=== PATIENT | male | born 1965 | race Caucasian/White ===

== ENCOUNTER 2016-05-13 05:44 | Inpatient (IN) | payer BC ==
[2016-05-13] VITALS (42 sets, daily range): BP systolic 66–157; BP diastolic 37–122; PULSE 73–125; RESP 17–33; TEMP 92.7–97.6; O2SAT 83–100
[~2016-05-13] VITALS: Ht 182.9 cm; Wt 90.3 kg
[~2016-05-13 05:44] MED LIST: CARV12.548 PO; FERR-69 PO; LEVO500T20 PO; LISI-600 PO; LISI10TA5 PO; METR500T PO; NOR10 PO; ROSU40TA PO
[2016-05-13] MEDS ORDERED: EPINEPHrine 1 MG/ML AMP ONE (06:03)
[2016-05-13 06:27] LABS: BASOPHILS # (AUTO) 0.1 K/uL (0.0-0.2); BASOPHILS % (AUTO) 1.6 % (0.0-2.0); EOSINOPHILS # (AUTO) 0.1 K/uL (0.0-0.4); EOSINOPHILS % (AUTO) 0.8 % (0.0-4.0); HEMATOCRIT 41.3 % (36-54); HEMOGLOBIN 13.5 g/dL (14.0-18.0); LYMPHOCYTES # (AUTO) 4.8 K/uL (1.0-5.5); LYMPHOCYTES % (AUTO) 51.7 % (20.5-51.5); MEAN CORPUSCULAR HEMOGLOBIN 27 pg (27-31); MEAN CORPUSCULAR HGB CONC 33 % (32-36); MEAN CORPUSCULAR VOLUME 83 fL (79.0-98.0); MONOCYTES # (AUTO) 0.5 K/uL (0.0-1.0); MONOCYTES % (AUTO) 5.4 % (1.7-9.3); NEUTROPHILS # (AUTO) 3.8 K/uL (1.8-7.7); NEUTROPHILS % (AUTO) 40.5 % (40.0-70.0); PLATELET COUNT (AUTO) 205 K/uL (130-430); RED BLOOD CELL COUNT(AUTO) 4.97 MIL/uL (4.2-6.2); RED CELL DISTRIBUTION WIDTH 14.8 % (9.0-15.0); WHITE BLOOD COUNT (AUTO) 9.3 K/uL (4.8-10.8)
[2016-05-13 06:32] LABS: CALCIUM 7.2 mg/dL (8.4-11.0); CREATININE 1.08 mg/dL (0.55-1.30); POTASSIUM 3.7 mmol/L (3.5-5.1)
[2016-05-13 06:34] LABS: INR 1.2 (0.80-1.20); PROTHROMBIN TIME 13.3 SECS (9.5-12.5)
[2016-05-13 06:38] LABS: ALBUMIN 2.3 g/dL (3.4-4.8); TOTAL BILIRUBIN 0.2 mg/dL (0.0-1.0); TOTAL PROTEIN, SERUM 5.1 g/dL (6.4-8.3)
[2016-05-13] MEDS ORDERED: ETOMIDATE 20 MG/ 10 ML VIAL (AMIDATE) IVP ONE (07:15)
[2016-05-13] MEDS ORDERED: SUCCINYLCHOLINE CHLORIDE 20 MG/ML(QUELICIN) IVP ONE (07:15)
[2016-05-13] MEDS ORDERED: NACL 0.9% 1,000 ML IV ONE ×3 (07:15)
[2016-05-13 07:22] LABS: BLOOD GAS PH 7.035 (7.350-7.450)
[2016-05-13 07:23] LABS: ABG TOTAL HEMOGLOBIN 16.1 G/dL (12.0-18.0); BLOOD GAS BASE EXCESS -16.2 mmol/L (-3.0-3.0); BLOOD GAS COHb% 1.7 % (0.5-1.5); BLOOD GAS HHB 1.5 % (0.0-6.0); BLOOD O2Hb% 96.1 % (94.0-97.0)
[2016-05-13] MEDS ORDERED: NOREPINEPHRINE 4 MG/4 ML VIAL IV ONE (07:27)
[2016-05-13] MEDS ORDERED: NOREPINEPHRINE BITARTRATE 4 MG in NS 250 ML IV ONE ×4 (07:30)
[2016-05-13] MEDS: NACL 0.9% 1,000 ML IV SCH ×2 (07:45→15:34)
[2016-05-13] MEDS ORDERED: SUCCINYLCHOLINE CHLORIDE 20 MG/ML(QUELICIN) ONE (09:00)
[2016-05-13] MEDS ORDERED: ETOMIDATE 20 MG/ 10 ML VIAL (AMIDATE) ONE ×2 (09:00→10:00)
[2016-05-13 09:21] LABS: BLOOD GAS BASE EXCESS -13.8 mmol/L (-3.0-3.0); BLOOD GAS PH 7.166 (7.350-7.450)
[2016-05-13 09:22] LABS: ABG TOTAL HEMOGLOBIN 16.3 G/dL (12.0-18.0); BLOOD GAS COHb% 0.9 % (0.5-1.5); BLOOD GAS HHB 2.9 % (0.0-6.0); BLOOD O2Hb% 95.8 % (94.0-97.0)
[2016-05-13] MEDS ORDERED: NOREPINEPHRINE BITARTRATE 4 MG in D5W 246 ML IV SCH (09:30)
[2016-05-13 09:40] LABS: INR 1.3 (0.80-1.20); PROTHROMBIN TIME 13.9 SECS (9.5-12.5)
[2016-05-13] MEDS ORDERED: ROCURONIUM BROMIDE 10 MG/ML (ZEMURON) ONE (10:00)
[2016-05-13 11:08] LABS: ABG TOTAL HEMOGLOBIN 16.9 G/dL (12.0-18.0); BLOOD GAS PH 7.184 (7.350-7.450); BLOOD O2Hb% 97.5 % (94.0-97.0)
[2016-05-13 11:09] LABS: BLOOD GAS COHb% 0.8 % (0.5-1.5)
[2016-05-13 11:10] LABS: BLOOD GAS HHB 1.3 % (0.0-6.0)
[2016-05-13 15:06] LABS: BILIRUBIN,URINE NEGATIVE (NEGATIVE); BLOOD, URINE NEGATIVE (NEGATIVE); CLARITY/URINE SL HAZY (CLEAR); COLOR,URINE YELLOW (YELLOW); GLUCOSE,URINE NEGATIVE (NEGATIVE); KETONES,URINE NEGATIVE (NEGATIVE); LEUKOCYTE ESTERASE ,URINE NEGATIVE (NEGATIVE); NITRITE, URINE NEGATIVE (NEGATIVE); PROTEIN URINE TRACE (NEGATIVE); UROBILINOGEN,URINE 0.2 (0.2-1.0)
[2016-05-13] MEDS: NOREPINEPHRINE BITARTRATE 4 MG in D5W 246 ML IV PRN ×2 (15:15→18:37)
[2016-05-13] MEDS: PROPOFOL DRIP 100 ML IV PRN (15:29)
[2016-05-13] MEDS: PANTOPRAZOLE SODIUM 40 MG/VIAL (PROTONIX) IVP SCH (15:29)
[2016-05-13 15:55] LABS: BACTERIA,URINE MODERATE /HPF (None Seen); RBC,URINE 0-3 /HPF (0-3); URINE AMORPHOUS URATE 2+ /HPF (None Seen)
[2016-05-13 16:43] LABS: BARBITURATE, URINE NEGATIVE (NEG <=200); BENZODIAZEPINE, URINE NEGATIVE (NEG <=150); CANNABINOID, URINE NEGATIVE (NEG <=50); COCAINE, URINE NEGATIVE (NEG <=150); METHAMPHETAMINES SCREEN,URINE NEGATIVE (NEG <=500); OPIATE, URINE NEGATIVE (NEG <=100); PHENCYCLIDINE SCREEN,URINE NEGATIVE (NEG <=25); UR TRICYCLIC ANTIDEPRESSANTS NEGATIVE (NEG <=300); URINE AMPHETAMINE NEGATIVE (NEG <=500); URINE METHADONE NEGATIVE (NEG <=200); URINE OXYCODONE SCREEN NEGATIVE (NEG <=100); URINE PROPOXYPHENE SCREEN NEGATIVE (NEG <=300)
[2016-05-13 17:08] LABS: CKMB RELATIVE INDEX 2.8 (0.0-2.9); CREATINE KINASE MB 46.7 ng/mL (0-3.6)
[2016-05-13] MEDS ORDERED: LORazepam 2 MG/ML VIAL ONE (17:22)
[2016-05-13 17:37] LABS: BLOOD GAS PH 7.227 (7.350-7.450)
[2016-05-13 17:38] LABS: ABG TOTAL HEMOGLOBIN 17.2 G/dL (12.0-18.0); BLOOD GAS BASE EXCESS -13.5 mmol/L (-3.0-3.0); BLOOD GAS COHb% 0.5 % (0.5-1.5); BLOOD GAS HHB 5.9 % (0.0-6.0); BLOOD O2Hb% 93.4 % (94.0-97.0)
[2016-05-13] MEDS ORDERED: LORazepam 2 MG/ML VIAL IVP PRN ×2 (17:45)
[2016-05-13 23:26] LABS: CKMB RELATIVE INDEX 2.3 (0.0-2.9); CREATINE KINASE MB 84.6 ng/mL (0-3.6)
[2016-05-13] MEDS ORDERED: DOPamine PREMIX 250 ML IV ONE (23:51)
[2016-05-14] VITALS (106 sets, daily range): BP systolic 79–142; BP diastolic 49–108; PULSE 72–151; RESP 25–37; TEMP 86.8–102.2; O2SAT 91–100
[2016-05-14 00:26] LABS: HEMATOCRIT 49.5 % (36-54); HEMOGLOBIN 15.8 g/dL (14.0-18.0)
[2016-05-14] MEDS: NACL 0.9% 1,000 ML IV SCH ×2 (01:25→07:31)
[2016-05-14] MEDS ORDERED: NOREPINEPHRINE 4 MG/4 ML VIAL IV ONE ×4 (02:30→13:18)
[2016-05-14] MEDS: PROPOFOL DRIP 100 ML IV PRN ×2 (02:37→08:45)
[2016-05-14] MEDS: NOREPINEPHRINE BITARTRATE 4 MG in D5W 246 ML IV PRN ×4 (04:51→10:56)
[2016-05-14 06:50] LABS: BASOPHILS % (AUTO) 0.2 % (0.0-2.0); EOSINOPHILS # (AUTO) 0.1 K/uL (0.0-0.4); EOSINOPHILS % (AUTO) 0.9 % (0.0-4.0); HEMOGLOBIN 15.6 g/dL (14.0-18.0); LYMPHOCYTES # (AUTO) 1.6 K/uL (1.0-5.5); MEAN CORPUSCULAR HEMOGLOBIN 27 pg (27-31); MEAN CORPUSCULAR HGB CONC 32 % (32-36); MEAN CORPUSCULAR VOLUME 83 fL (79.0-98.0); MONOCYTES # (AUTO) 0.3 K/uL (0.0-1.0); MONOCYTES % (AUTO) 1.9 % (1.7-9.3); NEUTROPHILS # (AUTO) 12.5 K/uL (1.8-7.7); PLATELET COUNT (AUTO) 244 K/uL (130-430); RED BLOOD CELL COUNT(AUTO) 5.77 MIL/uL (4.2-6.2); RED CELL DISTRIBUTION WIDTH 14.7 % (9.0-15.0); WHITE BLOOD COUNT (AUTO) 14.5 K/uL (4.8-10.8)
[2016-05-14 06:57] LABS: ALBUMIN 2.7 g/dL (3.4-4.8); CALCIUM 7.1 mg/dL (8.4-11.0); CREATININE 2.91 mg/dL (0.55-1.30); TOTAL BILIRUBIN 0.5 mg/dL (0.0-1.0); TOTAL PROTEIN, SERUM 6.1 g/dL (6.4-8.3)
[2016-05-14] MEDS: DOPamine PREMIX 250 ML IV PRN ×2 (06:58→15:33)
[2016-05-14 07:07] LABS: POTASSIUM 4.7 mmol/L (3.5-5.1)
[2016-05-14 07:54] LABS: BLOOD GAS PH 7.076 (7.350-7.450)
[2016-05-14 07:55] LABS: ABG TOTAL HEMOGLOBIN 16.5 G/dL (12.0-18.0); BLOOD GAS BASE EXCESS -19.1 mmol/L (-3.0-3.0); BLOOD GAS COHb% 0.4 % (0.5-1.5); BLOOD GAS HHB 0.7 % (0.0-6.0); BLOOD O2Hb% 98.6 % (94.0-97.0)
[2016-05-14 08:11] LABS: CKMB RELATIVE INDEX 2.4 (0.0-2.9); CREATINE KINASE MB 106.9 ng/mL (0-3.6)
[2016-05-14] MEDS: PANTOPRAZOLE SODIUM 40 MG/VIAL (PROTONIX) IVP SCH (08:55)
[2016-05-14] MEDS ORDERED: cefTRIAXone 1 GM IVPB PREMIX 50 ML IV SCH (09:00)
[2016-05-14 09:13] LABS: BLOOD GAS PH 7.156 (7.350-7.450)
[2016-05-14] MEDS ORDERED: NACL 0.9% 1,000 ML IV ONE ×2 (09:15→09:45)
[2016-05-14 09:16] LABS: BLOOD GAS BASE EXCESS -17.9 mmol/L (-3.0-3.0); BLOOD GAS COHb% 0.4 % (0.5-1.5); BLOOD GAS HHB 4.9 % (0.0-6.0); BLOOD O2Hb% 94.5 % (94.0-97.0)
[2016-05-14] MEDS ORDERED: SODIUM BICARBONATE 8.4% JECT 50 MEQ/50 ML SYRINGE ONE (09:49)
[2016-05-14] MEDS ORDERED: SODIUM BICARBONATE 8.4% JECT 50 MEQ/50 ML SYRINGE IVP ONE (10:30)
[2016-05-14] MEDS: SODIUM BICARBONATE 8.4% JECT 50 MEQ/50 ML SYRINGE ONE ×2 (10:42→10:53)
[2016-05-14 11:28] LABS: BLOOD GAS PH 7.349 (7.350-7.450)
[2016-05-14 11:29] LABS: ABG TOTAL HEMOGLOBIN 14.4 G/dL (12.0-18.0); BLOOD GAS BASE EXCESS -10.3 mmol/L (-3.0-3.0); BLOOD GAS COHb% 0.2 % (0.5-1.5); BLOOD GAS HHB 7.8 % (0.0-6.0); BLOOD O2Hb% 91.4 % (94.0-97.0)
[2016-05-14] MEDS ORDERED: SODIUM BICARBONATE 8.4% JECT 50 MEQ in 0.45% NACL 1,000 ML IV SCH (12:00)
[2016-05-14 12:30] LABS: HEMATOCRIT 41.5 % (36-54); HEMOGLOBIN 13.8 g/dL (14.0-18.0)
[2016-05-14 14:02] LABS: ABG TOTAL HEMOGLOBIN 14.8 G/dL (12.0-18.0); BLOOD GAS BASE EXCESS -10.5 mmol/L (-3.0-3.0)
[2016-05-14 14:03] LABS: BLOOD GAS COHb% 0.6 % (0.5-1.5)
[2016-05-14] MEDS ORDERED: SODIUM BICARBONATE 8.4% JECT 100 MEQ in 0.45% NACL 1,000 ML IV SCH (14:30)
[2016-05-14] MEDS ORDERED: LACTOBACILLUS RHAMNOSUS GG 1 CAP CAPSULE NG ONE (16:45)
[2016-05-14] MEDS: NOREPINEPHRINE BITARTRATE 8 MG in NS 242 ML IV PRN (16:50)
[2016-05-14] MEDS ORDERED: PHENYLEPHRINE HCL 10 MG/ML VIAL (NEOSYNEPHRINE) ONE (17:14)
[2016-05-14] MEDS ORDERED: DEXTROSE 50% JECT 50 ML DISP.SYRIN ONE (18:06)
[2016-05-14] MEDS ORDERED: COMMUNICATION ORDER XX ONE (18:15)
[2016-05-14] MEDS: PHENYLEPHRINE HCL 30 MG in NS 247 ML IV PRN (18:32)
[2016-05-14] MEDS: SODIUM BICARBONATE IV SCH (18:34)
[2016-05-14] MEDS: [UNRECOGNIZED DRUG - OTHER] IV SCH (18:34)
[2016-05-14] MEDS: D5 IV SCH (18:34)
[2016-05-14] MEDS: levETIRAcetam 500 MG in NS 100 ML IV SCH (20:13)
[2016-05-14] MEDS: LACTOBACILLUS RHAMNOSUS GG 1 CAP CAPSULE NG SCH (20:16)
[2016-05-14] MEDS ORDERED: ACETAMINOPHEN 650 MG/20.3 ML UDC ONE (21:05)
[2016-05-14 21:32] LABS: HEMATOCRIT 40.7 % (36-54); HEMOGLOBIN 13.8 g/dL (14.0-18.0)
[2016-05-15] VITALS (58 sets, daily range): BP systolic 81–124; BP diastolic 39–96; PULSE 92–139; RESP 14–34; TEMP 100.4–101.7; O2SAT 92–100
[2016-05-15] MEDS ORDERED: NOREPINEPHRINE 4 MG/4 ML VIAL IV ONE ×2 (00:34→05:36)
[2016-05-15] MEDS: NOREPINEPHRINE BITARTRATE 8 MG in NS 242 ML IV PRN ×6 (00:54→23:48)
[2016-05-15] MEDS: ACETAMINOPHEN 650 MG/20.3 ML UDC GT PRN ×3 (01:38→20:07)
[2016-05-15] MEDS: D5 IV SCH ×2 (05:38→15:55)
[2016-05-15] MEDS: SODIUM BICARBONATE IV SCH ×2 (05:38→15:55)
[2016-05-15] MEDS: [UNRECOGNIZED DRUG - OTHER] IV SCH ×2 (05:38→15:55)
[2016-05-15 06:34] LABS: EOSINOPHILS % (AUTO) 0.1 % (0.0-4.0); HEMATOCRIT 36.9 % (36-54); HEMOGLOBIN 12.3 g/dL (14.0-18.0); LYMPHOCYTES # (AUTO) 1.1 K/uL (1.0-5.5); LYMPHOCYTES % (AUTO) 6.8 % (20.5-51.5); MEAN CORPUSCULAR HEMOGLOBIN 27 pg (27-31); MEAN CORPUSCULAR HGB CONC 33 % (32-36); MEAN CORPUSCULAR VOLUME 82 fL (79.0-98.0); MONOCYTES # (AUTO) 0.3 K/uL (0.0-1.0); MONOCYTES % (AUTO) 1.9 % (1.7-9.3); NEUTROPHILS # (AUTO) 14.9 K/uL (1.8-7.7); NEUTROPHILS % (AUTO) 91.2 % (40.0-70.0); PLATELET COUNT (AUTO) 165 K/uL (130-430); RED BLOOD CELL COUNT(AUTO) 4.52 MIL/uL (4.2-6.2); RED CELL DISTRIBUTION WIDTH 14.8 % (9.0-15.0); WHITE BLOOD COUNT (AUTO) 16.3 K/uL (4.8-10.8)
[2016-05-15 07:23] LABS: ALBUMIN 1.9 g/dL (3.4-4.8); CREATININE 4.43 mg/dL (0.55-1.30); POTASSIUM 5.2 mmol/L (3.5-5.1); TOTAL BILIRUBIN 0.8 mg/dL (0.0-1.0)
[2016-05-15 07:27] LABS: BLOOD GAS PH 7.345 (7.350-7.450)
[2016-05-15] MEDS: PHENYLEPHRINE HCL 30 MG in NS 247 ML IV PRN ×5 (07:27→20:53)
[2016-05-15 07:28] LABS: ABG TOTAL HEMOGLOBIN 12.9 G/dL (12.0-18.0); BLOOD GAS BASE EXCESS -8.7 mmol/L (-3.0-3.0); BLOOD GAS COHb% 0.2 % (0.5-1.5); BLOOD GAS HHB 1.3 % (0.0-6.0); BLOOD O2Hb% 98.2 % (94.0-97.0)
[2016-05-15 07:39] LABS: CALCIUM 6.6 mg/dL (8.4-11.0)
[2016-05-15] MEDS ORDERED: PIPERACILLIN/TAZO 2.25G/DEX-IS 50 ML IV ONE (08:30)
[2016-05-15] MEDS: LACTOBACILLUS RHAMNOSUS GG 1 CAP CAPSULE NG SCH ×2 (09:03→22:06)
[2016-05-15] MEDS: PANTOPRAZOLE SODIUM 40 MG/VIAL (PROTONIX) IVP SCH (09:03)
[2016-05-15] MEDS: levETIRAcetam 500 MG in NS 100 ML IV SCH ×2 (09:03→22:05)
[2016-05-15] MEDS: PIPERACILLIN/TAZO 2.25G/DEX-IS 50 ML IV SCH ×3 (11:10→23:47)
[2016-05-15] MEDS ORDERED: PIPERACILLIN/TAZO 3.375/DEX-IS 50 ML IV SCH (12:00)
[2016-05-15] MEDS ORDERED: HEPARIN SODIUM,PORCINE 5000 UNITS/ML VIAL IVP ONE (13:30)
[2016-05-15] MEDS: INSULIN REGULAR, HUMAN 100 UNITS/ML, 10 ML VIAL (novoLIN R) SUBCUT PRN (23:46)
[2016-05-16] VITALS (34 sets, daily range): BP systolic 77–129; BP diastolic 43–78; PULSE 81–101; RESP 16–25; TEMP 100–101.1; O2SAT 99–100; Ht 182.9 cm; Wt 90.3 kg
[2016-05-16] MEDS: PHENYLEPHRINE HCL 30 MG in NS 247 ML IV PRN ×3 (00:48→12:05)
[2016-05-16] MEDS: INSULIN REGULAR, HUMAN 100 UNITS/ML, 10 ML VIAL (novoLIN R) SUBCUT PRN (03:14)
[2016-05-16] MEDS ORDERED: PHENYLEPHRINE HCL 10 MG/ML VIAL (NEOSYNEPHRINE) ONE ×2 (04:29→04:30)
[2016-05-16] MEDS: PIPERACILLIN/TAZO 2.25G/DEX-IS 50 ML IV SCH ×4 (06:14→23:48)
[2016-05-16] MEDS: NOREPINEPHRINE BITARTRATE 8 MG in NS 242 ML IV PRN ×2 (06:18→12:03)
[2016-05-16] MEDS: [UNRECOGNIZED DRUG - OTHER] IV SCH ×2 (06:18→18:22)
[2016-05-16] MEDS: SODIUM BICARBONATE IV SCH ×2 (06:18→18:22)
[2016-05-16] MEDS: D5 IV SCH ×2 (06:18→18:22)
[2016-05-16 06:51] LABS: ALBUMIN 1.8 g/dL (3.4-4.8); BILIRUBIN,DIRECT 0.3 mg/dL (0.0-0.3); CREATININE 4.62 mg/dL (0.55-1.30); HEMATOCRIT 31.4 % (36-54); HEMOGLOBIN 10.5 g/dL (14.0-18.0); MEAN CORPUSCULAR HEMOGLOBIN 27 pg (27-31); MEAN CORPUSCULAR HGB CONC 34 % (32-36); MEAN CORPUSCULAR VOLUME 80 fL (79.0-98.0); PLATELET COUNT (AUTO) 141 K/uL (130-430); POTASSIUM 3.8 mmol/L (3.5-5.1); RED BLOOD CELL COUNT(AUTO) 3.91 MIL/uL (4.2-6.2); RED CELL DISTRIBUTION WIDTH 15.3 % (9.0-15.0); THYROID STIMULATING HORMONE 5.92 uIu/mL (0.34-4.82); TOTAL BILIRUBIN 0.7 mg/dL (0.0-1.0); WHITE BLOOD COUNT (AUTO) 18.2 K/uL (4.8-10.8)
[2016-05-16 07:11] LABS: CALCIUM 6.7 mg/dL (8.4-11.0)
[2016-05-16 07:22] LABS: ABG TOTAL HEMOGLOBIN 11.2 G/dL (12.0-18.0); BLOOD GAS BASE EXCESS 1.1 mmol/L (-3.0-3.0); BLOOD GAS COHb% 0.3 % (0.5-1.5); BLOOD GAS HHB 2.2 % (0.0-6.0); BLOOD GAS PH 7.517 (7.350-7.450)
[2016-05-16] MEDS: levETIRAcetam 500 MG in NS 100 ML IV SCH ×2 (07:55→20:21)
[2016-05-16] MEDS: ACETAMINOPHEN 650 MG/20.3 ML UDC GT PRN (07:56)
[2016-05-16] MEDS: LACTOBACILLUS RHAMNOSUS GG 1 CAP CAPSULE NG SCH ×2 (07:56→20:21)
[2016-05-16] MEDS: PANTOPRAZOLE SODIUM 40 MG/VIAL (PROTONIX) IVP SCH (07:56)
[2016-05-16 07:57] LABS: BAND % (MANUAL) 18 % (0-6); BASOPHILS % (MANUAL) 0 % (0-2); EOSINOPHILS % (MANUAL) 0 % (0-7); LYMPHOCYTES % (MANUAL) 9 % (20-46); MONOCYTES % (MANUAL) 4 % (0-11)
[2016-05-16] MEDS ORDERED: COMMUNICATION ORDER XX ONE (13:00)
[2016-05-16] MEDS ORDERED: NS IV PRN (13:15)
[2016-05-16] MEDS ORDERED: PHENYLEPHRINE HCL IV PRN (13:15)
[2016-05-16] MEDS: NOREPINEPHRINE BITARTRATE 16 MG in NS 234 ML IV PRN (18:21)
[2016-05-17] VITALS (34 sets, daily range): BP systolic 93–133; BP diastolic 49–75; PULSE 75–96; RESP 14–29; TEMP 98.5–101.3; O2SAT 93–100
[2016-05-17] MEDS: PIPERACILLIN/TAZO 2.25G/DEX-IS 50 ML IV SCH ×3 (05:57→17:26)
[2016-05-17 07:33] LABS: BASOPHILS % (AUTO) 0.2 % (0.0-2.0); EOSINOPHILS % (AUTO) 0.2 % (0.0-4.0); HEMATOCRIT 29.3 % (36-54); HEMOGLOBIN 9.9 g/dL (14.0-18.0); LYMPHOCYTES # (AUTO) 1.4 K/uL (1.0-5.5); LYMPHOCYTES % (AUTO) 7.2 % (20.5-51.5); MEAN CORPUSCULAR HEMOGLOBIN 27 pg (27-31); MEAN CORPUSCULAR HGB CONC 34 % (32-36); MEAN CORPUSCULAR VOLUME 80 fL (79.0-98.0); MONOCYTES # (AUTO) 0.2 K/uL (0.0-1.0); MONOCYTES % (AUTO) 1.2 % (1.7-9.3); NEUTROPHILS # (AUTO) 17.4 K/uL (1.8-7.7); NEUTROPHILS % (AUTO) 91.2 % (40.0-70.0); PLATELET COUNT (AUTO) 104 K/uL (130-430); RED BLOOD CELL COUNT(AUTO) 3.66 MIL/uL (4.2-6.2); RED CELL DISTRIBUTION WIDTH 14.8 % (9.0-15.0)
[2016-05-17 07:55] LABS: ABG TOTAL HEMOGLOBIN 10.6 G/dL (12.0-18.0); BLOOD GAS BASE EXCESS 1.1 mmol/L (-3.0-3.0); BLOOD GAS COHb% 0.3 % (0.5-1.5); BLOOD GAS HHB 2.7 % (0.0-6.0); BLOOD GAS PH 7.464 (7.350-7.450); BLOOD O2Hb% 96.6 % (94.0-97.0)
[2016-05-17 07:56] LABS: ALBUMIN 1.7 g/dL (3.4-4.8); CREATININE 6.45 mg/dL (0.55-1.30); POTASSIUM 3.5 mmol/L (3.5-5.1); TOTAL PROTEIN, SERUM 5.6 g/dL (6.4-8.3)
[2016-05-17 08:03] LABS: CALCIUM 6.9 mg/dL (8.4-11.0)
[2016-05-17] MEDS: LACTOBACILLUS RHAMNOSUS GG 1 CAP CAPSULE NG SCH ×2 (08:41→20:29)
[2016-05-17] MEDS: levETIRAcetam 500 MG in NS 100 ML IV SCH ×2 (08:41→20:29)
[2016-05-17] MEDS: PANTOPRAZOLE SODIUM 40 MG/VIAL (PROTONIX) IVP SCH (08:41)
[2016-05-17] MEDS ORDERED: BISMUTH SUBSALICYLATE 240 ML BOTTLE PO PRN (11:45)
[2016-05-17] MEDS ORDERED: BISMUTH SUBSALICYLATE 240 ML BOTTLE NG PRN (11:45)
[2016-05-17] MEDS: [UNRECOGNIZED DRUG - OTHER] IV SCH (13:08)
[2016-05-17] MEDS: SODIUM BICARBONATE IV SCH (13:08)
[2016-05-17] MEDS: D5 IV SCH (13:08)
[2016-05-17] MEDS: BISMUTH SUBSALICYLATE 262 MG TAB.CHEW NG PRN (14:43)
[2016-05-17] MEDS ORDERED: CALCIUM GLUCONATE 2 GM in NS 100 ML IV ONE (14:45)
[2016-05-17] MEDS: NOREPINEPHRINE BITARTRATE 16 MG in NS 234 ML IV PRN (18:45)
[2016-05-17] MEDS: ACETAMINOPHEN 650 MG/20.3 ML UDC GT PRN (21:21)
[2016-05-18] VITALS (35 sets, daily range): BP systolic 112–143; BP diastolic 54–81; PULSE 80–106; RESP 17–25; TEMP 98.5–99; O2SAT 94–99
[2016-05-18] MEDS: PIPERACILLIN/TAZO 2.25G/DEX-IS 50 ML IV SCH ×4 (00:31→18:25)
[2016-05-18] MEDS: metroNIDAZOLE 500 mg/NS 100 ML IV SCH ×4 (00:43→21:49)
[2016-05-18 06:38] LABS: PROTHROMBIN TIME 11.3 SECS (9.5-12.5)
[2016-05-18 06:49] LABS: ALBUMIN 1.7 g/dL (3.4-4.8); CALCIUM 7.6 mg/dL (8.4-11.0); CREATININE 6.9 mg/dL (0.55-1.30); POTASSIUM 3.4 mmol/L (3.5-5.1); TOTAL BILIRUBIN 0.9 mg/dL (0.0-1.0); TOTAL PROTEIN, SERUM 5.9 g/dL (6.4-8.3)
[2016-05-18 06:53] LABS: HEMOGLOBIN 9.4 g/dL (14.0-18.0); MEAN CORPUSCULAR HEMOGLOBIN 28 pg (27-31); MEAN CORPUSCULAR HGB CONC 35 % (32-36); MEAN CORPUSCULAR VOLUME 80 fL (79.0-98.0); PLATELET COUNT (AUTO) 94 K/uL (130-430); RED BLOOD CELL COUNT(AUTO) 3.39 MIL/uL (4.2-6.2)
[2016-05-18 07:33] LABS: WHITE BLOOD COUNT (AUTO) 13.3 K/uL (4.8-10.8)
[2016-05-18] MEDS: PANTOPRAZOLE SODIUM 40 MG/VIAL (PROTONIX) IVP SCH (08:57)
[2016-05-18] MEDS: LACTOBACILLUS RHAMNOSUS GG 1 CAP CAPSULE NG SCH ×2 (08:57→21:49)
[2016-05-18] MEDS: D5/0.45 NS 1,000 ML IV SCH (08:58)
[2016-05-18 09:33] LABS: BLOOD GAS PH 7.492 (7.350-7.450)
[2016-05-18 09:36] LABS: BLOOD GAS COHb% 0.8 % (0.5-1.5); BLOOD GAS HHB 2.6 % (0.0-6.0); BLOOD O2Hb% 95.7 % (94.0-97.0)
[2016-05-18 10:24] LABS: ATYPICAL LYMPHOCYTES % 0 % (0-0); BAND % (MANUAL) 0 % (0-6); BASOPHILS % (MANUAL) 0 % (0-2); EOSINOPHILS % (MANUAL) 0 % (0-7); LYMPHOCYTES % (MANUAL) 15 % (20-46); MONOCYTES % (MANUAL) 5 % (0-11)
[2016-05-18] MEDS: levETIRAcetam 500 MG in NS 100 ML IV SCH (11:12)
[2016-05-18] MEDS ORDERED: levETIRAcetam 1,000 MG in NS 100 ML IV SCH (15:00)
[2016-05-18] MEDS ORDERED: VALPROATE SODIUM 500 MG in D5W 100 ML IV SCH ×2 (15:00→22:00)
[2016-05-18] MEDS ORDERED: VALPROATE SODIUM 500 MG in D5W 100 ML IV ONE (15:15)
[2016-05-18] MEDS: BISMUTH SUBSALICYLATE 262 MG TAB.CHEW NG PRN (16:03)
[2016-05-18] MEDS: SODIUM BICARBONATE IV SCH (16:04)
[2016-05-18] MEDS: D5 IV SCH (16:04)
[2016-05-18] MEDS: [UNRECOGNIZED DRUG - OTHER] IV SCH (16:04)
[2016-05-18] MEDS ORDERED: VALPROATE SODIUM 100 MG/ML VIAL (DEPACON) IV ONE (21:44)
[2016-05-18] MEDS: VALPROATE SODIUM 500 MG in D5W 100 ML IV SCH (21:50)
[2016-05-18] MEDS: ACETAMINOPHEN 650 MG/20.3 ML UDC GT PRN (22:48)
[2016-05-19] VITALS (36 sets, daily range): BP systolic 92–178; BP diastolic 47–87; PULSE 85–112; RESP 16–29; TEMP 98.1–99.4; O2SAT 99–100
[2016-05-19] MEDS ORDERED: chlorproMAZINE HCL 50 MG/ 2 ML AMP IM PRN
[2016-05-19] MEDS: PIPERACILLIN/TAZO 2.25G/DEX-IS 50 ML IV SCH ×5 (00:24→23:55)
[2016-05-19] MEDS: D5/0.45 NS 1,000 ML IV SCH ×3 (00:25→14:36)
[2016-05-19 06:45] LABS: HEMOGLOBIN 8.7 g/dL (14.0-18.0); MEAN CORPUSCULAR HEMOGLOBIN 27 pg (27-31); MEAN CORPUSCULAR HGB CONC 34 % (32-36); MEAN CORPUSCULAR VOLUME 79 fL (79.0-98.0); PLATELET COUNT (AUTO) 90 K/uL (130-430); RED BLOOD CELL COUNT(AUTO) 3.27 MIL/uL (4.2-6.2); RED CELL DISTRIBUTION WIDTH 14.9 % (9.0-15.0)
[2016-05-19] MEDS: metroNIDAZOLE 500 mg/NS 100 ML IV SCH ×3 (06:46→22:33)
[2016-05-19] MEDS: VALPROATE SODIUM 500 MG in D5W 100 ML IV SCH ×3 (06:46→21:03)
[2016-05-19 06:59] LABS: WHITE BLOOD COUNT (AUTO) 11.9 K/uL (4.8-10.8)
[2016-05-19 07:12] LABS: ALBUMIN 1.6 g/dL (3.4-4.8); CALCIUM 7.3 mg/dL (8.4-11.0); POTASSIUM 3.6 mmol/L (3.5-5.1); TOTAL BILIRUBIN 0.7 mg/dL (0.0-1.0); TOTAL PROTEIN, SERUM 5.6 g/dL (6.4-8.3)
[2016-05-19 07:25] LABS: CREATININE 8.68 mg/dL (0.55-1.30)
[2016-05-19] MEDS: PANTOPRAZOLE SODIUM 40 MG/VIAL (PROTONIX) IVP SCH (08:22)
[2016-05-19] MEDS: ACETAMINOPHEN 650 MG/20.3 ML UDC GT PRN (08:23)
[2016-05-19] MEDS: LACTOBACILLUS RHAMNOSUS GG 1 CAP CAPSULE NG SCH ×2 (08:23→21:02)
[2016-05-19 08:25] LABS: ATYPICAL LYMPHOCYTES % 0 % (0-0); BAND % (MANUAL) 0 % (0-6); BASOPHILS % (MANUAL) 0 % (0-2); EOSINOPHILS % (MANUAL) 2 % (0-7); LYMPHOCYTES % (MANUAL) 22 % (20-46); MONOCYTES % (MANUAL) 8 % (0-11)
[2016-05-19] MEDS ORDERED: LORazepam 2 MG/ML VIAL IM ONE (08:45)
[2016-05-19] MEDS ORDERED: LORazepam 2 MG/ML VIAL ONE (08:46)
[2016-05-19] MEDS ORDERED: ALTEPLASE 2 MG VIAL MC ONE ×2 (10:00→10:15)
[2016-05-19 10:16] LABS: HEPATITIS A AB, IgM Negative (Negative); HEPATITIS B CORE AB, IgM Negative (Negative); HEPATITIS B SURFACE AG Negative (Negative)
[2016-05-19] MEDS ORDERED: DIATR MEGLU/DIATRIZ SOD 30 ML SOLUTION PO ONE (10:47)
[2016-05-19] MEDS: D5 IV SCH (11:59)
[2016-05-19] MEDS: [UNRECOGNIZED DRUG - OTHER] IV SCH (11:59)
[2016-05-19] MEDS: SODIUM BICARBONATE IV SCH (11:59)
[2016-05-19] MEDS: LORazepam 2 MG/ML VIAL IM PRN (18:06)
[2016-05-19] MEDS: LORazepam 2 MG/ML VIAL IVP PRN (22:04)
[2016-05-20] VITALS (36 sets, daily range): BP systolic 114–151; BP diastolic 57–84; PULSE 82–142; RESP 18–34; TEMP 98.1–100.2; O2SAT 99–100
[2016-05-20] MEDS: LORazepam 2 MG/ML VIAL IVP PRN ×3 (02:11→22:56)
[2016-05-20] MEDS: SODIUM BICARBONATE IV SCH (03:04)
[2016-05-20] MEDS: [UNRECOGNIZED DRUG - OTHER] IV SCH (03:04)
[2016-05-20] MEDS: D5 IV SCH (03:04)
[2016-05-20] MEDS: D5/0.45 NS 1,000 ML IV SCH ×2 (04:12→10:45)
[2016-05-20] MEDS: PIPERACILLIN/TAZO 2.25G/DEX-IS 50 ML IV SCH ×3 (05:24→18:21)
[2016-05-20] MEDS: VALPROATE SODIUM 500 MG in D5W 100 ML IV SCH ×4 (05:26→22:08)
[2016-05-20] MEDS: metroNIDAZOLE 500 mg/NS 100 ML IV SCH ×4 (06:01→22:09)
[2016-05-20 07:05] LABS: CREATININE 6.99 mg/dL (0.55-1.30); POTASSIUM 3.3 mmol/L (3.5-5.1)
[2016-05-20 07:10] LABS: ALBUMIN 1.7 g/dL (3.4-4.8); TOTAL BILIRUBIN 0.6 mg/dL (0.0-1.0); TOTAL PROTEIN, SERUM 5.1 g/dL (6.4-8.3)
[2016-05-20 07:17] LABS: AMYLASE 530 U/L (0-100)
[2016-05-20 07:23] LABS: HEMATOCRIT 27.1 % (36-54); HEMOGLOBIN 9.3 g/dL (14.0-18.0); MEAN CORPUSCULAR HEMOGLOBIN 27 pg (27-31); MEAN CORPUSCULAR HGB CONC 34 % (32-36); MEAN CORPUSCULAR VOLUME 79 fL (79.0-98.0); PLATELET COUNT (AUTO) 114 K/uL (130-430); RED BLOOD CELL COUNT(AUTO) 3.42 MIL/uL (4.2-6.2); RED CELL DISTRIBUTION WIDTH 14.6 % (9.0-15.0); WHITE BLOOD COUNT (AUTO) 13.9 K/uL (4.8-10.8)
[2016-05-20 07:40] LABS: LIPASE 3291 U/L (73-393)
[2016-05-20] MEDS: LACTOBACILLUS RHAMNOSUS GG 1 CAP CAPSULE NG SCH ×2 (08:00→20:12)
[2016-05-20] MEDS: PANTOPRAZOLE SODIUM 40 MG/VIAL (PROTONIX) IVP SCH (08:01)
[2016-05-20] MEDS ORDERED: *TPN PER PHARMACY XX PRN (08:45)
[2016-05-20 09:36] LABS: PHOSPHORUS 3.7 mg/dL (2.7-4.5)
[2016-05-20] MEDS ORDERED: POTASSIUM CHLORIDE 40 MEQ in NS 250 ML IV ONE (09:45)
[2016-05-20] MEDS: LORazepam 2 MG/ML VIAL IM PRN (10:48)
[2016-05-20 12:21] LABS: BAND % (MANUAL) 5 % (0-6); BASOPHILS % (MANUAL) 0 % (0-2); EOSINOPHILS % (MANUAL) 2 % (0-7); LYMPHOCYTES % (MANUAL) 14 % (20-46); MONOCYTES % (MANUAL) 9 % (0-11)
[2016-05-20] MEDS ORDERED: SODIUM CHLORIDE IV SCH ×9 (13:00)
[2016-05-20] MEDS ORDERED: SODIUM ACETATE IV SCH ×9 (13:00)
[2016-05-20] MEDS ORDERED: TPN CENTRAL IV SCH ×9 (13:00)
[2016-05-20] MEDS ORDERED: [UNRECOGNIZED DRUG - OTHER] IV SCH ×9 (13:00)
[2016-05-21] VITALS (36 sets, daily range): BP systolic 103–138; BP diastolic 46–77; PULSE 96–118; RESP 17–27; TEMP 98.7–100.5; O2SAT 99–100
[2016-05-21] MEDS: PIPERACILLIN/TAZO 2.25G/DEX-IS 50 ML IV SCH ×5 (00:25→23:43)
[2016-05-21] MEDS: LORazepam 2 MG/ML VIAL IVP PRN ×4 (00:32→21:49)
[2016-05-21] MEDS: VALPROATE SODIUM 500 MG in D5W 100 ML IV SCH ×3 (05:31→21:04)
[2016-05-21] MEDS: metroNIDAZOLE 500 mg/NS 100 ML IV SCH ×3 (06:44→22:25)
[2016-05-21 07:27] LABS: HEMATOCRIT 26.9 % (36-54); HEMOGLOBIN 8.9 g/dL (14.0-18.0); MEAN CORPUSCULAR HEMOGLOBIN 26 pg (27-31); MEAN CORPUSCULAR HGB CONC 33 % (32-36); MEAN CORPUSCULAR VOLUME 79 fL (79.0-98.0); PLATELET COUNT (AUTO) 188 K/uL (130-430); RED CELL DISTRIBUTION WIDTH 14.6 % (9.0-15.0)
[2016-05-21 07:33] LABS: CALCIUM 7.7 mg/dL (8.4-11.0); POTASSIUM 3.7 mmol/L (3.5-5.1)
[2016-05-21 07:50] LABS: CREATININE 9.32 mg/dL (0.55-1.30)
[2016-05-21 07:57] LABS: WHITE BLOOD COUNT (AUTO) 15.2 K/uL (4.8-10.8)
[2016-05-21] MEDS: LACTOBACILLUS RHAMNOSUS GG 1 CAP CAPSULE NG SCH ×2 (09:23→20:58)
[2016-05-21] MEDS: PANTOPRAZOLE SODIUM 40 MG/VIAL (PROTONIX) IVP SCH (09:23)
[2016-05-21 09:27] LABS: PHOSPHORUS 6.5 mg/dL (2.7-4.5)
[2016-05-21 09:31] LABS: BLOOD GAS PH 7.394 (7.350-7.450)
[2016-05-21 09:32] LABS: ABG TOTAL HEMOGLOBIN 9.7 G/dL (12.0-18.0); BLOOD GAS BASE EXCESS -8.3 mmol/L (-3.0-3.0); BLOOD GAS COHb% 0.3 % (0.5-1.5); BLOOD GAS HHB 1.7 % (0.0-6.0); BLOOD O2Hb% 97.3 % (94.0-97.0)
[2016-05-21 09:33] LABS: TOTAL BILIRUBIN 0.6 mg/dL (0.0-1.0)
[2016-05-21 09:34] LABS: ALBUMIN 1.7 g/dL (3.4-4.8); PHOSPHORUS 6.5 mg/dL (2.7-4.5); TOTAL PROTEIN, SERUM 5.6 g/dL (6.4-8.3)
[2016-05-21] MEDS ORDERED: ALTEPLASE 2 MG VIAL MC ONE (10:00)
[2016-05-21] MEDS: LORazepam 2 MG/ML VIAL IM PRN ×2 (10:58→14:45)
[2016-05-21 11:11] LABS: ATYPICAL LYMPHOCYTES % 0 % (0-0); BAND % (MANUAL) 3 % (0-6); BASOPHILS % (MANUAL) 0 % (0-2); EOSINOPHILS % (MANUAL) 4 % (0-7); LYMPHOCYTES % (MANUAL) 15 % (20-46); MONOCYTES % (MANUAL) 13 % (0-11)
[2016-05-21] MEDS: [UNRECOGNIZED DRUG - OTHER] IV SCH ×9 (12:26)
[2016-05-21] MEDS: SODIUM CHLORIDE IV SCH ×9 (12:26)
[2016-05-21] MEDS: SODIUM ACETATE IV SCH ×9 (12:26)
[2016-05-21] MEDS: TPN CENTRAL IV SCH ×9 (12:26)
[2016-05-22] VITALS (42 sets, daily range): BP systolic 101–145; BP diastolic 41–78; PULSE 85–109; RESP 13–28; TEMP 99–100.1; O2SAT 98–100
[2016-05-22] MEDS: LORazepam 2 MG/ML VIAL IVP PRN ×7 (02:40→23:45)
[2016-05-22] MEDS: SODIUM CHLORIDE IV SCH ×9 (02:49)
[2016-05-22] MEDS: [UNRECOGNIZED DRUG - OTHER] IV SCH ×9 (02:49)
[2016-05-22] MEDS: TPN CENTRAL IV SCH ×9 (02:49)
[2016-05-22] MEDS: SODIUM ACETATE IV SCH ×9 (02:49)
[2016-05-22] MEDS: VALPROATE SODIUM 500 MG in D5W 100 ML IV SCH ×2 (05:10→21:42)
[2016-05-22] MEDS: PIPERACILLIN/TAZO 2.25G/DEX-IS 50 ML IV SCH ×3 (06:14→18:40)
[2016-05-22 06:33] LABS: BASOPHILS # (AUTO) 0.1 K/uL (0.0-0.2); BASOPHILS % (AUTO) 0.4 % (0.0-2.0); EOSINOPHILS # (AUTO) 0.2 K/uL (0.0-0.4); EOSINOPHILS % (AUTO) 1.5 % (0.0-4.0); HEMATOCRIT 25.8 % (36-54); HEMOGLOBIN 8.3 g/dL (14.0-18.0); LYMPHOCYTES # (AUTO) 1.6 K/uL (1.0-5.5); MEAN CORPUSCULAR HEMOGLOBIN 26 pg (27-31); MEAN CORPUSCULAR HGB CONC 32 % (32-36); MEAN CORPUSCULAR VOLUME 81 fL (79.0-98.0); MONOCYTES # (AUTO) 1.4 K/uL (0.0-1.0); MONOCYTES % (AUTO) 8.6 % (1.7-9.3); NEUTROPHILS # (AUTO) 13.1 K/uL (1.8-7.7); NEUTROPHILS % (AUTO) 79.5 % (40.0-70.0); PLATELET COUNT (AUTO) 250 K/uL (130-430); RED BLOOD CELL COUNT(AUTO) 3.19 MIL/uL (4.2-6.2); RED CELL DISTRIBUTION WIDTH 14.7 % (9.0-15.0); WHITE BLOOD COUNT (AUTO) 16.4 K/uL (4.8-10.8)
[2016-05-22] MEDS: metroNIDAZOLE 500 mg/NS 100 ML IV SCH (06:47)
[2016-05-22 07:34] LABS: ALBUMIN 1.6 g/dL (3.4-4.8); CALCIUM 7.8 mg/dL (8.4-11.0); CREATININE 8.94 mg/dL (0.55-1.30); PHOSPHORUS 6.7 mg/dL (2.7-4.5); POTASSIUM 3.6 mmol/L (3.5-5.1); TOTAL BILIRUBIN 0.5 mg/dL (0.0-1.0)
[2016-05-22] MEDS: LACTOBACILLUS RHAMNOSUS GG 1 CAP CAPSULE NG SCH ×2 (09:00→20:55)
[2016-05-22] MEDS: PANTOPRAZOLE SODIUM 40 MG/VIAL (PROTONIX) IVP SCH (10:02)
[2016-05-22] MEDS: 0.45% NACL 1,000 ML IV SCH (13:06)
[2016-05-22] MEDS: FLUCONAZOLE 200 mg/ NS 100 ML IV SCH (13:37)
[2016-05-22] MEDS ORDERED: SODIUM ACETATE IV SCH ×18 (18:00)
[2016-05-22] MEDS ORDERED: TPN CENTRAL IV SCH ×18 (18:00)
[2016-05-22] MEDS ORDERED: [UNRECOGNIZED DRUG - OTHER] IV SCH ×9 (18:00)
[2016-05-22] MEDS ORDERED: SODIUM CHLORIDE IV SCH ×18 (18:00)
[2016-05-22] MEDS ORDERED: [UNRECOGNIZED DRUG - OTHER] IV SCH ×9 (18:00)
[2016-05-22] MEDS: LIPASE/PROTEASE/AMYLASE 1 CAP GT SCH (18:39)
[2016-05-23] VITALS (36 sets, daily range): BP systolic 103–155; BP diastolic 45–83; PULSE 65–102; RESP 14–25; TEMP 97.5–100.2; O2SAT 93–100
[2016-05-23] MEDS: PIPERACILLIN/TAZO 2.25G/DEX-IS 50 ML IV SCH ×5 (00:34→23:50)
[2016-05-23] MEDS: LORazepam 2 MG/ML VIAL IVP PRN ×2 (00:35→03:38)
[2016-05-23] MEDS: VALPROATE SODIUM 500 MG in D5W 100 ML IV SCH ×4 (02:04→20:01)
[2016-05-23 06:24] LABS: BASOPHILS % (AUTO) 0.1 % (0.0-2.0); EOSINOPHILS # (AUTO) 0.2 K/uL (0.0-0.4); EOSINOPHILS % (AUTO) 1.6 % (0.0-4.0); HEMATOCRIT 24.9 % (36-54); HEMOGLOBIN 8.1 g/dL (14.0-18.0); LYMPHOCYTES # (AUTO) 1.4 K/uL (1.0-5.5); LYMPHOCYTES % (AUTO) 10.8 % (20.5-51.5); MEAN CORPUSCULAR HEMOGLOBIN 26 pg (27-31); MEAN CORPUSCULAR HGB CONC 33 % (32-36); MEAN CORPUSCULAR VOLUME 81 fL (79.0-98.0); MONOCYTES % (AUTO) 7.8 % (1.7-9.3); NEUTROPHILS # (AUTO) 10.8 K/uL (1.8-7.7); NEUTROPHILS % (AUTO) 79.7 % (40.0-70.0); PLATELET COUNT (AUTO) 369 K/uL (130-430); RED BLOOD CELL COUNT(AUTO) 3.07 MIL/uL (4.2-6.2); RED CELL DISTRIBUTION WIDTH 14.5 % (9.0-15.0); WHITE BLOOD COUNT (AUTO) 13.4 K/uL (4.8-10.8)
[2016-05-23 07:18] LABS: ALBUMIN 1.7 g/dL (3.4-4.8); CALCIUM 7.7 mg/dL (8.4-11.0); PHOSPHORUS 8.9 mg/dL (2.7-4.5); POTASSIUM 3.4 mmol/L (3.5-5.1); TOTAL BILIRUBIN 0.5 mg/dL (0.0-1.0); TOTAL PROTEIN, SERUM 6.2 g/dL (6.4-8.3)
[2016-05-23 07:27] LABS: CREATININE 10.7 mg/dL (0.55-1.30)
[2016-05-23] MEDS: PANTOPRAZOLE SODIUM 40 MG/VIAL (PROTONIX) IVP SCH (09:15)
[2016-05-23] MEDS: LACTOBACILLUS RHAMNOSUS GG 1 CAP CAPSULE NG SCH ×2 (09:15→21:51)
[2016-05-23] MEDS: LIPASE/PROTEASE/AMYLASE 1 CAP GT SCH ×3 (09:16→18:47)
[2016-05-23] MEDS ORDERED: OCTREOTIDE ACETATE 100 MCG/ML AMP SUBCUT ONE (10:45)
[2016-05-23 11:14] LABS: BASOPHILS # (AUTO) 0.1 K/uL (0.0-0.2); BASOPHILS % (AUTO) 0.5 % (0.0-2.0); EOSINOPHILS # (AUTO) 0.2 K/uL (0.0-0.4); EOSINOPHILS % (AUTO) 1.4 % (0.0-4.0); HEMATOCRIT 24.2 % (36-54); HEMOGLOBIN 8.2 g/dL (14.0-18.0); LYMPHOCYTES # (AUTO) 1.4 K/uL (1.0-5.5); LYMPHOCYTES % (AUTO) 9.9 % (20.5-51.5); MEAN CORPUSCULAR HEMOGLOBIN 27 pg (27-31); MEAN CORPUSCULAR HGB CONC 34 % (32-36); MEAN CORPUSCULAR VOLUME 79 fL (79.0-98.0); MONOCYTES # (AUTO) 1.1 K/uL (0.0-1.0); MONOCYTES % (AUTO) 7.5 % (1.7-9.3); NEUTROPHILS # (AUTO) 11.6 K/uL (1.8-7.7); NEUTROPHILS % (AUTO) 80.7 % (40.0-70.0); PLATELET COUNT (AUTO) 389 K/uL (130-430); RED BLOOD CELL COUNT(AUTO) 3.06 MIL/uL (4.2-6.2); RED CELL DISTRIBUTION WIDTH 14.5 % (9.0-15.0); WHITE BLOOD COUNT (AUTO) 14.4 K/uL (4.8-10.8)
[2016-05-23] MEDS: 0.45% NACL 1,000 ML IV SCH ×2 (11:27→13:58)
[2016-05-23] MEDS: FLUCONAZOLE 200 mg/ NS 100 ML IV SCH (11:34)
[2016-05-23 11:42] LABS: INR 1.2 (0.80-1.20); PROTHROMBIN TIME 12.6 SECS (9.5-12.5)
[2016-05-23] MEDS: OCTREOTIDE ACETATE 100 MCG/ML AMP SUBCUT SCH ×2 (13:27→21:55)
[2016-05-23] MEDS: CALCIUM GLUCONATE IV SCH ×8 (13:34)
[2016-05-23] MEDS: TPN CENTRAL IV SCH ×8 (13:34)
[2016-05-23] MEDS: [UNRECOGNIZED DRUG - OTHER] IV SCH ×8 (13:34)
[2016-05-23] MEDS: SODIUM ACETATE IV SCH ×8 (13:34)
[2016-05-23] MEDS ORDERED: LOPERAMIDE HCL 2 MG CAPSULE NG ONE (15:15)
[2016-05-23] MEDS ORDERED: HEPARIN SODIUM,PORCINE 5000 UNITS/ML VIAL ONE (17:06)
[2016-05-24] VITALS (34 sets, daily range): BP systolic 119–159; BP diastolic 60–84; PULSE 78–99; RESP 12–26; TEMP 98.6–99.4; O2SAT 98–100
[2016-05-24] MEDS: VALPROATE SODIUM 500 MG in D5W 100 ML IV SCH ×4 (02:32→20:10)
[2016-05-24] MEDS: 0.45% NACL 1,000 ML IV SCH ×2 (02:32→17:08)
[2016-05-24] MEDS: PIPERACILLIN/TAZO 2.25G/DEX-IS 50 ML IV SCH ×3 (05:31→17:07)
[2016-05-24] MEDS: CALCIUM GLUCONATE IV SCH ×16 (05:32→23:58)
[2016-05-24] MEDS: SODIUM ACETATE IV SCH ×16 (05:32→23:58)
[2016-05-24] MEDS: [UNRECOGNIZED DRUG - OTHER] IV SCH ×16 (05:32→23:58)
[2016-05-24] MEDS: TPN CENTRAL IV SCH ×16 (05:32→23:58)
[2016-05-24] MEDS: OCTREOTIDE ACETATE 100 MCG/ML AMP SUBCUT SCH ×3 (05:45→21:33)
[2016-05-24 06:56] LABS: BASOPHILS % (AUTO) 0.2 % (0.0-2.0); EOSINOPHILS # (AUTO) 0.3 K/uL (0.0-0.4); EOSINOPHILS % (AUTO) 2.6 % (0.0-4.0); HEMATOCRIT 25.6 % (36-54); HEMOGLOBIN 8.3 g/dL (14.0-18.0); LYMPHOCYTES # (AUTO) 1.1 K/uL (1.0-5.5); LYMPHOCYTES % (AUTO) 8.8 % (20.5-51.5); MEAN CORPUSCULAR HEMOGLOBIN 26 pg (27-31); MEAN CORPUSCULAR HGB CONC 32 % (32-36); MEAN CORPUSCULAR VOLUME 81 fL (79.0-98.0); MONOCYTES # (AUTO) 1.4 K/uL (0.0-1.0); NEUTROPHILS # (AUTO) 9.9 K/uL (1.8-7.7); NEUTROPHILS % (AUTO) 77.4 % (40.0-70.0); PLATELET COUNT (AUTO) 426 K/uL (130-430); RED BLOOD CELL COUNT(AUTO) 3.15 MIL/uL (4.2-6.2); RED CELL DISTRIBUTION WIDTH 14.7 % (9.0-15.0); WHITE BLOOD COUNT (AUTO) 12.7 K/uL (4.8-10.8)
[2016-05-24 07:22] LABS: ALBUMIN 1.7 g/dL (3.4-4.8); CALCIUM 7.6 mg/dL (8.4-11.0); PHOSPHORUS 10.5 mg/dL (2.7-4.5); POTASSIUM 4.1 mmol/L (3.5-5.1); TOTAL BILIRUBIN 0.5 mg/dL (0.0-1.0); TOTAL PROTEIN, SERUM 6.5 g/dL (6.4-8.3)
[2016-05-24 07:46] LABS: CREATININE 12.12 mg/dL (0.55-1.30)
[2016-05-24] MEDS ORDERED: MEPERIDINE HCL/PF 25 MG/ML DISP.SYRIN IVP PRN (08:00)
[2016-05-24] MEDS ORDERED: MORPHINE 2 MG/ML INJ. SYRINGE IVP PRN (08:00)
[2016-05-24] MEDS ORDERED: ONDANSETRON HCL 4 MG/2 ML VIAL IVP PRN (08:00)
[2016-05-24] MEDS ORDERED: LABETALOL 100 MG/ 20ML VIAL IVP PRN (08:00)
[2016-05-24] MEDS ORDERED: HYDROmorphone 1 MG INJ. 1 MG/ML AMPUL IVP PRN ×3 (08:00)
[2016-05-24] MEDS: PANTOPRAZOLE SODIUM 40 MG/VIAL (PROTONIX) IVP SCH (08:52)
[2016-05-24] MEDS: LACTOBACILLUS RHAMNOSUS GG 1 CAP CAPSULE NG SCH ×2 (08:52→21:33)
[2016-05-24] MEDS: LIPASE/PROTEASE/AMYLASE 1 CAP GT SCH ×3 (08:53→17:08)
[2016-05-24] MEDS: FLUCONAZOLE 200 mg/ NS 100 ML IV SCH (11:05)
[2016-05-24] MEDS ORDERED: SEVOFLURANE 15 MIN GAS INH ONE (14:00)
[2016-05-24] MEDS ORDERED: MIDAZOLAM HCL 5 MG/5 ML VIAL ONE (14:00)
[2016-05-24] MEDS ORDERED: LIDOCAINE/EPI 1% 1:100000 20 ML VIAL INJ ONE (14:00)
[2016-05-24] MEDS ORDERED: PROPOFOL 200MG/ 20ML VIAL (DIPRIVAN) IV ONE (14:00)
[2016-05-24] MEDS ORDERED: fentaNYL CITRATE 250 MCG/5 ML AMP ONE (14:00)
[2016-05-24] MEDS ORDERED: ROCURONIUM BROMIDE 10 MG/ML (ZEMURON) ONE (14:00)
[2016-05-24] MEDS ORDERED: HEPARIN SODIUM,PORCINE 5000 UNITS/ML VIAL ONE (16:23)
[2016-05-24] MEDS: ACETAMINOPHEN 650 MG/20.3 ML UDC GT PRN (22:29)
[2016-05-25] VITALS (33 sets, daily range): BP systolic 137–163; BP diastolic 65–94; PULSE 85–102; RESP 12–26; TEMP 98–99.3; O2SAT 98–100
[2016-05-25] MEDS: VALPROATE SODIUM 500 MG in D5W 100 ML IV SCH ×4 (02:56→19:57)
[2016-05-25] MEDS: 0.45% NACL 1,000 ML IV SCH (03:00)
[2016-05-25] MEDS: PIPERACILLIN/TAZO 2.25G/DEX-IS 50 ML IV SCH ×5 (05:17→23:10)
[2016-05-25] MEDS: OCTREOTIDE ACETATE 100 MCG/ML AMP SUBCUT SCH ×3 (06:18→21:18)
[2016-05-25 06:52] LABS: INR 1.1 (0.80-1.20); PROTHROMBIN TIME 12.3 SECS (9.5-12.5)
[2016-05-25 06:54] LABS: ALBUMIN 1.6 g/dL (3.4-4.8); CALCIUM 7.3 mg/dL (8.4-11.0); POTASSIUM 3.6 mmol/L (3.5-5.1); TOTAL BILIRUBIN 0.4 mg/dL (0.0-1.0); TOTAL PROTEIN, SERUM 6.3 g/dL (6.4-8.3)
[2016-05-25 07:26] LABS: IRON (SERUM) 41 mcg/dL (59-158); TOTAL IRON BIND. CAPACITY 184 ug/dL (250-450)
[2016-05-25] MEDS: LIPASE/PROTEASE/AMYLASE 1 CAP GT SCH ×3 (08:00→16:38)
[2016-05-25] MEDS: LACTOBACILLUS RHAMNOSUS GG 1 CAP CAPSULE NG SCH ×2 (09:00→21:00)
[2016-05-25] MEDS: HEPARIN SODIUM,PORCINE 5000 UNITS/ML VIAL SUBCUT SCH ×2 (09:00→21:19)
[2016-05-25] MEDS: FLUCONAZOLE 200 mg/ NS 100 ML IV SCH (09:42)
[2016-05-25] MEDS: PANTOPRAZOLE SODIUM 40 MG/VIAL (PROTONIX) IVP SCH (09:42)
[2016-05-25] MEDS: LABETALOL 100 MG/ 20ML VIAL IVP PRN (10:56)
[2016-05-25] MEDS: TPN CENTRAL IV SCH ×8 (16:38)
[2016-05-25] MEDS: SODIUM ACETATE IV SCH ×8 (16:38)
[2016-05-25] MEDS: CALCIUM GLUCONATE IV SCH ×8 (16:38)
[2016-05-25] MEDS: [UNRECOGNIZED DRUG - OTHER] IV SCH ×8 (16:38)
[2016-05-26] VITALS (35 sets, daily range): BP systolic 121–175; BP diastolic 2–92; PULSE 78–111; RESP 15–29; TEMP 98–98.3; O2SAT 97–100
[2016-05-26] MEDS: ACETAMINOPHEN 650 MG/20.3 ML UDC GT PRN (00:17)
[2016-05-26] MEDS: VALPROATE SODIUM 500 MG in D5W 100 ML IV SCH ×4 (01:45→20:16)
[2016-05-26] MEDS: PIPERACILLIN/TAZO 2.25G/DEX-IS 50 ML IV SCH ×4 (05:24→23:16)
[2016-05-26] MEDS: OCTREOTIDE ACETATE 100 MCG/ML AMP SUBCUT SCH ×3 (05:59→22:00)
[2016-05-26 06:44] LABS: BASOPHILS % (AUTO) 0.2 % (0.0-2.0); EOSINOPHILS # (AUTO) 0.2 K/uL (0.0-0.4); EOSINOPHILS % (AUTO) 1.3 % (0.0-4.0); HEMATOCRIT 23.5 % (36-54); HEMOGLOBIN 7.8 g/dL (14.0-18.0); LYMPHOCYTES # (AUTO) 1.1 K/uL (1.0-5.5); LYMPHOCYTES % (AUTO) 9.7 % (20.5-51.5); MEAN CORPUSCULAR HEMOGLOBIN 27 pg (27-31); MEAN CORPUSCULAR HGB CONC 33 % (32-36); MEAN CORPUSCULAR VOLUME 81 fL (79.0-98.0); MONOCYTES # (AUTO) 1.4 K/uL (0.0-1.0); NEUTROPHILS # (AUTO) 9.1 K/uL (1.8-7.7); NEUTROPHILS % (AUTO) 76.8 % (40.0-70.0); PLATELET COUNT (AUTO) 519 K/uL (130-430); RED BLOOD CELL COUNT(AUTO) 2.91 MIL/uL (4.2-6.2); RED CELL DISTRIBUTION WIDTH 14.6 % (9.0-15.0); WHITE BLOOD COUNT (AUTO) 11.8 K/uL (4.8-10.8)
[2016-05-26 06:54] LABS: ALBUMIN 1.7 g/dL (3.4-4.8); CALCIUM 7.2 mg/dL (8.4-11.0); PHOSPHORUS 8.4 mg/dL (2.7-4.5); POTASSIUM 3.6 mmol/L (3.5-5.1); TOTAL BILIRUBIN 0.4 mg/dL (0.0-1.0); TOTAL PROTEIN, SERUM 6.5 g/dL (6.4-8.3)
[2016-05-26 07:14] LABS: CREATININE 10.2 mg/dL (0.55-1.30)
[2016-05-26] MEDS: LACTOBACILLUS RHAMNOSUS GG 1 CAP CAPSULE NG SCH ×2 (08:48→20:16)
[2016-05-26] MEDS: LIPASE/PROTEASE/AMYLASE 1 CAP GT SCH ×3 (08:48→17:53)
[2016-05-26] MEDS: PANTOPRAZOLE SODIUM 40 MG/VIAL (PROTONIX) IVP SCH (08:49)
[2016-05-26] MEDS: HEPARIN SODIUM,PORCINE 5000 UNITS/ML VIAL SUBCUT SCH ×2 (09:00→20:18)
[2016-05-26] MEDS ORDERED: HEPARIN SODIUM,PORCINE 5000 UNITS/ML VIAL IVP ONE (09:30)
[2016-05-26 10:21] LABS: FERRITIN 292 ng/mL (30-400)
[2016-05-26] MEDS: 0.45% NACL 1,000 ML IV SCH (10:36)
[2016-05-26] MEDS: FLUCONAZOLE 200 mg/ NS 100 ML IV SCH (10:39)
[2016-05-26] MEDS: CALCIUM GLUCONATE IV SCH ×8 (10:41)
[2016-05-26] MEDS: SODIUM ACETATE IV SCH ×8 (10:41)
[2016-05-26] MEDS: [UNRECOGNIZED DRUG - OTHER] IV SCH ×8 (10:41)
[2016-05-26] MEDS: TPN CENTRAL IV SCH ×8 (10:41)
[2016-05-26] MEDS: LABETALOL 100 MG/ 20ML VIAL IVP PRN ×3 (10:53→17:53)
[2016-05-26] MEDS: SOD FERRIC GLUC COMPLEX/SUC 125 MG in NS 100 ML IV SCH (13:13)
[2016-05-26] MEDS: MORPHINE 2 MG/ML INJ. SYRINGE IVP PRN ×2 (15:57→21:59)
[2016-05-27] VITALS (33 sets, daily range): BP systolic 134–168; BP diastolic 65–95; PULSE 79–102; RESP 16–30; TEMP 98.3–98.7; O2SAT 98–100
[2016-05-27] MEDS: VALPROATE SODIUM 500 MG in D5W 100 ML IV SCH ×4 (02:48→20:54)
[2016-05-27] MEDS: MORPHINE 2 MG/ML INJ. SYRINGE IVP PRN ×4 (02:49→23:14)
[2016-05-27] MEDS: TPN CENTRAL IV SCH ×24 (04:36→18:48)
[2016-05-27] MEDS: [UNRECOGNIZED DRUG - OTHER] IV SCH ×24 (04:36→18:48)
[2016-05-27] MEDS: SODIUM ACETATE IV SCH ×24 (04:36→18:48)
[2016-05-27] MEDS: CALCIUM GLUCONATE IV SCH ×24 (04:36→18:48)
[2016-05-27] MEDS: 0.45% NACL 1,000 ML IV SCH ×2 (05:23→22:07)
[2016-05-27] MEDS: PIPERACILLIN/TAZO 2.25G/DEX-IS 50 ML IV SCH ×4 (06:09→23:16)
[2016-05-27] MEDS: OCTREOTIDE ACETATE 100 MCG/ML AMP SUBCUT SCH ×3 (06:15→23:11)
[2016-05-27 06:47] LABS: ALBUMIN 1.6 g/dL (3.4-4.8); CALCIUM 7.1 mg/dL (8.4-11.0); TOTAL BILIRUBIN 0.3 mg/dL (0.0-1.0); TOTAL PROTEIN, SERUM 6.3 g/dL (6.4-8.3)
[2016-05-27 06:50] LABS: EOSINOPHILS # (AUTO) 0.2 K/uL (0.0-0.4); EOSINOPHILS % (AUTO) 1.3 % (0.0-4.0); HEMATOCRIT 23.3 % (36-54); HEMOGLOBIN 7.8 g/dL (14.0-18.0); LYMPHOCYTES # (AUTO) 1.2 K/uL (1.0-5.5); LYMPHOCYTES % (AUTO) 9.7 % (20.5-51.5); MEAN CORPUSCULAR HEMOGLOBIN 27 pg (27-31); MEAN CORPUSCULAR HGB CONC 33 % (32-36); MEAN CORPUSCULAR VOLUME 80 fL (79.0-98.0); MONOCYTES # (AUTO) 1.8 K/uL (0.0-1.0); MONOCYTES % (AUTO) 13.7 % (1.7-9.3); NEUTROPHILS # (AUTO) 9.7 K/uL (1.8-7.7); NEUTROPHILS % (AUTO) 75.3 % (40.0-70.0); PLATELET COUNT (AUTO) 361 K/uL (130-430); RED CELL DISTRIBUTION WIDTH 14.6 % (9.0-15.0); WHITE BLOOD COUNT (AUTO) 12.9 K/uL (4.8-10.8)
[2016-05-27 07:11] LABS: CREATININE 8.05 mg/dL (0.55-1.30)
[2016-05-27] MEDS: LIPASE/PROTEASE/AMYLASE 1 CAP GT SCH ×3 (08:20→18:47)
[2016-05-27] MEDS: PANTOPRAZOLE SODIUM 40 MG/VIAL (PROTONIX) IVP SCH (08:21)
[2016-05-27] MEDS: LACTOBACILLUS RHAMNOSUS GG 1 CAP CAPSULE NG SCH ×2 (08:21→20:53)
[2016-05-27] MEDS: HEPARIN SODIUM,PORCINE 5000 UNITS/ML VIAL SUBCUT SCH ×2 (08:23→20:46)
[2016-05-27] MEDS ORDERED: *TPN PER PHARMACY XX PRN (10:15)
[2016-05-27] MEDS ORDERED: EPOETIN ALFA 10,000 UNITS/ML VIAL SUBCUT ONE (10:30)
[2016-05-27] MEDS: FLUCONAZOLE 200 mg/ NS 100 ML IV SCH (10:58)
[2016-05-27] MEDS: SOD FERRIC GLUC COMPLEX/SUC 125 MG in NS 100 ML IV SCH (13:56)
[2016-05-27] MEDS: LABETALOL 100 MG/ 20ML VIAL IVP PRN (20:53)
[2016-05-28] VITALS (28 sets, daily range): BP systolic 131–178; BP diastolic 73–99; PULSE 85–118; RESP 17–31; TEMP 98.4–99.9; O2SAT 96–100
[2016-05-28] MEDS: VALPROATE SODIUM 500 MG in D5W 100 ML IV SCH ×4 (03:12→20:06)
[2016-05-28] MEDS: MORPHINE 2 MG/ML INJ. SYRINGE IVP PRN (03:12)
[2016-05-28] MEDS: OCTREOTIDE ACETATE 100 MCG/ML AMP SUBCUT SCH (06:13)
[2016-05-28] MEDS: PIPERACILLIN/TAZO 2.25G/DEX-IS 50 ML IV SCH ×4 (06:13→23:14)
[2016-05-28] MEDS: [UNRECOGNIZED DRUG - OTHER] IV SCH ×16 (06:26→20:09)
[2016-05-28] MEDS: SODIUM ACETATE IV SCH ×16 (06:26→20:09)
[2016-05-28] MEDS: TPN CENTRAL IV SCH ×16 (06:26→20:09)
[2016-05-28] MEDS: CALCIUM GLUCONATE IV SCH ×16 (06:26→20:09)
[2016-05-28 07:00] LABS: BASOPHILS % (AUTO) 0.1 % (0.0-2.0); EOSINOPHILS # (AUTO) 0.2 K/uL (0.0-0.4); EOSINOPHILS % (AUTO) 1.6 % (0.0-4.0); HEMOGLOBIN 7.7 g/dL (14.0-18.0); LYMPHOCYTES # (AUTO) 1.1 K/uL (1.0-5.5); LYMPHOCYTES % (AUTO) 10.6 % (20.5-51.5); MEAN CORPUSCULAR HEMOGLOBIN 27 pg (27-31); MEAN CORPUSCULAR HGB CONC 33 % (32-36); MEAN CORPUSCULAR VOLUME 80 fL (79.0-98.0); MONOCYTES # (AUTO) 1.7 K/uL (0.0-1.0); MONOCYTES % (AUTO) 16.5 % (1.7-9.3); NEUTROPHILS # (AUTO) 7.6 K/uL (1.8-7.7); NEUTROPHILS % (AUTO) 71.2 % (40.0-70.0); PLATELET COUNT (AUTO) 385 K/uL (130-430); RED BLOOD CELL COUNT(AUTO) 2.87 MIL/uL (4.2-6.2); RED CELL DISTRIBUTION WIDTH 14.5 % (9.0-15.0); WHITE BLOOD COUNT (AUTO) 10.6 K/uL (4.8-10.8)
[2016-05-28 07:17] LABS: ALBUMIN 1.5 g/dL (3.4-4.8); CALCIUM 7.2 mg/dL (8.4-11.0); PHOSPHORUS 6.4 mg/dL (2.7-4.5); TOTAL BILIRUBIN 0.3 mg/dL (0.0-1.0); TOTAL PROTEIN, SERUM 6.6 g/dL (6.4-8.3)
[2016-05-28 07:29] LABS: CREATININE 8.92 mg/dL (0.55-1.30)
[2016-05-28] MEDS ORDERED: VALPROATE SODIUM 100 MG/ML VIAL (DEPACON) IV ONE (08:21)
[2016-05-28] MEDS: LIPASE/PROTEASE/AMYLASE 1 CAP GT SCH ×3 (08:32→17:01)
[2016-05-28] MEDS: PANTOPRAZOLE SODIUM 40 MG/VIAL (PROTONIX) IVP SCH (08:33)
[2016-05-28] MEDS: HEPARIN SODIUM,PORCINE 5000 UNITS/ML VIAL SUBCUT SCH ×2 (08:34→20:09)
[2016-05-28] MEDS: LACTOBACILLUS RHAMNOSUS GG 1 CAP CAPSULE NG SCH ×2 (08:34→20:06)
[2016-05-28] MEDS ORDERED: FAMOTIDINE PF 20 MG/2 ML VIAL IVP SCH (10:45)
[2016-05-28] MEDS: FLUCONAZOLE 200 mg/ NS 100 ML IV SCH (11:09)
[2016-05-28] MEDS: INSULIN REGULAR, HUMAN 100 UNITS/ML, 10 ML VIAL (novoLIN R) SUBCUT PRN (11:26)
[2016-05-28] MEDS: ACETAMINOPHEN 650 MG/20.3 ML UDC GT PRN (12:35)
[2016-05-28] MEDS: SOD FERRIC GLUC COMPLEX/SUC 125 MG in NS 100 ML IV SCH (12:41)
[2016-05-28] MEDS: EPOETIN ALFA 10,000 UNITS/ML VIAL SUBCUT SCH (17:01)
[2016-05-28] MEDS: LABETALOL 100 MG/ 20ML VIAL IVP PRN (18:37)
[2016-05-28] MEDS: FAMOTIDINE 20 MG TABLET GT SCH (20:06)
[2016-05-28] MEDS ORDERED: ALTEPLASE 2 MG VIAL MC ONE ×2 (21:10→21:15)
[2016-05-29] VITALS (34 sets, daily range): BP systolic 128–173; BP diastolic 71–95; PULSE 79–113; RESP 16–31; TEMP 99.1–100.1; O2SAT 96–100
[2016-05-29] MEDS: VALPROATE SODIUM 500 MG in D5W 100 ML IV SCH ×4 (02:00→20:22)
[2016-05-29] MEDS: ACETAMINOPHEN 650 MG/20.3 ML UDC GT PRN ×4 (03:13→18:05)
[2016-05-29] MEDS: PIPERACILLIN/TAZO 2.25G/DEX-IS 50 ML IV SCH ×4 (05:24→23:27)
[2016-05-29 07:11] LABS: ALBUMIN 1.7 g/dL (3.4-4.8); CALCIUM 7.8 mg/dL (8.4-11.0); POTASSIUM 3.6 mmol/L (3.5-5.1); TOTAL BILIRUBIN 0.3 mg/dL (0.0-1.0); TOTAL PROTEIN, SERUM 7.1 g/dL (6.4-8.3)
[2016-05-29 07:51] LABS: CREATININE 8.01 mg/dL (0.55-1.30)
[2016-05-29 08:49] LABS: IRON (SERUM) 79 mcg/dL (59-158); TOTAL IRON BIND. CAPACITY 183 ug/dL (250-450)
[2016-05-29 09:16] LABS: BASOPHILS # (AUTO) 0.1 K/uL (0.0-0.2); BASOPHILS % (AUTO) 0.5 % (0.0-2.0); EOSINOPHILS # (AUTO) 0.1 K/uL (0.0-0.4); EOSINOPHILS % (AUTO) 1.2 % (0.0-4.0); HEMATOCRIT 24.8 % (36-54); HEMOGLOBIN 8.2 g/dL (14.0-18.0); LYMPHOCYTES # (AUTO) 1.2 K/uL (1.0-5.5); LYMPHOCYTES % (AUTO) 9.5 % (20.5-51.5); MEAN CORPUSCULAR HEMOGLOBIN 26 pg (27-31); MEAN CORPUSCULAR HGB CONC 33 % (32-36); MEAN CORPUSCULAR VOLUME 80 fL (79.0-98.0); MONOCYTES # (AUTO) 2.2 K/uL (0.0-1.0); NEUTROPHILS # (AUTO) 8.6 K/uL (1.8-7.7); NEUTROPHILS % (AUTO) 70.8 % (40.0-70.0); PLATELET COUNT (AUTO) 437 K/uL (130-430); RED BLOOD CELL COUNT(AUTO) 3.09 MIL/uL (4.2-6.2); RED CELL DISTRIBUTION WIDTH 14.6 % (9.0-15.0); WHITE BLOOD COUNT (AUTO) 12.3 K/uL (4.8-10.8)
[2016-05-29] MEDS: LACTOBACILLUS RHAMNOSUS GG 1 CAP CAPSULE NG SCH ×2 (09:20→20:25)
[2016-05-29] MEDS: LIPASE/PROTEASE/AMYLASE 1 CAP GT SCH ×3 (09:20→18:04)
[2016-05-29] MEDS: FAMOTIDINE 20 MG TABLET GT SCH ×2 (09:20→20:25)
[2016-05-29] MEDS: CALCIUM GLUCONATE IV SCH ×16 (09:23→22:48)
[2016-05-29] MEDS: TPN CENTRAL IV SCH ×16 (09:23→22:48)
[2016-05-29] MEDS: SODIUM ACETATE IV SCH ×16 (09:23→22:48)
[2016-05-29] MEDS: [UNRECOGNIZED DRUG - OTHER] IV SCH ×16 (09:23→22:48)
[2016-05-29] MEDS: HEPARIN SODIUM,PORCINE 5000 UNITS/ML VIAL SUBCUT SCH ×2 (09:23→20:27)
[2016-05-29] MEDS: FLUCONAZOLE 200 mg/ NS 100 ML IV SCH (10:14)
[2016-05-29] MEDS: LABETALOL 100 MG/ 20ML VIAL IVP PRN (10:15)
[2016-05-29] MEDS: SOD FERRIC GLUC COMPLEX/SUC 125 MG in NS 100 ML IV SCH (13:12)
[2016-05-29] MEDS: VERAPAMIL HCL 80 MG TABLET PO SCH ×2 (13:12→21:59)
[2016-05-30] VITALS (35 sets, daily range): BP systolic 124–165; BP diastolic 71–98; PULSE 87–118; RESP 16–30; TEMP 98.6–101.2; O2SAT 98–100
[2016-05-30] MEDS: ACETAMINOPHEN 650 MG/20.3 ML UDC GT PRN ×5 (00:06→23:56)
[2016-05-30] MEDS: VALPROATE SODIUM 500 MG in D5W 100 ML IV SCH ×4 (01:39→20:07)
[2016-05-30] MEDS: LABETALOL 100 MG/ 20ML VIAL IVP PRN (03:34)
[2016-05-30] MEDS: VERAPAMIL HCL 80 MG TABLET PO SCH ×3 (05:23→22:58)
[2016-05-30] MEDS: PIPERACILLIN/TAZO 2.25G/DEX-IS 50 ML IV SCH ×3 (05:24→18:17)
[2016-05-30 08:12] LABS: ALBUMIN 1.7 g/dL (3.4-4.8); POTASSIUM 3.2 mmol/L (3.5-5.1); TOTAL BILIRUBIN 0.2 mg/dL (0.0-1.0); TOTAL PROTEIN, SERUM 7.2 g/dL (6.4-8.3)
[2016-05-30] MEDS: LACTOBACILLUS RHAMNOSUS GG 1 CAP CAPSULE NG SCH ×2 (08:12→22:40)
[2016-05-30] MEDS: LIPASE/PROTEASE/AMYLASE 1 CAP GT SCH ×3 (08:12→18:17)
[2016-05-30] MEDS: FAMOTIDINE 20 MG TABLET GT SCH ×2 (08:12→22:57)
[2016-05-30] MEDS: HEPARIN SODIUM,PORCINE 5000 UNITS/ML VIAL SUBCUT SCH ×2 (08:13→23:00)
[2016-05-30 08:20] LABS: CREATININE 8.29 mg/dL (0.55-1.30)
[2016-05-30 08:21] LABS: WHITE BLOOD COUNT (AUTO) 12.4 K/uL (4.8-10.8)
[2016-05-30 08:23] LABS: HEMATOCRIT 22.5 % (36-54); MEAN CORPUSCULAR HEMOGLOBIN 27 pg (27-31); MEAN CORPUSCULAR HGB CONC 34 % (32-36); MEAN CORPUSCULAR VOLUME 79 fL (79.0-98.0); PLATELET COUNT (AUTO) 450 K/uL (130-430); RED CELL DISTRIBUTION WIDTH 15.2 % (9.0-15.0)
[2016-05-30 08:43] LABS: ATYPICAL LYMPHOCYTES % 0 % (0-0); BAND % (MANUAL) 0 % (0-6); BASOPHILS % (MANUAL) 0 % (0-2); EOSINOPHILS % (MANUAL) 0 % (0-7); LYMPHOCYTES % (MANUAL) 6 % (20-46); MONOCYTES % (MANUAL) 19 % (0-11)
[2016-05-30] MEDS ORDERED: POTASSIUM CHLORIDE 10 MEQ TAB.PRT.SR GT ONE (08:45)
[2016-05-30 08:52] LABS: RED BLOOD CELL COUNT(AUTO) 2.85 MIL/uL (4.2-6.2)
[2016-05-30 08:53] LABS: HEMOGLOBIN 7.7 g/dL (14.0-18.0)
[2016-05-30] MEDS: FLUCONAZOLE 200 mg/ NS 100 ML IV SCH (09:50)
[2016-05-30] MEDS: SOD FERRIC GLUC COMPLEX/SUC 125 MG in NS 100 ML IV SCH (12:28)
[2016-05-30] MEDS: CALCIUM GLUCONATE IV SCH ×8 (12:29)
[2016-05-30] MEDS: [UNRECOGNIZED DRUG - OTHER] IV SCH ×8 (12:29)
[2016-05-30] MEDS: TPN CENTRAL IV SCH ×8 (12:29)
[2016-05-30] MEDS: SODIUM ACETATE IV SCH ×8 (12:29)
[2016-05-30] MEDS: IPRATROPIUM BROM 0.5 MG/2.5 ML VIAL.NEB (ATROVENT) INH SCH ×3 (13:25→23:59)
[2016-05-30] MEDS ORDERED: HEPARIN SODIUM,PORCINE 5000 UNITS/ML VIAL IVP ONE (14:15)
[2016-05-30] MEDS ORDERED: HEPARIN SODIUM,PORCINE 5000 UNITS/ML VIAL ONE ×2 (14:17→21:03)
[2016-05-30] MEDS: EPOETIN ALFA 10,000 UNITS/ML VIAL SUBCUT SCH (16:57)
[2016-05-30] MEDS: MORPHINE 2 MG/ML INJ. SYRINGE IVP PRN (21:22)
[2016-05-30] MEDS ORDERED: LACTOBACILLUS RHAMNOSUS GG 1 CAP CAPSULE ONE (22:49)
[2016-05-30] MEDS ORDERED: [UNRECOGNIZED DRUG - OTHER] IV SCH ×9 (23:30)
[2016-05-30] MEDS ORDERED: POTASSIUM CHLORIDE IV SCH ×9 (23:30)
[2016-05-30] MEDS ORDERED: SODIUM ACETATE IV SCH ×9 (23:30)
[2016-05-30] MEDS ORDERED: TPN CENTRAL IV SCH ×9 (23:30)
[2016-05-31] VITALS (36 sets, daily range): BP systolic 117–169; BP diastolic 65–100; PULSE 76–116; RESP 13–31; TEMP 97.6–100.6; O2SAT 98–100
[2016-05-31] MEDS: LABETALOL 100 MG/ 20ML VIAL IVP PRN ×2 (00:18→18:49)
[2016-05-31] MEDS: PIPERACILLIN/TAZO 2.25G/DEX-IS 50 ML IV SCH ×5 (00:21→23:19)
[2016-05-31] MEDS: VALPROATE SODIUM 500 MG in D5W 100 ML IV SCH ×4 (01:25→20:24)
[2016-05-31] MEDS: MORPHINE 2 MG/ML INJ. SYRINGE IVP PRN ×4 (01:26→21:42)
[2016-05-31] MEDS: VERAPAMIL HCL 80 MG TABLET PO SCH ×3 (05:11→21:41)
[2016-05-31] MEDS: ACETAMINOPHEN 650 MG/20.3 ML UDC GT PRN ×3 (06:40→21:43)
[2016-05-31 06:53] LABS: HEMOGLOBIN 7.3 g/dL (14.0-18.0); MEAN CORPUSCULAR HEMOGLOBIN 27 pg (27-31); MEAN CORPUSCULAR HGB CONC 33 % (32-36); MEAN CORPUSCULAR VOLUME 81 fL (79.0-98.0); PLATELET COUNT (AUTO) 397 K/uL (130-430); RED BLOOD CELL COUNT(AUTO) 2.71 MIL/uL (4.2-6.2); RED CELL DISTRIBUTION WIDTH 14.9 % (9.0-15.0); WHITE BLOOD COUNT (AUTO) 11.4 K/uL (4.8-10.8)
[2016-05-31 07:02] LABS: CALCIUM 8.1 mg/dL (8.4-11.0); CREATININE 4.66 mg/dL (0.55-1.30); PHOSPHORUS 2.8 mg/dL (2.7-4.5); POTASSIUM 3.6 mmol/L (3.5-5.1)
[2016-05-31 08:19] LABS: BAND % (MANUAL) 8 % (0-6); BASOPHILS % (MANUAL) 0 % (0-2); EOSINOPHILS % (MANUAL) 0 % (0-7); LYMPHOCYTES % (MANUAL) 17 % (20-46); METAMYELOCYTES % 7 % (0-0); MONOCYTES % (MANUAL) 21 % (0-11)
[2016-05-31] MEDS: FAMOTIDINE 20 MG TABLET GT SCH ×2 (08:48→20:22)
[2016-05-31] MEDS: LIPASE/PROTEASE/AMYLASE 1 CAP GT SCH ×3 (08:48→18:17)
[2016-05-31] MEDS: HEPARIN SODIUM,PORCINE 5000 UNITS/ML VIAL SUBCUT SCH ×2 (08:51→20:29)
[2016-05-31] MEDS: LACTOBACILLUS RHAMNOSUS GG 1 CAP CAPSULE NG SCH ×2 (09:16→20:24)
[2016-05-31] MEDS: FLUCONAZOLE 200 mg/ NS 100 ML IV SCH (11:09)
[2016-05-31] MEDS ORDERED: ALTEPLASE 2 MG VIAL MC ONE (13:15)
[2016-05-31] MEDS: SIMETHICONE 80 MG TAB.CHEW GT SCH ×2 (13:56→20:22)
[2016-05-31] MEDS: SOD FERRIC GLUC COMPLEX/SUC 125 MG in NS 100 ML IV SCH (13:57)
[2016-05-31] MEDS: POTASSIUM CHLORIDE IV SCH ×10 (15:31)
[2016-05-31] MEDS: TPN CENTRAL IV SCH ×10 (15:31)
[2016-05-31] MEDS: SODIUM ACETATE IV SCH ×10 (15:31)
[2016-05-31] MEDS: K PHOS IV SCH ×10 (15:31)
[2016-05-31] MEDS: [UNRECOGNIZED DRUG - OTHER] IV SCH ×10 (15:31)
[2016-05-31] MEDS: IPRATROPIUM BROM 0.5 MG/2.5 ML VIAL.NEB (ATROVENT) INH SCH ×3 (16:00→19:45)
[2016-06-01] VITALS (35 sets, daily range): BP systolic 116–180; BP diastolic 65–110; PULSE 82–115; RESP 12–32; TEMP 98.9–101; O2SAT 98–100
[2016-06-01] MEDS: IPRATROPIUM BROM 0.5 MG/2.5 ML VIAL.NEB (ATROVENT) INH SCH ×2 (00:58→20:31)
[2016-06-01] MEDS: VALPROATE SODIUM 500 MG in D5W 100 ML IV SCH ×4 (03:14→20:09)
[2016-06-01] MEDS: INSULIN REGULAR, HUMAN 100 UNITS/ML, 10 ML VIAL (novoLIN R) SUBCUT PRN ×2 (03:15→07:02)
[2016-06-01] MEDS: TPN CENTRAL IV SCH ×20 (03:40→18:08)
[2016-06-01] MEDS: [UNRECOGNIZED DRUG - OTHER] IV SCH ×20 (03:40→18:08)
[2016-06-01] MEDS: K PHOS IV SCH ×20 (03:40→18:08)
[2016-06-01] MEDS: POTASSIUM CHLORIDE IV SCH ×20 (03:40→18:08)
[2016-06-01] MEDS: SODIUM ACETATE IV SCH ×20 (03:40→18:08)
[2016-06-01] MEDS: LABETALOL 100 MG/ 20ML VIAL IVP PRN ×3 (04:15→12:53)
[2016-06-01] MEDS: VERAPAMIL HCL 80 MG TABLET PO SCH ×3 (05:24→21:08)
[2016-06-01] MEDS: PIPERACILLIN/TAZO 2.25G/DEX-IS 50 ML IV SCH ×3 (05:25→18:07)
[2016-06-01 06:23] LABS: HEMATOCRIT 29.2 % (36-54); HEMOGLOBIN 9.8 g/dL (14.0-18.0); MEAN CORPUSCULAR HEMOGLOBIN 28 pg (27-31); MEAN CORPUSCULAR HGB CONC 34 % (32-36); MEAN CORPUSCULAR VOLUME 84 fL (79.0-98.0); RED CELL DISTRIBUTION WIDTH 15.1 % (9.0-15.0); WHITE BLOOD COUNT (AUTO) 12.4 K/uL (4.8-10.8)
[2016-06-01 06:31] LABS: ALBUMIN 1.7 g/dL (3.4-4.8); CALCIUM 8.2 mg/dL (8.4-11.0); CREATININE 5.32 mg/dL (0.55-1.30); PHOSPHORUS 3.6 mg/dL (2.7-4.5); POTASSIUM 3.6 mmol/L (3.5-5.1); TOTAL BILIRUBIN 0.3 mg/dL (0.0-1.0); TOTAL PROTEIN, SERUM 7.6 g/dL (6.4-8.3)
[2016-06-01 06:42] LABS: PLATELET COUNT (AUTO) 398 K/uL (130-430)
[2016-06-01 07:49] LABS: BAND % (MANUAL) 12 % (0-6); BASOPHILS % (MANUAL) 0 % (0-2); EOSINOPHILS % (MANUAL) 1 % (0-7); LYMPHOCYTES % (MANUAL) 22 % (20-46); METAMYELOCYTES % 4 % (0-0); MONOCYTES % (MANUAL) 19 % (0-11)
[2016-06-01] MEDS: FAMOTIDINE 20 MG TABLET GT SCH ×2 (08:14→21:06)
[2016-06-01] MEDS: LIPASE/PROTEASE/AMYLASE 1 CAP GT SCH ×3 (08:14→18:06)
[2016-06-01] MEDS: SIMETHICONE 80 MG TAB.CHEW GT SCH ×3 (08:14→21:06)
[2016-06-01] MEDS: HEPARIN SODIUM,PORCINE 5000 UNITS/ML VIAL SUBCUT SCH ×2 (08:15→21:07)
[2016-06-01] MEDS: MORPHINE 2 MG/ML INJ. SYRINGE IVP PRN ×2 (08:38→13:27)
[2016-06-01] MEDS: ACETAMINOPHEN 650 MG/20.3 ML UDC GT PRN ×2 (08:38→15:37)
[2016-06-01] MEDS: LACTOBACILLUS RHAMNOSUS GG 1 CAP CAPSULE NG SCH ×2 (09:15→21:06)
[2016-06-01] MEDS ORDERED: ALTEPLASE 2 MG VIAL MC ONE (11:45)
[2016-06-01] MEDS: FLUCONAZOLE 200 mg/ NS 100 ML IV SCH (11:55)
[2016-06-01] MEDS: SOD FERRIC GLUC COMPLEX/SUC 125 MG in NS 100 ML IV SCH (13:05)
[2016-06-01] MEDS ORDERED: LISI40TA4 PO (13:09)
[2016-06-01] MEDS ORDERED: ROSU10TA PO (13:11)
[2016-06-01] MEDS: metroNIDAZOLE 500 mg/NS 100 ML IV SCH ×2 (13:39→21:09)
[2016-06-01] MEDS: cloNIDine HCL 0.1 MG TABLET PO PRN ×2 (15:13→19:48)
[2016-06-01] MEDS ORDERED: HEPARIN SODIUM,PORCINE 5000 UNITS/ML VIAL IV ONE (15:15)
[2016-06-01] MEDS ORDERED: HEPARIN SODIUM,PORCINE 5000 UNITS/ML VIAL ONE (15:40)
[2016-06-01] MEDS: EPOETIN ALFA 10,000 UNITS/ML VIAL SUBCUT SCH (18:07)
[2016-06-02] VITALS (36 sets, daily range): BP systolic 97–170; BP diastolic 51–105; PULSE 71–110; RESP 13–24; TEMP 98.4–100.5; O2SAT 20–100
[2016-06-02] MEDS: PIPERACILLIN/TAZO 2.25G/DEX-IS 50 ML IV SCH ×4 (00:36→17:44)
[2016-06-02] MEDS: IPRATROPIUM BROM 0.5 MG/2.5 ML VIAL.NEB (ATROVENT) INH SCH ×5 (01:09→20:01)
[2016-06-02] MEDS: ACETAMINOPHEN 650 MG/20.3 ML UDC GT PRN ×3 (03:00→17:45)
[2016-06-02] MEDS: VALPROATE SODIUM 500 MG in D5W 100 ML IV SCH ×4 (03:25→19:37)
[2016-06-02] MEDS: VERAPAMIL HCL 80 MG TABLET PO SCH ×3 (05:36→21:14)
[2016-06-02] MEDS: TPN CENTRAL IV SCH ×20 (05:39→18:06)
[2016-06-02] MEDS: [UNRECOGNIZED DRUG - OTHER] IV SCH ×20 (05:39→18:06)
[2016-06-02] MEDS: SODIUM ACETATE IV SCH ×20 (05:39→18:06)
[2016-06-02] MEDS: K PHOS IV SCH ×20 (05:39→18:06)
[2016-06-02] MEDS: POTASSIUM CHLORIDE IV SCH ×20 (05:39→18:06)
[2016-06-02] MEDS: metroNIDAZOLE 500 mg/NS 100 ML IV SCH ×3 (05:40→21:16)
[2016-06-02 07:15] LABS: ALBUMIN 1.6 g/dL (3.4-4.8); BILIRUBIN,DIRECT 0.1 mg/dL (0.0-0.3); CALCIUM 8.9 mg/dL (8.4-11.0); CREATININE 4.45 mg/dL (0.55-1.30); PHOSPHORUS 3.6 mg/dL (2.7-4.5); POTASSIUM 3.4 mmol/L (3.5-5.1); TOTAL BILIRUBIN 0.3 mg/dL (0.0-1.0); TOTAL PROTEIN, SERUM 7.3 g/dL (6.4-8.3)
[2016-06-02] MEDS: LIPASE/PROTEASE/AMYLASE 1 CAP GT SCH ×3 (08:32→17:45)
[2016-06-02] MEDS: SIMETHICONE 80 MG TAB.CHEW GT SCH ×3 (08:32→21:15)
[2016-06-02] MEDS: LACTOBACILLUS RHAMNOSUS GG 1 CAP CAPSULE NG SCH ×2 (08:33→21:15)
[2016-06-02] MEDS: FAMOTIDINE 20 MG TABLET GT SCH ×2 (08:33→21:15)
[2016-06-02] MEDS: HEPARIN SODIUM,PORCINE 5000 UNITS/ML VIAL SUBCUT SCH ×2 (08:35→21:16)
[2016-06-02] MEDS: cloNIDine HCL 0.1 MG TABLET PO PRN (11:15)
[2016-06-02] MEDS: DIPHENOXYLATE HCL/ATROP SULF 2.5 MG TAB NG PRN (11:16)
[2016-06-02] MEDS: FLUCONAZOLE 200 mg/ NS 100 ML IV SCH (11:16)
[2016-06-02] MEDS: LABETALOL 100 MG/ 20ML VIAL IVP PRN (13:02)
[2016-06-02] MEDS: SOD FERRIC GLUC COMPLEX/SUC 125 MG in NS 100 ML IV SCH (13:58)
[2016-06-02] MEDS: MORPHINE 2 MG/ML INJ. SYRINGE IVP PRN (22:13)
[2016-06-03] VITALS (27 sets, daily range): BP systolic 134–174; BP diastolic 70–109; PULSE 77–113; RESP 14–28; TEMP 98.9–100; O2SAT 98–100
[2016-06-03] MEDS: IPRATROPIUM BROM 0.5 MG/2.5 ML VIAL.NEB (ATROVENT) INH SCH ×4 (01:17→19:41)
[2016-06-03] MEDS: LABETALOL 100 MG/ 20ML VIAL IVP PRN ×2 (01:19→23:47)
[2016-06-03] MEDS: VALPROATE SODIUM 500 MG in D5W 100 ML IV SCH ×4 (01:20→19:36)
[2016-06-03] MEDS: cloNIDine HCL 0.1 MG TABLET PO PRN ×3 (02:13→17:11)
[2016-06-03] MEDS: VERAPAMIL HCL 80 MG TABLET PO SCH ×3 (05:22→21:15)
[2016-06-03] MEDS: metroNIDAZOLE 500 mg/NS 100 ML IV SCH ×3 (05:23→21:22)
[2016-06-03 07:30] LABS: HEMATOCRIT 27.9 % (36-54); HEMOGLOBIN 9.4 g/dL (14.0-18.0); MEAN CORPUSCULAR HEMOGLOBIN 28 pg (27-31); MEAN CORPUSCULAR HGB CONC 34 % (32-36); MEAN CORPUSCULAR VOLUME 84 fL (79.0-98.0); PLATELET COUNT (AUTO) 314 K/uL (130-430); RED BLOOD CELL COUNT(AUTO) 3.31 MIL/uL (4.2-6.2); RED CELL DISTRIBUTION WIDTH 15.8 % (9.0-15.0)
[2016-06-03 08:09] LABS: WHITE BLOOD COUNT (AUTO) 13.1 K/uL (4.8-10.8)
[2016-06-03] MEDS: LIPASE/PROTEASE/AMYLASE 1 CAP GT SCH ×3 (08:16→17:11)
[2016-06-03] MEDS: LACTOBACILLUS RHAMNOSUS GG 1 CAP CAPSULE NG SCH ×2 (08:16→21:15)
[2016-06-03] MEDS: SIMETHICONE 80 MG TAB.CHEW GT SCH ×3 (08:17→21:15)
[2016-06-03] MEDS: FAMOTIDINE 20 MG TABLET GT SCH ×2 (08:17→21:15)
[2016-06-03] MEDS: DIPHENOXYLATE HCL/ATROP SULF 2.5 MG TAB NG PRN (08:17)
[2016-06-03] MEDS: HEPARIN SODIUM,PORCINE 5000 UNITS/ML VIAL SUBCUT SCH ×2 (08:21→21:17)
[2016-06-03] MEDS ORDERED: FAMOTIDINE 20 MG TABLET ONE (08:31)
[2016-06-03 08:57] LABS: ATYPICAL LYMPHOCYTES % 4 % (0-0); BAND % (MANUAL) 7 % (0-6); BASOPHILS % (MANUAL) 0 % (0-2); EOSINOPHILS % (MANUAL) 3 % (0-7); LYMPHOCYTES % (MANUAL) 15 % (20-46); MONOCYTES % (MANUAL) 27 % (0-11)
[2016-06-03 09:00] LABS: PROMYELOCYTES % 2 % (0-0)
[2016-06-03] MEDS: K PHOS IV SCH ×20 (09:04→22:16)
[2016-06-03] MEDS: POTASSIUM CHLORIDE IV SCH ×20 (09:04→22:16)
[2016-06-03] MEDS: SODIUM ACETATE IV SCH ×20 (09:04→22:16)
[2016-06-03] MEDS: TPN CENTRAL IV SCH ×20 (09:04→22:16)
[2016-06-03] MEDS: [UNRECOGNIZED DRUG - OTHER] IV SCH ×20 (09:04→22:16)
[2016-06-03] MEDS ORDERED: MULTIVITAMINS,THERAPEUTIC 5 ML UDC GT ONE (11:15)
[2016-06-03] MEDS: ACETAMINOPHEN 650 MG/20.3 ML UDC GT PRN (11:21)
[2016-06-03] MEDS: FLUCONAZOLE 200 mg/ NS 100 ML IV SCH (11:22)
[2016-06-03] MEDS: 0.45% NACL 1,000 ML IV SCH ×2 (11:31→22:13)
[2016-06-04] VITALS (34 sets, daily range): BP systolic 135–180; BP diastolic 70–119; PULSE 85–109; RESP 13–33; TEMP 97.7–99.5; O2SAT 96–100
[2016-06-04] MEDS: IPRATROPIUM BROM 0.5 MG/2.5 ML VIAL.NEB (ATROVENT) INH SCH ×4 (01:23→20:05)
[2016-06-04] MEDS: VALPROATE SODIUM 500 MG in D5W 100 ML IV SCH ×4 (01:25→20:18)
[2016-06-04] MEDS: MORPHINE 2 MG/ML INJ. SYRINGE IVP PRN ×2 (01:27→23:07)
[2016-06-04] MEDS: cloNIDine HCL 0.1 MG TABLET PO PRN ×2 (03:21→08:19)
[2016-06-04] MEDS: LABETALOL 100 MG/ 20ML VIAL IVP PRN ×2 (04:18→10:57)
[2016-06-04] MEDS: metroNIDAZOLE 500 mg/NS 100 ML IV SCH ×3 (05:12→22:18)
[2016-06-04] MEDS: VERAPAMIL HCL 80 MG TABLET PO SCH (05:58)
[2016-06-04 06:21] LABS: HEMATOCRIT 28.6 % (36-54); HEMOGLOBIN 9.6 g/dL (14.0-18.0); MEAN CORPUSCULAR HEMOGLOBIN 28 pg (27-31); MEAN CORPUSCULAR HGB CONC 34 % (32-36); MEAN CORPUSCULAR VOLUME 84 fL (79.0-98.0); PLATELET COUNT (AUTO) 299 K/uL (130-430); RED BLOOD CELL COUNT(AUTO) 3.41 MIL/uL (4.2-6.2); RED CELL DISTRIBUTION WIDTH 15.9 % (9.0-15.0)
[2016-06-04 06:31] LABS: CALCIUM 8.7 mg/dL (8.4-11.0); CREATININE 4.8 mg/dL (0.55-1.30)
[2016-06-04 07:14] LABS: WHITE BLOOD COUNT (AUTO) 13.6 K/uL (4.8-10.8)
[2016-06-04] MEDS: MULTIVITAMINS,THERAPEUTIC 5 ML UDC GT SCH (08:17)
[2016-06-04] MEDS: FAMOTIDINE 20 MG TABLET GT SCH ×2 (08:18→20:21)
[2016-06-04] MEDS: LACTOBACILLUS RHAMNOSUS GG 1 CAP CAPSULE NG SCH ×2 (08:18→20:21)
[2016-06-04] MEDS: SIMETHICONE 80 MG TAB.CHEW GT SCH (08:18)
[2016-06-04] MEDS: LIPASE/PROTEASE/AMYLASE 1 CAP GT SCH ×3 (08:18→17:45)
[2016-06-04] MEDS: HEPARIN SODIUM,PORCINE 5000 UNITS/ML VIAL SUBCUT SCH ×2 (08:21→20:23)
[2016-06-04 08:56] LABS: ATYPICAL LYMPHOCYTES % 0 % (0-0); BAND % (MANUAL) 4 % (0-6); BASOPHILS % (MANUAL) 0 % (0-2); EOSINOPHILS % (MANUAL) 1 % (0-7); LYMPHOCYTES % (MANUAL) 11 % (20-46); MONOCYTES % (MANUAL) 25 % (0-11)
[2016-06-04 08:57] LABS: PROMYELOCYTES % 2 % (0-0)
[2016-06-04] MEDS: DILTIAZEM HCL 60 MG TABLET PO SCH ×2 (14:06→22:19)
[2016-06-04] MEDS: 0.45% NACL 1,000 ML IV SCH (14:07)
[2016-06-04] MEDS: EPOETIN ALFA 10,000 UNITS/ML VIAL SUBCUT SCH (17:46)
[2016-06-05] VITALS (34 sets, daily range): BP systolic 141–182; BP diastolic 83–107; PULSE 83–107; RESP 13–35; TEMP 98–99.2; O2SAT 98–100
[2016-06-05] MEDS: IPRATROPIUM BROM 0.5 MG/2.5 ML VIAL.NEB (ATROVENT) INH SCH ×4 (00:57→19:34)
[2016-06-05] MEDS: cloNIDine HCL 0.1 MG TABLET PO PRN ×3 (01:44→22:58)
[2016-06-05] MEDS: VALPROATE SODIUM 500 MG in D5W 100 ML IV SCH ×4 (01:46→19:18)
[2016-06-05] MEDS: 0.45% NACL 1,000 ML IV SCH ×4 (01:47→23:19)
[2016-06-05] MEDS: SODIUM ACETATE IV SCH ×20 (01:50→15:28)
[2016-06-05] MEDS: K PHOS IV SCH ×20 (01:50→15:28)
[2016-06-05] MEDS: [UNRECOGNIZED DRUG - OTHER] IV SCH ×20 (01:50→15:28)
[2016-06-05] MEDS: TPN CENTRAL IV SCH ×20 (01:50→15:28)
[2016-06-05] MEDS: POTASSIUM CHLORIDE IV SCH ×20 (01:50→15:28)
[2016-06-05] MEDS: LABETALOL 100 MG/ 20ML VIAL IVP PRN ×4 (03:31→19:23)
[2016-06-05] MEDS: DILTIAZEM HCL 60 MG TABLET PO SCH ×3 (05:36→21:25)
[2016-06-05] MEDS: metroNIDAZOLE 500 mg/NS 100 ML IV SCH ×3 (05:38→21:25)
[2016-06-05 07:18] LABS: ALBUMIN 1.8 g/dL (3.4-4.8); CALCIUM 8.5 mg/dL (8.4-11.0); CREATININE 4.43 mg/dL (0.55-1.30); PHOSPHORUS 4.3 mg/dL (2.7-4.5); TOTAL BILIRUBIN 0.3 mg/dL (0.0-1.0); TOTAL PROTEIN, SERUM 7.4 g/dL (6.4-8.3)
[2016-06-05 07:26] LABS: POTASSIUM 2.8 mmol/L (3.5-5.1)
[2016-06-05] MEDS ORDERED: KCL 40 mEq in 100 mL (PREMIX) 100 ML IV ONE (07:45)
[2016-06-05] MEDS ORDERED: POTASSIUM CHLORIDE 20 MEQ/PKT PACKET PO ONE (07:45)
[2016-06-05] MEDS: LACTOBACILLUS RHAMNOSUS GG 1 CAP CAPSULE NG SCH ×2 (08:12→21:24)
[2016-06-05] MEDS: LIPASE/PROTEASE/AMYLASE 1 CAP GT SCH ×3 (08:12→17:52)
[2016-06-05] MEDS: HEPARIN SODIUM,PORCINE 5000 UNITS/ML VIAL SUBCUT SCH ×2 (08:12→21:26)
[2016-06-05] MEDS: FAMOTIDINE 20 MG TABLET GT SCH ×2 (08:13→21:25)
[2016-06-05] MEDS: MULTIVITAMINS,THERAPEUTIC 5 ML UDC GT SCH (08:13)
[2016-06-05 13:48] LABS: CALCIUM 8.6 mg/dL (8.4-11.0); CREATININE 4.29 mg/dL (0.55-1.30); POTASSIUM 3.8 mmol/L (3.5-5.1)
[2016-06-05] MEDS: MORPHINE 2 MG/ML INJ. SYRINGE IVP PRN (22:20)
[2016-06-06] VITALS (31 sets, daily range): BP systolic 122–172; BP diastolic 74–117; PULSE 88–114; RESP 12–34; TEMP 98–99.5; O2SAT 95–100
[2016-06-06] MEDS: LABETALOL 100 MG/ 20ML VIAL IVP PRN ×2 (00:29→04:43)
[2016-06-06] MEDS: IPRATROPIUM BROM 0.5 MG/2.5 ML VIAL.NEB (ATROVENT) INH SCH ×4 (00:50→19:00)
[2016-06-06] MEDS: VALPROATE SODIUM 500 MG in D5W 100 ML IV SCH ×4 (02:31→21:16)
[2016-06-06] MEDS: K PHOS IV SCH ×10 (03:46)
[2016-06-06] MEDS: TPN CENTRAL IV SCH ×21 (03:46→16:46)
[2016-06-06] MEDS: POTASSIUM CHLORIDE IV SCH ×10 (03:46)
[2016-06-06] MEDS: SODIUM ACETATE IV SCH ×21 (03:46→16:46)
[2016-06-06] MEDS: [UNRECOGNIZED DRUG - OTHER] IV SCH ×10 (03:46)
[2016-06-06] MEDS: cloNIDine HCL 0.1 MG TABLET PO PRN ×2 (03:49→23:27)
[2016-06-06] MEDS: DILTIAZEM HCL 60 MG TABLET PO SCH ×3 (06:15→21:17)
[2016-06-06] MEDS: metroNIDAZOLE 500 mg/NS 100 ML IV SCH ×3 (06:16→21:40)
[2016-06-06 07:36] LABS: BASOPHILS # (AUTO) 0.1 K/uL (0.0-0.2); BASOPHILS % (AUTO) 0.6 % (0.0-2.0); EOSINOPHILS # (AUTO) 0.2 K/uL (0.0-0.4); EOSINOPHILS % (AUTO) 1.3 % (0.0-4.0); HEMATOCRIT 29.8 % (36-54); HEMOGLOBIN 10.1 g/dL (14.0-18.0); LYMPHOCYTES # (AUTO) 2.2 K/uL (1.0-5.5); LYMPHOCYTES % (AUTO) 13.9 % (20.5-51.5); MEAN CORPUSCULAR HEMOGLOBIN 29 pg (27-31); MEAN CORPUSCULAR HGB CONC 34 % (32-36); MEAN CORPUSCULAR VOLUME 84 fL (79.0-98.0); MONOCYTES # (AUTO) 2.7 K/uL (0.0-1.0); NEUTROPHILS # (AUTO) 10.5 K/uL (1.8-7.7); NEUTROPHILS % (AUTO) 67.2 % (40.0-70.0); PLATELET COUNT (AUTO) 198 K/uL (130-430); RED BLOOD CELL COUNT(AUTO) 3.54 MIL/uL (4.2-6.2); RED CELL DISTRIBUTION WIDTH 17.1 % (9.0-15.0)
[2016-06-06 08:01] LABS: CALCIUM 8.6 mg/dL (8.4-11.0); CREATININE 3.96 mg/dL (0.55-1.30); POTASSIUM 3.6 mmol/L (3.5-5.1)
[2016-06-06 08:07] LABS: WHITE BLOOD COUNT (AUTO) 15.7 K/uL (4.8-10.8)
[2016-06-06] MEDS: 0.45% NACL 1,000 ML IV SCH (08:34)
[2016-06-06] MEDS: MULTIVITAMINS,THERAPEUTIC 5 ML UDC GT SCH (09:09)
[2016-06-06] MEDS: LACTOBACILLUS RHAMNOSUS GG 1 CAP CAPSULE NG SCH ×2 (09:09→21:16)
[2016-06-06] MEDS: FAMOTIDINE 20 MG TABLET GT SCH ×2 (09:10→21:19)
[2016-06-06] MEDS: LIPASE/PROTEASE/AMYLASE 1 CAP GT SCH ×3 (09:10→18:42)
[2016-06-06] MEDS: HEPARIN SODIUM,PORCINE 5000 UNITS/ML VIAL SUBCUT SCH ×2 (09:11→21:19)
[2016-06-06] MEDS ORDERED: FLUCONAZOLE 200 mg/ NS 100 ML IV ONE (12:00)
[2016-06-06] MEDS: SODIUM CHLORIDE IV SCH ×11 (16:46)
[2016-06-06] MEDS: [UNRECOGNIZED DRUG - OTHER] IV SCH ×11 (16:46)
[2016-06-06] MEDS: EPOETIN ALFA 10,000 UNITS/ML VIAL SUBCUT SCH (18:44)
[2016-06-06] MEDS: MORPHINE 2 MG/ML INJ. SYRINGE IVP PRN (21:26)
[2016-06-07] VITALS (21 sets, daily range): BP systolic 121–176; BP diastolic 78–114; PULSE 94–118; RESP 14–33; TEMP 98–98.8; O2SAT 96–100
[2016-06-07] MEDS: IPRATROPIUM BROM 0.5 MG/2.5 ML VIAL.NEB (ATROVENT) INH SCH ×3 (00:59→20:17)
[2016-06-07] MEDS: MORPHINE 2 MG/ML INJ. SYRINGE IVP PRN (02:32)
[2016-06-07] MEDS: VALPROATE SODIUM 500 MG in D5W 100 ML IV SCH ×4 (02:33→22:20)
[2016-06-07] MEDS: LABETALOL 100 MG/ 20ML VIAL IVP PRN ×2 (04:31→18:32)
[2016-06-07] MEDS: DILTIAZEM HCL 60 MG TABLET PO SCH ×3 (05:38→22:21)
[2016-06-07] MEDS: metroNIDAZOLE 500 mg/NS 100 ML IV SCH ×3 (05:38→22:21)
[2016-06-07] MEDS: SODIUM CHLORIDE IV SCH ×22 (05:40→23:52)
[2016-06-07] MEDS: TPN CENTRAL IV SCH ×22 (05:40→23:52)
[2016-06-07] MEDS: [UNRECOGNIZED DRUG - OTHER] IV SCH ×22 (05:40→23:52)
[2016-06-07] MEDS: SODIUM ACETATE IV SCH ×22 (05:40→23:52)
[2016-06-07 07:18] LABS: HEMATOCRIT 32.4 % (36-54); HEMOGLOBIN 10.4 g/dL (14.0-18.0); MEAN CORPUSCULAR HEMOGLOBIN 27 pg (27-31); MEAN CORPUSCULAR HGB CONC 32 % (32-36); MEAN CORPUSCULAR VOLUME 84 fL (79.0-98.0); PLATELET COUNT (AUTO) 172 K/uL (130-430); RED BLOOD CELL COUNT(AUTO) 3.85 MIL/uL (4.2-6.2); RED CELL DISTRIBUTION WIDTH 17.8 % (9.0-15.0); WHITE BLOOD COUNT (AUTO) 16.9 K/uL (4.8-10.8)
[2016-06-07 07:38] LABS: CALCIUM 8.7 mg/dL (8.4-11.0); CREATININE 3.49 mg/dL (0.55-1.30); PHOSPHORUS 4.3 mg/dL (2.7-4.5); POTASSIUM 3.7 mmol/L (3.5-5.1)
[2016-06-07] MEDS: FAMOTIDINE 20 MG TABLET GT SCH ×2 (08:28→22:20)
[2016-06-07] MEDS: MULTIVITAMINS,THERAPEUTIC 5 ML UDC GT SCH (08:28)
[2016-06-07] MEDS: cloNIDine HCL 0.1 MG TABLET PO PRN (08:29)
[2016-06-07] MEDS: LACTOBACILLUS RHAMNOSUS GG 1 CAP CAPSULE NG SCH ×2 (08:29→22:20)
[2016-06-07] MEDS: LIPASE/PROTEASE/AMYLASE 1 CAP GT SCH ×3 (08:30→18:30)
[2016-06-07] MEDS: HEPARIN SODIUM,PORCINE 5000 UNITS/ML VIAL SUBCUT SCH ×2 (08:33→22:24)
[2016-06-07 10:31] LABS: ATYPICAL LYMPHOCYTES % 10 % (0-0); BAND % (MANUAL) 29 % (0-6); BASOPHILS % (MANUAL) 0 % (0-2); EOSINOPHILS % (MANUAL) 1 % (0-7); LYMPHOCYTES % (MANUAL) 19 % (20-46); METAMYELOCYTES % 1 % (0-0); MONOCYTES % (MANUAL) 7 % (0-11)
[2016-06-07 10:32] LABS: MYELOCYTES % 1 % (0-0)
[2016-06-07] MEDS: FLUCONAZOLE 200 mg/ NS 100 ML IV SCH (10:33)
[2016-06-07] MEDS: OCTREOTIDE ACETATE 50 MCG/ML AMP SUBCUT SCH ×2 (12:36→23:50)
[2016-06-07] MEDS: LORazepam 2 MG/ML VIAL IVP PRN ×2 (14:00→20:39)
[2016-06-07] MEDS: MEROPENEM 500 MG in NS 50 ML IV SCH ×2 (15:46→22:21)
[2016-06-07 15:53] LABS: BILIRUBIN,URINE NEGATIVE (NEGATIVE); BLOOD, URINE 1+ (NEGATIVE); CLARITY/URINE CLEAR (CLEAR); COLOR,URINE YELLOW (YELLOW); GLUCOSE,URINE NEGATIVE (NEGATIVE); KETONES,URINE NEGATIVE (NEGATIVE); LEUKOCYTE ESTERASE ,URINE NEGATIVE (NEGATIVE); NITRITE, URINE NEGATIVE (NEGATIVE); PROTEIN URINE TRACE (NEGATIVE); UROBILINOGEN,URINE 0.2 (0.2-1.0)
[2016-06-07 18:27] LABS: BACTERIA,URINE FEW /HPF (None Seen); MUCUS,URINE None Seen /LPF (None Seen)
[2016-06-07] MEDS: 0.45% NACL 1,000 ML IV SCH (18:50)
[2016-06-07] MEDS: INSULIN REGULAR, HUMAN 100 UNITS/ML, 10 ML VIAL (novoLIN R) SUBCUT PRN (18:53)
[2016-06-08] VITALS (15 sets, daily range): BP systolic 115–180; BP diastolic 70–111; PULSE 96–115; RESP 15–28; TEMP 99.1; O2SAT 97–98
[2016-06-08] MEDS: VALPROATE SODIUM 500 MG in D5W 100 ML IV SCH ×4 (01:34→21:55)
[2016-06-08] MEDS: LABETALOL 100 MG/ 20ML VIAL IVP PRN ×3 (01:38→13:04)
[2016-06-08] MEDS: IPRATROPIUM BROM 0.5 MG/2.5 ML VIAL.NEB (ATROVENT) INH SCH ×4 (01:52→21:02)
[2016-06-08] MEDS: LORazepam 2 MG/ML VIAL IVP PRN (02:44)
[2016-06-08] MEDS: DILTIAZEM HCL 60 MG TABLET PO SCH ×3 (05:20→14:56)
[2016-06-08 06:26] LABS: BASOPHILS # (AUTO) 0.1 K/uL (0.0-0.2); BASOPHILS % (AUTO) 0.9 % (0.0-2.0); EOSINOPHILS # (AUTO) 0.2 K/uL (0.0-0.4); HEMATOCRIT 31.9 % (36-54); HEMOGLOBIN 10.6 g/dL (14.0-18.0); LYMPHOCYTES # (AUTO) 1.7 K/uL (1.0-5.5); LYMPHOCYTES % (AUTO) 10.9 % (20.5-51.5); MEAN CORPUSCULAR HEMOGLOBIN 28 pg (27-31); MEAN CORPUSCULAR HGB CONC 33 % (32-36); MEAN CORPUSCULAR VOLUME 85 fL (79.0-98.0); MONOCYTES # (AUTO) 2.3 K/uL (0.0-1.0); MONOCYTES % (AUTO) 14.9 % (1.7-9.3); NEUTROPHILS # (AUTO) 10.9 K/uL (1.8-7.7); NEUTROPHILS % (AUTO) 72.3 % (40.0-70.0); PLATELET COUNT (AUTO) 150 K/uL (130-430); RED BLOOD CELL COUNT(AUTO) 3.76 MIL/uL (4.2-6.2); RED CELL DISTRIBUTION WIDTH 17.3 % (9.0-15.0); WHITE BLOOD COUNT (AUTO) 15.2 K/uL (4.8-10.8)
[2016-06-08 06:54] LABS: CALCIUM 8.9 mg/dL (8.4-11.0); CREATININE 3.29 mg/dL (0.55-1.30); PHOSPHORUS 4.6 mg/dL (2.7-4.5); POTASSIUM 3.8 mmol/L (3.5-5.1); TOTAL BILIRUBIN 0.3 mg/dL (0.0-1.0); TOTAL PROTEIN, SERUM 8.5 g/dL (6.4-8.3)
[2016-06-08] MEDS: MEROPENEM 500 MG in NS 50 ML IV SCH ×2 (09:13→21:58)
[2016-06-08] MEDS ORDERED: VECURONIUM BROMIDE 10 MG/VIAL (NORCURON) IVP ONE (09:15)
[2016-06-08] MEDS ORDERED: MIDAZOLAM HCL 5 MG/5 ML VIAL IVP ONE (09:15)
[2016-06-08] MEDS: MULTIVITAMINS,THERAPEUTIC 5 ML UDC GT SCH (09:17)
[2016-06-08] MEDS: LIPASE/PROTEASE/AMYLASE 1 CAP GT SCH ×3 (09:17→17:34)
[2016-06-08] MEDS: HEPARIN SODIUM,PORCINE 5000 UNITS/ML VIAL SUBCUT SCH ×2 (09:17→22:01)
[2016-06-08] MEDS: FAMOTIDINE 20 MG TABLET GT SCH ×2 (09:17→21:56)
[2016-06-08] MEDS: LACTOBACILLUS RHAMNOSUS GG 1 CAP CAPSULE NG SCH ×2 (09:18→21:56)
[2016-06-08] MEDS: FLUCONAZOLE 200 mg/ NS 100 ML IV SCH (09:25)
[2016-06-08] MEDS: OCTREOTIDE ACETATE 50 MCG/ML AMP SUBCUT SCH ×2 (09:25→21:00)
[2016-06-08] MEDS: 0.45% NACL 1,000 ML IV SCH (09:26)
[2016-06-08] MEDS: SODIUM ACETATE IV SCH ×20 (10:51→23:32)
[2016-06-08] MEDS: TPN CENTRAL IV SCH ×20 (10:51→23:32)
[2016-06-08] MEDS: SODIUM CHLORIDE IV SCH ×20 (10:51→23:32)
[2016-06-08] MEDS: [UNRECOGNIZED DRUG - OTHER] IV SCH ×20 (10:51→23:32)
[2016-06-08] MEDS: cloNIDine HCL 0.1 MG TABLET PO PRN (12:14)
[2016-06-08] MEDS ORDERED: ENALAPRILAT DIHYDRATE 1.25 MG/ML VIAL IVP PRN (13:45)
[2016-06-08] MEDS: EPOETIN ALFA 10,000 UNITS/ML VIAL SUBCUT SCH (17:00)
[2016-06-09] VITALS (22 sets, daily range): BP systolic 105–171; BP diastolic 65–93; PULSE 104–128; RESP 13–33; TEMP 98.4–99.4; O2SAT 95–100
[2016-06-09] MEDS: MORPHINE 2 MG/ML INJ. SYRINGE IVP PRN ×2 (00:35→21:10)
[2016-06-09] MEDS: IPRATROPIUM BROM 0.5 MG/2.5 ML VIAL.NEB (ATROVENT) INH SCH ×4 (00:37→19:29)
[2016-06-09] MEDS: VALPROATE SODIUM 500 MG in D5W 100 ML IV SCH ×4 (02:24→20:43)
[2016-06-09] MEDS: LORazepam 2 MG/ML VIAL IVP PRN ×2 (02:29→22:13)
[2016-06-09 05:42] LABS: BASOPHILS # (AUTO) 0.2 K/uL (0.0-0.2); BASOPHILS % (AUTO) 1.2 % (0.0-2.0); EOSINOPHILS # (AUTO) 0.1 K/uL (0.0-0.4); EOSINOPHILS % (AUTO) 0.6 % (0.0-4.0); HEMATOCRIT 30.6 % (36-54); HEMOGLOBIN 10.2 g/dL (14.0-18.0); LYMPHOCYTES # (AUTO) 2.1 K/uL (1.0-5.5); LYMPHOCYTES % (AUTO) 14.4 % (20.5-51.5); MEAN CORPUSCULAR HEMOGLOBIN 28 pg (27-31); MEAN CORPUSCULAR HGB CONC 33 % (32-36); MEAN CORPUSCULAR VOLUME 85 fL (79.0-98.0); MONOCYTES # (AUTO) 2.2 K/uL (0.0-1.0); MONOCYTES % (AUTO) 14.7 % (1.7-9.3); NEUTROPHILS # (AUTO) 10.2 K/uL (1.8-7.7); NEUTROPHILS % (AUTO) 69.1 % (40.0-70.0); PLATELET COUNT (AUTO) 112 K/uL (130-430); RED BLOOD CELL COUNT(AUTO) 3.59 MIL/uL (4.2-6.2); RED CELL DISTRIBUTION WIDTH 18.7 % (9.0-15.0); WHITE BLOOD COUNT (AUTO) 14.8 K/uL (4.8-10.8)
[2016-06-09 05:51] LABS: CALCIUM 8.7 mg/dL (8.4-11.0); CREATININE 3.33 mg/dL (0.55-1.30); PHOSPHORUS 4.3 mg/dL (2.7-4.5); POTASSIUM 4.2 mmol/L (3.5-5.1)
[2016-06-09] MEDS: ACETAMINOPHEN 650 MG/20.3 ML UDC GT PRN (06:23)
[2016-06-09] MEDS: DILTIAZEM HCL 60 MG TABLET PO SCH ×3 (06:24→22:57)
[2016-06-09] MEDS: FAMOTIDINE 20 MG TABLET GT SCH ×2 (08:51→20:44)
[2016-06-09] MEDS: MULTIVITAMINS,THERAPEUTIC 5 ML UDC GT SCH (08:52)
[2016-06-09] MEDS: MEROPENEM 500 MG in NS 50 ML IV SCH ×2 (08:52→20:44)
[2016-06-09] MEDS: LIPASE/PROTEASE/AMYLASE 1 CAP GT SCH ×3 (08:52→17:57)
[2016-06-09] MEDS: LACTOBACILLUS RHAMNOSUS GG 1 CAP CAPSULE NG SCH ×2 (08:52→20:44)
[2016-06-09] MEDS: 0.45% NACL 1,000 ML IV SCH (08:53)
[2016-06-09] MEDS: HEPARIN SODIUM,PORCINE 5000 UNITS/ML VIAL SUBCUT SCH ×2 (08:54→20:47)
[2016-06-09] MEDS: FLUCONAZOLE 200 mg/ NS 100 ML IV SCH (09:02)
[2016-06-09] MEDS: OCTREOTIDE ACETATE 50 MCG/ML AMP SUBCUT SCH ×2 (09:10→20:44)
[2016-06-09] MEDS: SODIUM CHLORIDE IV SCH ×20 (10:31→23:02)
[2016-06-09] MEDS: [UNRECOGNIZED DRUG - OTHER] IV SCH ×20 (10:31→23:02)
[2016-06-09] MEDS: SODIUM ACETATE IV SCH ×20 (10:31→23:02)
[2016-06-09] MEDS: TPN CENTRAL IV SCH ×20 (10:31→23:02)
[2016-06-09] MEDS ORDERED: NS 250 ML IV ONE (12:45)
[2016-06-09] MEDS: NACL 0.9% 1,000 ML IV SCH (13:13)
[2016-06-09] MEDS: LABETALOL 100 MG/ 20ML VIAL IVP PRN (14:41)
[2016-06-09] MEDS ORDERED: metroNIDAZOLE 500 mg/NS 100 ML IV ONE (16:00)
[2016-06-09] MEDS: metroNIDAZOLE 500 mg/NS 100 ML IV SCH (22:56)
[2016-06-09] MEDS: INSULIN REGULAR, HUMAN 100 UNITS/ML, 10 ML VIAL (novoLIN R) SUBCUT PRN (23:25)
[2016-06-10] VITALS (30 sets, daily range): BP systolic 108–182; BP diastolic 67–112; PULSE 99–128; RESP 11–26; TEMP 98.5–100.4; O2SAT 98–100
[2016-06-10] MEDS: IPRATROPIUM BROM 0.5 MG/2.5 ML VIAL.NEB (ATROVENT) INH SCH ×4 (01:01→20:09)
[2016-06-10] MEDS: LORazepam 2 MG/ML VIAL IVP PRN ×3 (02:12→23:13)
[2016-06-10] MEDS: VALPROATE SODIUM 500 MG in D5W 100 ML IV SCH ×4 (02:12→20:53)
[2016-06-10] MEDS: NACL 0.9% 1,000 ML IV SCH ×2 (02:13→18:52)
[2016-06-10] MEDS: metroNIDAZOLE 500 mg/NS 100 ML IV SCH ×3 (05:59→22:20)
[2016-06-10] MEDS: DILTIAZEM HCL 60 MG TABLET PO SCH ×2 (05:59→18:48)
[2016-06-10] MEDS ORDERED: MORPHINE 2 MG/ML INJ. SYRINGE IVP ONE (06:30)
[2016-06-10 06:45] LABS: HEMATOCRIT 30.5 % (36-54); HEMOGLOBIN 10.2 g/dL (14.0-18.0); MEAN CORPUSCULAR HEMOGLOBIN 28 pg (27-31); MEAN CORPUSCULAR HGB CONC 34 % (32-36); MEAN CORPUSCULAR VOLUME 85 fL (79.0-98.0); PLATELET COUNT (AUTO) 151 K/uL (130-430); RED BLOOD CELL COUNT(AUTO) 3.61 MIL/uL (4.2-6.2); RED CELL DISTRIBUTION WIDTH 19.1 % (9.0-15.0); WHITE BLOOD COUNT (AUTO) 14.5 K/uL (4.8-10.8)
[2016-06-10 06:55] LABS: CALCIUM 8.7 mg/dL (8.4-11.0); CREATININE 2.87 mg/dL (0.55-1.30); POTASSIUM 4.1 mmol/L (3.5-5.1); TOTAL BILIRUBIN 0.4 mg/dL (0.0-1.0); TOTAL PROTEIN, SERUM 8.9 g/dL (6.4-8.3)
[2016-06-10] MEDS: ACETAMINOPHEN 650 MG/20.3 ML UDC GT PRN ×2 (07:22→21:59)
[2016-06-10 08:09] LABS: BAND % (MANUAL) 0 % (0-6); BASOPHILS % (MANUAL) 0 % (0-2); EOSINOPHILS % (MANUAL) 0 % (0-7); LYMPHOCYTES % (MANUAL) 21 % (20-46); MONOCYTES % (MANUAL) 6 % (0-11)
[2016-06-10] MEDS: MORPHINE 2 MG/ML INJ. SYRINGE IVP PRN ×3 (08:23→21:27)
[2016-06-10] MEDS: MULTIVITAMINS,THERAPEUTIC 5 ML UDC GT SCH (09:27)
[2016-06-10] MEDS: FAMOTIDINE 20 MG TABLET GT SCH (09:27)
[2016-06-10] MEDS: DIPHENOXYLATE HCL/ATROP SULF 2.5 MG TAB NG PRN (09:28)
[2016-06-10] MEDS: LIPASE/PROTEASE/AMYLASE 1 CAP GT SCH ×3 (09:28→18:47)
[2016-06-10] MEDS: OCTREOTIDE ACETATE 50 MCG/ML AMP SUBCUT SCH ×2 (09:28→21:58)
[2016-06-10] MEDS: MEROPENEM 500 MG in NS 50 ML IV SCH ×2 (09:29→21:57)
[2016-06-10] MEDS: FLUCONAZOLE 200 mg/ NS 100 ML IV SCH (09:29)
[2016-06-10] MEDS: [UNRECOGNIZED DRUG - OTHER] IV SCH ×10 (12:48)
[2016-06-10] MEDS: SODIUM ACETATE IV SCH ×10 (12:48)
[2016-06-10] MEDS: SODIUM CHLORIDE IV SCH ×10 (12:48)
[2016-06-10] MEDS: TPN CENTRAL IV SCH ×10 (12:48)
[2016-06-10] MEDS: LACTOBACILLUS RHAMNOSUS GG 1 CAP CAPSULE NG SCH ×2 (12:55→21:58)
[2016-06-10] MEDS: INSULIN REGULAR, HUMAN 100 UNITS/ML, 10 ML VIAL (novoLIN R) SUBCUT PRN (18:50)
[2016-06-10] MEDS: 0.45% NACL 1,000 ML IV SCH (20:43)
[2016-06-10] MEDS: PANTOPRAZOLE GRANULES PACKET 40 MG GT SCH (21:57)
[2016-06-10] MEDS: ENOXAPARIN SODIUM 30 MG/0.3 ML SYRINGE SUBCUT SCH (21:58)
[2016-06-10] MEDS: cloNIDine HCL 0.1 MG TABLET PO PRN (22:00)
[2016-06-11] VITALS (35 sets, daily range): BP systolic 111–181; BP diastolic 63–108; PULSE 99–123; RESP 14–26; TEMP 98.8–99.4; O2SAT 97–100
[2016-06-11] MEDS: LABETALOL 100 MG/ 20ML VIAL IVP PRN ×2 (00:30→14:11)
[2016-06-11] MEDS: DILTIAZEM HCL 60 MG TABLET PO SCH ×4 (00:49→18:13)
[2016-06-11] MEDS: IPRATROPIUM BROM 0.5 MG/2.5 ML VIAL.NEB (ATROVENT) INH SCH ×4 (00:51→20:00)
[2016-06-11] MEDS: VALPROATE SODIUM 500 MG in D5W 100 ML IV SCH ×3 (02:14→14:12)
[2016-06-11] MEDS: TPN CENTRAL IV SCH ×20 (02:15→16:30)
[2016-06-11] MEDS: SODIUM CHLORIDE IV SCH ×20 (02:15→16:30)
[2016-06-11] MEDS: SODIUM ACETATE IV SCH ×20 (02:15→16:30)
[2016-06-11] MEDS: [UNRECOGNIZED DRUG - OTHER] IV SCH ×20 (02:15→16:30)
[2016-06-11 07:07] LABS: BASOPHILS # (AUTO) 0.2 K/uL (0.0-0.2); BASOPHILS % (AUTO) 1.5 % (0.0-2.0); EOSINOPHILS # (AUTO) 0.3 K/uL (0.0-0.4); EOSINOPHILS % (AUTO) 2.2 % (0.0-4.0); HEMATOCRIT 29.9 % (36-54); LYMPHOCYTES % (AUTO) 13.7 % (20.5-51.5); MEAN CORPUSCULAR HEMOGLOBIN 28 pg (27-31); MEAN CORPUSCULAR HGB CONC 33 % (32-36); MEAN CORPUSCULAR VOLUME 85 fL (79.0-98.0); MONOCYTES # (AUTO) 1.3 K/uL (0.0-1.0); NEUTROPHILS # (AUTO) 10.8 K/uL (1.8-7.7); NEUTROPHILS % (AUTO) 73.6 % (40.0-70.0); PLATELET COUNT (AUTO) 156 K/uL (130-430); RED BLOOD CELL COUNT(AUTO) 3.53 MIL/uL (4.2-6.2); RED CELL DISTRIBUTION WIDTH 18.9 % (9.0-15.0); WHITE BLOOD COUNT (AUTO) 14.6 K/uL (4.8-10.8)
[2016-06-11] MEDS: metroNIDAZOLE 500 mg/NS 100 ML IV SCH ×3 (07:46→22:23)
[2016-06-11] MEDS: NACL 0.9% 1,000 ML IV SCH ×2 (07:49→14:13)
[2016-06-11 07:55] LABS: CALCIUM 8.8 mg/dL (8.4-11.0); CREATININE 2.58 mg/dL (0.55-1.30); PHOSPHORUS 4.3 mg/dL (2.7-4.5); POTASSIUM 4.1 mmol/L (3.5-5.1)
[2016-06-11] MEDS: MULTIVITAMINS,THERAPEUTIC 5 ML UDC GT SCH (09:03)
[2016-06-11] MEDS: PANTOPRAZOLE GRANULES PACKET 40 MG GT SCH ×2 (09:04→20:41)
[2016-06-11] MEDS: LIPASE/PROTEASE/AMYLASE 1 CAP GT SCH ×3 (09:04→18:13)
[2016-06-11] MEDS: OCTREOTIDE ACETATE 50 MCG/ML AMP SUBCUT SCH ×2 (09:05→20:42)
[2016-06-11] MEDS: FLUCONAZOLE 200 mg/ NS 100 ML IV SCH (09:06)
[2016-06-11] MEDS: LACTOBACILLUS RHAMNOSUS GG 1 CAP CAPSULE NG SCH ×2 (09:30→20:41)
[2016-06-11] MEDS: MEROPENEM 500 MG in NS 50 ML IV SCH (10:36)
[2016-06-11] MEDS: INSULIN REGULAR, HUMAN 100 UNITS/ML, 10 ML VIAL (novoLIN R) SUBCUT PRN (12:22)
[2016-06-11] MEDS: 0.45% NACL 1,000 ML IV SCH (14:14)
[2016-06-11] MEDS ORDERED: COMMUNICATION ORDER XX ONE (18:00)
[2016-06-11] MEDS: EPOETIN ALFA 10,000 UNITS/ML VIAL SUBCUT SCH (18:14)
[2016-06-11] MEDS: LEVOFLOXACIN 250 MG/D5W 50 ML IV SCH (18:14)
[2016-06-11] MEDS: MORPHINE 2 MG/ML INJ. SYRINGE IVP PRN ×2 (18:43→21:10)
[2016-06-11] MEDS: ENOXAPARIN SODIUM 30 MG/0.3 ML SYRINGE SUBCUT SCH (20:41)
[2016-06-11] MEDS ORDERED: LACTOBACILLUS RHAMNOSUS GG 1 CAP CAPSULE ONE (20:42)
[2016-06-11] MEDS: LORazepam 2 MG/ML VIAL IVP PRN (22:22)
[2016-06-12] VITALS (33 sets, daily range): BP systolic 119–163; BP diastolic 67–107; PULSE 103–123; RESP 12–33; TEMP 98–99.9; O2SAT 97–100
[2016-06-12] MEDS ORDERED: clonazePAM 0.5 MG TABLET ONE (00:22)
[2016-06-12] MEDS ORDERED: DILTIAZEM HCL 60 MG TABLET ONE (00:24)
[2016-06-12] MEDS: clonazePAM 0.5 MG TABLET PO SCH ×3 (00:32→20:23)
[2016-06-12] MEDS: DILTIAZEM HCL 60 MG TABLET PO SCH ×4 (00:33→18:23)
[2016-06-12] MEDS: IPRATROPIUM BROM 0.5 MG/2.5 ML VIAL.NEB (ATROVENT) INH SCH ×4 (01:04→19:58)
[2016-06-12] MEDS: MORPHINE 2 MG/ML INJ. SYRINGE IVP PRN ×4 (01:10→20:19)
[2016-06-12] MEDS: LABETALOL 100 MG/ 20ML VIAL IVP PRN (02:45)
[2016-06-12] MEDS: metroNIDAZOLE 500 mg/NS 100 ML IV SCH ×3 (05:57→20:58)
[2016-06-12] MEDS: ACETAMINOPHEN 650 MG/20.3 ML UDC GT PRN (06:00)
[2016-06-12] MEDS: SODIUM CHLORIDE IV SCH ×20 (06:28→20:22)
[2016-06-12] MEDS: TPN CENTRAL IV SCH ×20 (06:28→20:22)
[2016-06-12] MEDS: SODIUM ACETATE IV SCH ×20 (06:28→20:22)
[2016-06-12] MEDS: [UNRECOGNIZED DRUG - OTHER] IV SCH ×20 (06:28→20:22)
[2016-06-12 07:37] LABS: BASOPHILS # (AUTO) 0.2 K/uL (0.0-0.2); BASOPHILS % (AUTO) 1.3 % (0.0-2.0); EOSINOPHILS # (AUTO) 0.2 K/uL (0.0-0.4); EOSINOPHILS % (AUTO) 1.2 % (0.0-4.0); HEMATOCRIT 30.1 % (36-54); LYMPHOCYTES # (AUTO) 1.9 K/uL (1.0-5.5); LYMPHOCYTES % (AUTO) 11.9 % (20.5-51.5); MEAN CORPUSCULAR HEMOGLOBIN 28 pg (27-31); MEAN CORPUSCULAR HGB CONC 33 % (32-36); MEAN CORPUSCULAR VOLUME 85 fL (79.0-98.0); MONOCYTES # (AUTO) 1.5 K/uL (0.0-1.0); MONOCYTES % (AUTO) 9.5 % (1.7-9.3); NEUTROPHILS # (AUTO) 12.1 K/uL (1.8-7.7); NEUTROPHILS % (AUTO) 76.1 % (40.0-70.0); PLATELET COUNT (AUTO) 158 K/uL (130-430); RED BLOOD CELL COUNT(AUTO) 3.54 MIL/uL (4.2-6.2); RED CELL DISTRIBUTION WIDTH 19.3 % (9.0-15.0); WHITE BLOOD COUNT (AUTO) 15.9 K/uL (4.8-10.8)
[2016-06-12 08:01] LABS: CREATININE 2.12 mg/dL (0.55-1.30); POTASSIUM 4.1 mmol/L (3.5-5.1)
[2016-06-12] MEDS ORDERED: NACL 0.9% 1,000 ML IV SCH (08:30)
[2016-06-12] MEDS: OCTREOTIDE ACETATE 50 MCG/ML AMP SUBCUT SCH ×2 (08:44→20:22)
[2016-06-12] MEDS: PANTOPRAZOLE GRANULES PACKET 40 MG GT SCH (08:44)
[2016-06-12] MEDS: LIPASE/PROTEASE/AMYLASE 1 CAP GT SCH ×3 (08:44→18:22)
[2016-06-12] MEDS: FLUCONAZOLE 200 mg/ NS 100 ML IV SCH (08:44)
[2016-06-12] MEDS: MULTIVITAMINS,THERAPEUTIC 5 ML UDC GT SCH (08:45)
[2016-06-12] MEDS: LACTOBACILLUS RHAMNOSUS GG 1 CAP CAPSULE NG SCH ×2 (09:00→20:23)
[2016-06-12] MEDS: 0.45% NACL 1,000 ML IV SCH (09:19)
[2016-06-12] MEDS: INSULIN REGULAR, HUMAN 100 UNITS/ML, 10 ML VIAL (novoLIN R) SUBCUT PRN (12:04)
[2016-06-12] MEDS: LEVOFLOXACIN 250 MG/D5W 50 ML IV SCH (16:17)
[2016-06-12] MEDS: ENOXAPARIN SODIUM 30 MG/0.3 ML SYRINGE SUBCUT SCH (20:22)
[2016-06-12] MEDS: LORazepam 2 MG/ML VIAL IVP PRN (23:12)
[2016-06-13] VITALS (34 sets, daily range): BP systolic 93–150; BP diastolic 40–100; PULSE 106–130; RESP 12–44; TEMP 98.1–99.9; O2SAT 98–100
[2016-06-13] MEDS: DILTIAZEM HCL 60 MG TABLET PO SCH ×4 (00:19→17:33)
[2016-06-13] MEDS: IPRATROPIUM BROM 0.5 MG/2.5 ML VIAL.NEB (ATROVENT) INH SCH ×4 (01:14→19:28)
[2016-06-13] MEDS: MORPHINE 2 MG/ML INJ. SYRINGE IVP PRN ×3 (04:46→22:37)
[2016-06-13] MEDS: metroNIDAZOLE 500 mg/NS 100 ML IV SCH ×3 (05:40→22:37)
[2016-06-13 07:12] LABS: BASOPHILS # (AUTO) 0.3 K/uL (0.0-0.2); BASOPHILS % (AUTO) 1.7 % (0.0-2.0); EOSINOPHILS # (AUTO) 0.1 K/uL (0.0-0.4); EOSINOPHILS % (AUTO) 0.9 % (0.0-4.0); HEMATOCRIT 29.4 % (36-54); HEMOGLOBIN 9.9 g/dL (14.0-18.0); LYMPHOCYTES # (AUTO) 1.7 K/uL (1.0-5.5); LYMPHOCYTES % (AUTO) 10.5 % (20.5-51.5); MEAN CORPUSCULAR HEMOGLOBIN 29 pg (27-31); MEAN CORPUSCULAR HGB CONC 34 % (32-36); MEAN CORPUSCULAR VOLUME 85 fL (79.0-98.0); MONOCYTES # (AUTO) 1.9 K/uL (0.0-1.0); MONOCYTES % (AUTO) 12.2 % (1.7-9.3); NEUTROPHILS # (AUTO) 11.9 K/uL (1.8-7.7); NEUTROPHILS % (AUTO) 74.7 % (40.0-70.0); PLATELET COUNT (AUTO) 141 K/uL (130-430); RED BLOOD CELL COUNT(AUTO) 3.45 MIL/uL (4.2-6.2); RED CELL DISTRIBUTION WIDTH 19.3 % (9.0-15.0); WHITE BLOOD COUNT (AUTO) 15.9 K/uL (4.8-10.8)
[2016-06-13 07:34] LABS: CALCIUM 8.6 mg/dL (8.4-11.0); CREATININE 1.89 mg/dL (0.55-1.30); PHOSPHORUS 3.6 mg/dL (2.7-4.5); POTASSIUM 4.3 mmol/L (3.5-5.1)
[2016-06-13] MEDS: MULTIVITAMINS,THERAPEUTIC 5 ML UDC GT SCH (08:11)
[2016-06-13] MEDS: LACTOBACILLUS RHAMNOSUS GG 1 CAP CAPSULE NG SCH ×2 (08:11→20:15)
[2016-06-13] MEDS: clonazePAM 0.5 MG TABLET PO SCH (08:12)
[2016-06-13] MEDS: LIPASE/PROTEASE/AMYLASE 1 CAP GT SCH ×3 (08:12→17:33)
[2016-06-13] MEDS: PANTOPRAZOLE SODIUM 40 MG TAB GT SCH (08:12)
[2016-06-13] MEDS: OCTREOTIDE ACETATE 50 MCG/ML AMP SUBCUT SCH ×2 (08:13→20:15)
[2016-06-13] MEDS: TPN CENTRAL IV SCH ×10 (09:43)
[2016-06-13] MEDS: SODIUM ACETATE IV SCH ×19 (09:43→20:18)
[2016-06-13] MEDS: SODIUM CHLORIDE IV SCH ×10 (09:43)
[2016-06-13] MEDS: [UNRECOGNIZED DRUG - OTHER] IV SCH ×10 (09:43)
[2016-06-13] MEDS ORDERED: KETOROLAC TROMETHAMINE 30 MG VIAL IM ONE (10:45)
[2016-06-13] MEDS ORDERED: KETOROLAC TROMETHAMINE 30 MG VIAL IVP ONE (10:45)
[2016-06-13] MEDS ORDERED: KETOROLAC TROMETHAMINE 30 MG VIAL IM PRN (10:45)
[2016-06-13] MEDS: INSULIN REGULAR, HUMAN 100 UNITS/ML, 10 ML VIAL (novoLIN R) SUBCUT PRN ×2 (11:32→17:37)
[2016-06-13] MEDS: LEVOFLOXACIN 250 MG/D5W 50 ML IV SCH (16:13)
[2016-06-13] MEDS: EPOETIN ALFA 10,000 UNITS/ML VIAL SUBCUT SCH (17:36)
[2016-06-13] MEDS: TEMAZEPAM 15 MG CAPSULE PO SCH (20:15)
[2016-06-13] MEDS: ENOXAPARIN SODIUM 30 MG/0.3 ML SYRINGE SUBCUT SCH (20:16)
[2016-06-13] MEDS: TPN PERIPHERAL IV SCH ×9 (20:18)
[2016-06-13] MEDS: [UNRECOGNIZED DRUG - OTHER] IV SCH ×9 (20:18)
[2016-06-13] MEDS: POTASSIUM CHLORIDE IV SCH ×9 (20:18)
[2016-06-14] VITALS (34 sets, daily range): BP systolic 111–157; BP diastolic 68–94; PULSE 102–121; RESP 13–31; TEMP 98–98.8; O2SAT 99–100
[2016-06-14] MEDS: DILTIAZEM HCL 60 MG TABLET PO SCH ×4 (00:33→17:25)
[2016-06-14] MEDS: MORPHINE 2 MG/ML INJ. SYRINGE IVP PRN ×3 (03:18→21:30)
[2016-06-14] MEDS: IPRATROPIUM BROM 0.5 MG/2.5 ML VIAL.NEB (ATROVENT) INH SCH ×4 (03:54→20:19)
[2016-06-14] MEDS: metroNIDAZOLE 500 mg/NS 100 ML IV SCH ×3 (05:46→21:32)
[2016-06-14] MEDS: [UNRECOGNIZED DRUG - OTHER] IV SCH ×18 (05:51→17:18)
[2016-06-14] MEDS: POTASSIUM CHLORIDE IV SCH ×18 (05:51→17:18)
[2016-06-14] MEDS: SODIUM ACETATE IV SCH ×18 (05:51→17:18)
[2016-06-14] MEDS: TPN PERIPHERAL IV SCH ×18 (05:51→17:18)
[2016-06-14 06:58] LABS: BASOPHILS # (AUTO) 0.2 K/uL (0.0-0.2); BASOPHILS % (AUTO) 1.3 % (0.0-2.0); CALCIUM 8.8 mg/dL (8.4-11.0); CREATININE 1.95 mg/dL (0.55-1.30); EOSINOPHILS # (AUTO) 0.3 K/uL (0.0-0.4); EOSINOPHILS % (AUTO) 2.2 % (0.0-4.0); HEMATOCRIT 28.3 % (36-54); HEMOGLOBIN 9.5 g/dL (14.0-18.0); LYMPHOCYTES # (AUTO) 2.1 K/uL (1.0-5.5); LYMPHOCYTES % (AUTO) 17.1 % (20.5-51.5); MEAN CORPUSCULAR HEMOGLOBIN 28 pg (27-31); MEAN CORPUSCULAR HGB CONC 34 % (32-36); MEAN CORPUSCULAR VOLUME 85 fL (79.0-98.0); MONOCYTES # (AUTO) 1.2 K/uL (0.0-1.0); MONOCYTES % (AUTO) 9.2 % (1.7-9.3); NEUTROPHILS # (AUTO) 8.7 K/uL (1.8-7.7); NEUTROPHILS % (AUTO) 70.2 % (40.0-70.0); PLATELET COUNT (AUTO) 180 K/uL (130-430); POTASSIUM 4.6 mmol/L (3.5-5.1); RED BLOOD CELL COUNT(AUTO) 3.35 MIL/uL (4.2-6.2); RED CELL DISTRIBUTION WIDTH 18.5 % (9.0-15.0); WHITE BLOOD COUNT (AUTO) 12.5 K/uL (4.8-10.8)
[2016-06-14] MEDS: PANTOPRAZOLE SODIUM 40 MG TAB GT SCH (08:35)
[2016-06-14] MEDS: LIPASE/PROTEASE/AMYLASE 1 CAP GT SCH ×3 (08:35→17:24)
[2016-06-14] MEDS: OCTREOTIDE ACETATE 50 MCG/ML AMP SUBCUT SCH ×2 (08:35→21:32)
[2016-06-14] MEDS: LACTOBACILLUS RHAMNOSUS GG 1 CAP CAPSULE NG SCH ×2 (08:35→21:31)
[2016-06-14] MEDS: MULTIVITAMINS,THERAPEUTIC 5 ML UDC GT SCH (08:38)
[2016-06-14] MEDS: CARVEDILOL 6.25 MG TABLET (COREG) PO SCH ×2 (10:02→21:31)
[2016-06-14] MEDS: LEVOFLOXACIN 250 MG/D5W 50 ML IV SCH (17:17)
[2016-06-14] MEDS: ACETAMINOPHEN 650 MG/20.3 ML UDC GT PRN (18:38)
[2016-06-14] MEDS: ENOXAPARIN SODIUM 30 MG/0.3 ML SYRINGE SUBCUT SCH (21:30)
[2016-06-14] MEDS: TEMAZEPAM 15 MG CAPSULE PO SCH (21:31)
[2016-06-15] VITALS (28 sets, daily range): BP systolic 109–125; BP diastolic 66–85; PULSE 85–108; RESP 16–44; TEMP 97.4–98; O2SAT 98–100
[2016-06-15] MEDS: DILTIAZEM HCL 60 MG TABLET PO SCH ×4 (00:59→17:23)
[2016-06-15] MEDS: IPRATROPIUM BROM 0.5 MG/2.5 ML VIAL.NEB (ATROVENT) INH SCH ×4 (01:49→20:38)
[2016-06-15] MEDS: [UNRECOGNIZED DRUG - OTHER] IV SCH ×9 (03:25)
[2016-06-15] MEDS: POTASSIUM CHLORIDE IV SCH ×18 (03:25→17:00)
[2016-06-15] MEDS: TPN PERIPHERAL IV SCH ×18 (03:25→17:00)
[2016-06-15] MEDS: SODIUM ACETATE IV SCH ×18 (03:25→17:00)
[2016-06-15] MEDS: metroNIDAZOLE 500 mg/NS 100 ML IV SCH ×3 (05:57→21:04)
[2016-06-15 06:21] LABS: BASOPHILS # (AUTO) 0.1 K/uL (0.0-0.2); BASOPHILS % (AUTO) 1.4 % (0.0-2.0); EOSINOPHILS # (AUTO) 0.3 K/uL (0.0-0.4); EOSINOPHILS % (AUTO) 3.6 % (0.0-4.0); HEMATOCRIT 26.9 % (36-54); HEMOGLOBIN 8.9 g/dL (14.0-18.0); LYMPHOCYTES # (AUTO) 1.8 K/uL (1.0-5.5); LYMPHOCYTES % (AUTO) 20.5 % (20.5-51.5); MEAN CORPUSCULAR HEMOGLOBIN 28 pg (27-31); MEAN CORPUSCULAR HGB CONC 33 % (32-36); MEAN CORPUSCULAR VOLUME 85 fL (79.0-98.0); MONOCYTES % (AUTO) 12.1 % (1.7-9.3); NEUTROPHILS # (AUTO) 5.4 K/uL (1.8-7.7); NEUTROPHILS % (AUTO) 62.4 % (40.0-70.0); PLATELET COUNT (AUTO) 229 K/uL (130-430); RED BLOOD CELL COUNT(AUTO) 3.16 MIL/uL (4.2-6.2); RED CELL DISTRIBUTION WIDTH 19.2 % (9.0-15.0); WHITE BLOOD COUNT (AUTO) 8.6 K/uL (4.8-10.8)
[2016-06-15 06:55] LABS: CALCIUM 8.8 mg/dL (8.4-11.0); CREATININE 1.66 mg/dL (0.55-1.30)
[2016-06-15] MEDS: MULTIVITAMINS,THERAPEUTIC 5 ML UDC GT SCH (08:17)
[2016-06-15] MEDS: PANTOPRAZOLE SODIUM 40 MG TAB GT SCH (08:18)
[2016-06-15] MEDS: LACTOBACILLUS RHAMNOSUS GG 1 CAP CAPSULE NG SCH ×2 (08:18→21:03)
[2016-06-15] MEDS: LIPASE/PROTEASE/AMYLASE 1 CAP GT SCH ×3 (08:18→17:23)
[2016-06-15] MEDS: CARVEDILOL 6.25 MG TABLET (COREG) PO SCH ×2 (08:18→20:51)
[2016-06-15] MEDS: OCTREOTIDE ACETATE 50 MCG/ML AMP SUBCUT SCH ×2 (08:21→20:52)
[2016-06-15] MEDS: LEVOFLOXACIN 250 MG/D5W 50 ML IV SCH (16:52)
[2016-06-15] MEDS: [UNRECOGNIZED DRUG - OTHER] IV SCH ×9 (17:00)
[2016-06-15] MEDS: EPOETIN ALFA 10,000 UNITS/ML VIAL SUBCUT SCH (17:01)
[2016-06-15] MEDS: ZOLPIDEM TARTRATE 5 MG TABLET PO SCH (20:49)
[2016-06-15] MEDS: ENOXAPARIN SODIUM 30 MG/0.3 ML SYRINGE SUBCUT SCH (20:51)
[2016-06-15] MEDS: TEMAZEPAM 15 MG CAPSULE PO SCH (20:51)
[2016-06-16] VITALS (27 sets, daily range): BP systolic 101–143; BP diastolic 61–95; PULSE 95–109; RESP 10–43; TEMP 97.4–98; O2SAT 99–100
[2016-06-16] MEDS: DILTIAZEM HCL 60 MG TABLET PO SCH ×3 (00:07→20:02)
[2016-06-16] MEDS: IPRATROPIUM BROM 0.5 MG/2.5 ML VIAL.NEB (ATROVENT) INH SCH ×4 (02:05→19:16)
[2016-06-16] MEDS: metroNIDAZOLE 500 mg/NS 100 ML IV SCH (06:18)
[2016-06-16 06:56] LABS: BASOPHILS # (AUTO) 0.1 K/uL (0.0-0.2); BASOPHILS % (AUTO) 1.3 % (0.0-2.0); EOSINOPHILS # (AUTO) 0.2 K/uL (0.0-0.4); EOSINOPHILS % (AUTO) 2.7 % (0.0-4.0); HEMATOCRIT 27.7 % (36-54); HEMOGLOBIN 9.4 g/dL (14.0-18.0); LYMPHOCYTES # (AUTO) 1.7 K/uL (1.0-5.5); LYMPHOCYTES % (AUTO) 21.2 % (20.5-51.5); MEAN CORPUSCULAR HEMOGLOBIN 29 pg (27-31); MEAN CORPUSCULAR HGB CONC 34 % (32-36); MEAN CORPUSCULAR VOLUME 84 fL (79.0-98.0); MONOCYTES # (AUTO) 0.8 K/uL (0.0-1.0); MONOCYTES % (AUTO) 10.5 % (1.7-9.3); NEUTROPHILS # (AUTO) 5.1 K/uL (1.8-7.7); NEUTROPHILS % (AUTO) 64.3 % (40.0-70.0); PLATELET COUNT (AUTO) 275 K/uL (130-430); RED CELL DISTRIBUTION WIDTH 18.2 % (9.0-15.0); WHITE BLOOD COUNT (AUTO) 7.9 K/uL (4.8-10.8)
[2016-06-16 07:47] LABS: ALBUMIN 2.1 g/dL (3.4-4.8); CALCIUM 8.8 mg/dL (8.4-11.0); CREATININE 1.43 mg/dL (0.55-1.30); PHOSPHORUS 4.6 mg/dL (2.7-4.5); POTASSIUM 4.8 mmol/L (3.5-5.1); TOTAL BILIRUBIN 0.2 mg/dL (0.0-1.0); TOTAL PROTEIN, SERUM 8.3 g/dL (6.4-8.3)
[2016-06-16] MEDS: LIPASE/PROTEASE/AMYLASE 1 CAP GT SCH ×3 (07:58→17:12)
[2016-06-16] MEDS: LACTOBACILLUS RHAMNOSUS GG 1 CAP CAPSULE NG SCH ×2 (09:27→20:03)
[2016-06-16] MEDS: PANTOPRAZOLE SODIUM 40 MG TAB GT SCH (09:27)
[2016-06-16] MEDS: MULTIVITAMINS,THERAPEUTIC 5 ML UDC GT SCH (09:27)
[2016-06-16] MEDS: CARVEDILOL 6.25 MG TABLET (COREG) PO SCH ×2 (09:29→20:03)
[2016-06-16] MEDS: OCTREOTIDE ACETATE 50 MCG/ML AMP SUBCUT SCH ×2 (09:30→20:29)
[2016-06-16] MEDS: [UNRECOGNIZED DRUG - OTHER] IV SCH ×9 (09:48)
[2016-06-16] MEDS: POTASSIUM CHLORIDE IV SCH ×9 (09:48)
[2016-06-16] MEDS: TPN PERIPHERAL IV SCH ×9 (09:48)
[2016-06-16] MEDS: SODIUM ACETATE IV SCH ×9 (09:48)
[2016-06-16] MEDS: LEVOFLOXACIN 250 MG/D5W 50 ML IV SCH (15:52)
[2016-06-16] MEDS: ZOLPIDEM TARTRATE 5 MG TABLET PO SCH (20:03)
[2016-06-16] MEDS: ENOXAPARIN SODIUM 30 MG/0.3 ML SYRINGE SUBCUT SCH (20:29)
[2016-06-17] VITALS (26 sets, daily range): BP systolic 101–138; BP diastolic 65–89; PULSE 78–126; RESP 14–24; TEMP 97–98.2; O2SAT 98–100
[2016-06-17] MEDS: LORazepam 2 MG/ML VIAL IVP PRN (00:37)
[2016-06-17] MEDS: IPRATROPIUM BROM 0.5 MG/2.5 ML VIAL.NEB (ATROVENT) INH SCH ×4 (01:47→19:27)
[2016-06-17 07:13] LABS: CALCIUM 8.8 mg/dL (8.4-11.0); CREATININE 1.4 mg/dL (0.55-1.30); PHOSPHORUS 4.2 mg/dL (2.7-4.5); POTASSIUM 4.4 mmol/L (3.5-5.1)
[2016-06-17] MEDS: PANTOPRAZOLE SODIUM 40 MG TAB GT SCH (09:12)
[2016-06-17] MEDS: MULTIVITAMINS,THERAPEUTIC 5 ML UDC GT SCH (09:12)
[2016-06-17] MEDS: LACTOBACILLUS RHAMNOSUS GG 1 CAP CAPSULE NG SCH ×2 (09:12→20:33)
[2016-06-17] MEDS: LIPASE/PROTEASE/AMYLASE 1 CAP GT SCH ×3 (09:13→19:17)
[2016-06-17] MEDS: DILTIAZEM HCL 60 MG TABLET PO SCH ×2 (09:14→20:35)
[2016-06-17] MEDS: OCTREOTIDE ACETATE 50 MCG/ML AMP SUBCUT SCH ×2 (09:16→20:36)
[2016-06-17] MEDS: NACL 0.9% 1,000 ML IV SCH ×2 (11:14→23:01)
[2016-06-17] MEDS: CARVEDILOL 6.25 MG TABLET (COREG) PO SCH ×2 (11:17→20:35)
[2016-06-17] MEDS: LEVOFLOXACIN 250 MG/D5W 50 ML IV SCH (15:57)
[2016-06-17] MEDS: ACETAMINOPHEN 650 MG/20.3 ML UDC GT PRN (16:04)
[2016-06-17] MEDS: MORPHINE 2 MG/ML INJ. SYRINGE IVP PRN (17:44)
[2016-06-17] MEDS: ENOXAPARIN SODIUM 30 MG/0.3 ML SYRINGE SUBCUT SCH (20:36)
[2016-06-17] MEDS: ZOLPIDEM TARTRATE 5 MG TABLET PO SCH (21:00)
[2016-06-17] MEDS ORDERED: LORazepam 2 MG/ML VIAL IVP ONE (21:45)
[2016-06-17] MEDS ORDERED: LORazepam 2 MG/ML VIAL ONE (21:52)
[2016-06-18] VITALS (25 sets, daily range): BP systolic 108–141; BP diastolic 64–95; PULSE 91–130; RESP 13–30; TEMP 97.7–98.8; O2SAT 98–100
[2016-06-18] MEDS: IPRATROPIUM BROM 0.5 MG/2.5 ML VIAL.NEB (ATROVENT) INH SCH ×3 (01:06→19:36)
[2016-06-18] MEDS ORDERED: LORazepam 2 MG/ML VIAL IVP PRN ×2 (05:30)
[2016-06-18] MEDS: MULTIVITAMINS,THERAPEUTIC 5 ML UDC GT SCH (08:09)
[2016-06-18] MEDS: LIPASE/PROTEASE/AMYLASE 1 CAP GT SCH ×3 (08:09→18:28)
[2016-06-18] MEDS: PANTOPRAZOLE SODIUM 40 MG TAB GT SCH (08:09)
[2016-06-18] MEDS: LACTOBACILLUS RHAMNOSUS GG 1 CAP CAPSULE NG SCH ×2 (08:10→21:13)
[2016-06-18] MEDS: CARVEDILOL 6.25 MG TABLET (COREG) PO SCH ×2 (08:10→21:13)
[2016-06-18] MEDS: OCTREOTIDE ACETATE 50 MCG/ML AMP SUBCUT SCH ×2 (08:11→21:13)
[2016-06-18] MEDS: DILTIAZEM HCL 60 MG TABLET PO SCH ×2 (08:11→21:14)
[2016-06-18] MEDS ORDERED: MIDAZOLAM HCL 2 MG/2 ML VIAL (VERSED) IVP PRN (09:30)
[2016-06-18] MEDS ORDERED: BISACODYL 5 MG TABLET.DR (DULCOLAX) PO ONE (17:00)
[2016-06-18] MEDS: LEVOFLOXACIN 250 MG/D5W 50 ML IV SCH (17:21)
[2016-06-18] MEDS ORDERED: GOLYTELY / COLYTE SOLUTION 4 LITERS PO ONE (18:00)
[2016-06-18] MEDS: ENOXAPARIN SODIUM 30 MG/0.3 ML SYRINGE SUBCUT SCH (21:12)
[2016-06-18] MEDS: ZOLPIDEM TARTRATE 5 MG TABLET PO SCH (21:13)
[2016-06-18] MEDS: MORPHINE 2 MG/ML INJ. SYRINGE IVP PRN (23:45)
[2016-06-19] VITALS (13 sets, daily range): BP systolic 114–145; BP diastolic 66–80; PULSE 95–123; RESP 17–18; TEMP 97.3–98.6; O2SAT 97–100
[2016-06-19] MEDS ORDERED: LORazepam 2 MG/ML VIAL IVP PRN (00:15)
[2016-06-19] MEDS: IPRATROPIUM BROM 0.5 MG/2.5 ML VIAL.NEB (ATROVENT) INH SCH ×3 (00:56→19:40)
[2016-06-19] MEDS: NACL 0.9% 1,000 ML IV SCH ×2 (01:12→15:41)
[2016-06-19 07:37] LABS: BASOPHILS # (AUTO) 0.1 K/uL (0.0-0.2); BASOPHILS % (AUTO) 1.6 % (0.0-2.0); EOSINOPHILS # (AUTO) 0.3 K/uL (0.0-0.4); EOSINOPHILS % (AUTO) 3.2 % (0.0-4.0); HEMATOCRIT 29.7 % (36-54); LYMPHOCYTES # (AUTO) 2.3 K/uL (1.0-5.5); LYMPHOCYTES % (AUTO) 25.7 % (20.5-51.5); MEAN CORPUSCULAR HEMOGLOBIN 28 pg (27-31); MEAN CORPUSCULAR HGB CONC 34 % (32-36); MEAN CORPUSCULAR VOLUME 85 fL (79.0-98.0); MONOCYTES # (AUTO) 1.3 K/uL (0.0-1.0); MONOCYTES % (AUTO) 14.8 % (1.7-9.3); NEUTROPHILS # (AUTO) 4.9 K/uL (1.8-7.7); NEUTROPHILS % (AUTO) 54.7 % (40.0-70.0); PLATELET COUNT (AUTO) 499 K/uL (130-430); RED BLOOD CELL COUNT(AUTO) 3.52 MIL/uL (4.2-6.2); RED CELL DISTRIBUTION WIDTH 18.3 % (9.0-15.0); WHITE BLOOD COUNT (AUTO) 8.9 K/uL (4.8-10.8)
[2016-06-19 07:48] LABS: ALBUMIN 2.1 g/dL (3.4-4.8); CALCIUM 8.9 mg/dL (8.4-11.0); CREATININE 1.31 mg/dL (0.55-1.30); POTASSIUM 3.9 mmol/L (3.5-5.1); TOTAL BILIRUBIN 0.2 mg/dL (0.0-1.0); TOTAL PROTEIN, SERUM 8.3 g/dL (6.4-8.3)
[2016-06-19 08:18] LABS: INR 1.1 (0.80-1.20); PROTHROMBIN TIME 11.8 SECS (9.5-12.5)
[2016-06-19] MEDS: MULTIVITAMINS,THERAPEUTIC 5 ML UDC GT SCH (08:28)
[2016-06-19] MEDS: LIPASE/PROTEASE/AMYLASE 1 CAP GT SCH ×3 (08:28→17:40)
[2016-06-19] MEDS: PANTOPRAZOLE SODIUM 40 MG TAB GT SCH (08:29)
[2016-06-19] MEDS: LACTOBACILLUS RHAMNOSUS GG 1 CAP CAPSULE NG SCH ×2 (08:29→21:13)
[2016-06-19] MEDS: CARVEDILOL 6.25 MG TABLET (COREG) PO SCH ×2 (08:29→21:12)
[2016-06-19] MEDS: DILTIAZEM HCL 60 MG TABLET PO SCH ×2 (08:29→21:13)
[2016-06-19] MEDS: OCTREOTIDE ACETATE 50 MCG/ML AMP SUBCUT SCH ×2 (08:30→21:11)
[2016-06-19] MEDS: LEVOFLOXACIN 250 MG/D5W 50 ML IV SCH (16:01)
[2016-06-19] MEDS: ENOXAPARIN SODIUM 30 MG/0.3 ML SYRINGE SUBCUT SCH (21:11)
[2016-06-19] MEDS: ZOLPIDEM TARTRATE 5 MG TABLET PO SCH (21:13)
[2016-06-20] VITALS (11 sets, daily range): BP systolic 102–140; BP diastolic 68–86; PULSE 103–118; RESP 16–20; TEMP 97.8–100.3; O2SAT 98–100
[2016-06-20] MEDS: IPRATROPIUM BROM 0.5 MG/2.5 ML VIAL.NEB (ATROVENT) INH SCH ×4 (00:55→19:00)
[2016-06-20] MEDS: ACETAMINOPHEN 650 MG/20.3 ML UDC GT PRN (03:39)
[2016-06-20] MEDS: LACTOBACILLUS RHAMNOSUS GG 1 CAP CAPSULE NG SCH ×2 (08:04→20:57)
[2016-06-20] MEDS: LIPASE/PROTEASE/AMYLASE 1 CAP GT SCH (08:04)
[2016-06-20] MEDS: PANTOPRAZOLE SODIUM 40 MG TAB GT SCH (08:04)
[2016-06-20] MEDS: MULTIVITAMINS,THERAPEUTIC 5 ML UDC GT SCH (08:05)
[2016-06-20] MEDS: OCTREOTIDE ACETATE 50 MCG/ML AMP SUBCUT SCH ×2 (08:05→20:59)
[2016-06-20] MEDS: DILTIAZEM HCL 60 MG TABLET PO SCH ×2 (08:05→20:58)
[2016-06-20] MEDS: CARVEDILOL 6.25 MG TABLET (COREG) PO SCH ×2 (09:00→20:57)
[2016-06-20] MEDS ORDERED: MIDAZOLAM HCL 5 MG/5 ML VIAL IVP PRN (10:30)
[2016-06-20] MEDS: LEVOFLOXACIN 250 MG/D5W 50 ML IV SCH (15:47)
[2016-06-20] MEDS: D5NS 1,000 ML IV SCH (16:14)
[2016-06-20] MEDS ORDERED: BISACODYL 5 MG TABLET.DR (DULCOLAX) PO ONE (17:00)
[2016-06-20] MEDS ORDERED: GOLYTELY / COLYTE SOLUTION 4 LITERS PO ONE (18:00)
[2016-06-20] MEDS: ZOLPIDEM TARTRATE 5 MG TABLET PO SCH (20:57)
[2016-06-20] MEDS: ENOXAPARIN SODIUM 30 MG/0.3 ML SYRINGE SUBCUT SCH (20:58)
[2016-06-21] VITALS (10 sets, daily range): BP systolic 120–165; BP diastolic 72–101; PULSE 89–106; RESP 18–27; TEMP 96.7–97.8; O2SAT 98–100
[2016-06-21] MEDS: IPRATROPIUM BROM 0.5 MG/2.5 ML VIAL.NEB (ATROVENT) INH SCH ×3 (01:31→20:23)
[2016-06-21] MEDS: D5NS 1,000 ML IV SCH (05:37)
[2016-06-21 07:56] LABS: INR 1.1 (0.80-1.20); PROTHROMBIN TIME 12.1 SECS (9.5-12.5)
[2016-06-21] MEDS: DILTIAZEM HCL 60 MG TABLET PO SCH ×2 (09:00→21:26)
[2016-06-21] MEDS: MULTIVITAMINS,THERAPEUTIC 5 ML UDC GT SCH (09:00)
[2016-06-21] MEDS: CARVEDILOL 6.25 MG TABLET (COREG) PO SCH ×2 (09:00→21:27)
[2016-06-21] MEDS: LACTOBACILLUS RHAMNOSUS GG 1 CAP CAPSULE NG SCH ×2 (09:00→21:26)
[2016-06-21] MEDS: PANTOPRAZOLE SODIUM 40 MG TAB GT SCH (09:00)
[2016-06-21] MEDS: OCTREOTIDE ACETATE 50 MCG/ML AMP SUBCUT SCH ×2 (09:00→21:29)
[2016-06-21] MEDS ORDERED: MIDAZOLAM HCL 5 MG/5 ML VIAL ONE (14:53)
[2016-06-21] MEDS ORDERED: fentaNYL CITRATE/PF 100 MCG/2 ML AMP ONE (14:53)
[2016-06-21] MEDS: LEVOFLOXACIN 250 MG/D5W 50 ML IV SCH (16:38)
[2016-06-21] MEDS: MESALAMINE 400 MG CAPSULE.DR GT SCH ×2 (16:39→21:25)
[2016-06-21] MEDS: ENOXAPARIN SODIUM 30 MG/0.3 ML SYRINGE SUBCUT SCH (21:28)
[2016-06-21] MEDS: ZOLPIDEM TARTRATE 5 MG TABLET PO SCH (21:28)
[2016-06-22] MEDS: IPRATROPIUM BROM 0.5 MG/2.5 ML VIAL.NEB (ATROVENT) INH SCH ×4 (02:32→20:37)
[2016-06-22] MEDS ORDERED: TEMAZEPAM 15 MG CAPSULE GT ONE (03:45)
[2016-06-22 05:12] VITALS: BP 136/84; PULSE 91; RESP 18; TEMP 97.8; O2SAT 99
[2016-06-22] MEDS: MESALAMINE 400 MG CAPSULE.DR GT SCH ×4 (09:00→20:54)
[2016-06-22] MEDS: LACTOBACILLUS RHAMNOSUS GG 1 CAP CAPSULE NG SCH ×2 (09:00→20:54)
[2016-06-22] MEDS: PANTOPRAZOLE SODIUM 40 MG TAB GT SCH (09:00)
[2016-06-22] MEDS: DILTIAZEM HCL 60 MG TABLET PO SCH ×2 (09:00→20:55)
[2016-06-22] MEDS: MULTIVITAMINS,THERAPEUTIC 5 ML UDC GT SCH (09:00)
[2016-06-22] MEDS: OCTREOTIDE ACETATE 50 MCG/ML AMP SUBCUT SCH ×2 (09:00→20:56)
[2016-06-22] MEDS: CARVEDILOL 6.25 MG TABLET (COREG) PO SCH ×2 (09:00→20:55)
[2016-06-22 12:00] VITALS: BP 130/81; PULSE 62; RESP 18; TEMP 96.2; O2SAT 89
[2016-06-22 16:00] VITALS: BP 117/80; PULSE 90; RESP 18; TEMP 97.4; O2SAT 100
[2016-06-22] MEDS ORDERED: QUEtiapine FUMARATE 25 MG TABLET GT ONE (16:30)
[2016-06-22] MEDS: LEVOFLOXACIN 250 MG/D5W 50 ML IV SCH (17:17)
[2016-06-22 19:31] VITALS: BP 138/76; PULSE 89; RESP 18; TEMP 97.8; O2SAT 100
[2016-06-22] MEDS: ENOXAPARIN SODIUM 30 MG/0.3 ML SYRINGE SUBCUT SCH (20:55)
[2016-06-22] MEDS: ZOLPIDEM TARTRATE 5 MG TABLET PO SCH (20:55)
[2016-06-22] MEDS: QUEtiapine FUMARATE 25 MG TABLET GT SCH (21:00)
[2016-06-23] VITALS (8 sets, daily range): BP systolic 118–138; BP diastolic 65–90; PULSE 90–115; RESP 16–20; TEMP 96.8–97.9; O2SAT 97–100
[2016-06-23] MEDS: IPRATROPIUM BROM 0.5 MG/2.5 ML VIAL.NEB (ATROVENT) INH SCH ×4 (01:15→19:53)
[2016-06-23] MEDS: NORMAL SALINE 5 ML DISP.SYRIN IVF SCH ×2 (06:07→13:53)
[2016-06-23] MEDS: QUEtiapine FUMARATE 25 MG TABLET GT SCH ×3 (09:00→21:00)
[2016-06-23] MEDS: MULTIVITAMINS,THERAPEUTIC 5 ML UDC GT SCH (09:23)
[2016-06-23] MEDS: LACTOBACILLUS RHAMNOSUS GG 1 CAP CAPSULE NG SCH ×2 (09:24→20:59)
[2016-06-23] MEDS: MESALAMINE 400 MG CAPSULE.DR GT SCH ×4 (09:24→20:59)
[2016-06-23] MEDS: DILTIAZEM HCL 60 MG TABLET PO SCH ×2 (09:24→21:00)
[2016-06-23] MEDS: PANTOPRAZOLE SODIUM 40 MG TAB GT SCH (09:25)
[2016-06-23] MEDS: CARVEDILOL 6.25 MG TABLET (COREG) PO SCH ×2 (09:25→21:00)
[2016-06-23] MEDS: OCTREOTIDE ACETATE 50 MCG/ML AMP SUBCUT SCH ×2 (09:26→21:01)
[2016-06-23 13:42] LABS: BASOPHILS # (AUTO) 0.1 K/uL (0.0-0.2); BASOPHILS % (AUTO) 1.1 % (0.0-2.0); EOSINOPHILS # (AUTO) 0.2 K/uL (0.0-0.4); EOSINOPHILS % (AUTO) 1.8 % (0.0-4.0); HEMOGLOBIN 11.2 g/dL (14.0-18.0); LYMPHOCYTES # (AUTO) 1.6 K/uL (1.0-5.5); LYMPHOCYTES % (AUTO) 12.2 % (20.5-51.5); MEAN CORPUSCULAR HEMOGLOBIN 27 pg (27-31); MEAN CORPUSCULAR HGB CONC 33 % (32-36); MEAN CORPUSCULAR VOLUME 83 fL (79.0-98.0); MONOCYTES # (AUTO) 1.3 K/uL (0.0-1.0); MONOCYTES % (AUTO) 9.9 % (1.7-9.3); PLATELET COUNT (AUTO) 571 K/uL (130-430); RED CELL DISTRIBUTION WIDTH 17.2 % (9.0-15.0); WHITE BLOOD COUNT (AUTO) 13.2 K/uL (4.8-10.8)
[2016-06-23 13:57] LABS: ALBUMIN 2.5 g/dL (3.4-4.8); CALCIUM 9.1 mg/dL (8.4-11.0); CREATININE 1.17 mg/dL (0.55-1.30); POTASSIUM 3.8 mmol/L (3.5-5.1); TOTAL BILIRUBIN 0.3 mg/dL (0.0-1.0); TOTAL PROTEIN, SERUM 8.6 g/dL (6.4-8.3)
[2016-06-23] MEDS: LEVOFLOXACIN 250 MG/D5W 50 ML IV SCH (16:24)
[2016-06-23] MEDS: ZOLPIDEM TARTRATE 5 MG TABLET PO SCH (20:59)
[2016-06-23] MEDS: ENOXAPARIN SODIUM 30 MG/0.3 ML SYRINGE SUBCUT SCH (21:01)
[2016-06-23] MEDS: PIPERACILLIN/TAZO 2.25G/DEX-IS 50 ML IV SCH (21:01)
[2016-06-23] MEDS: D5NS 1,000 ML IV SCH (21:02)
[2016-06-24] VITALS (7 sets, daily range): BP systolic 106–132; BP diastolic 75–87; PULSE 97–107; RESP 15–20; TEMP 96.3–97.9; O2SAT 97–100
[2016-06-24] MEDS: IPRATROPIUM BROM 0.5 MG/2.5 ML VIAL.NEB (ATROVENT) INH SCH ×4 (01:40→19:51)
[2016-06-24] MEDS: D5NS 1,000 ML IV SCH (05:54)
[2016-06-24] MEDS: PIPERACILLIN/TAZO 2.25G/DEX-IS 50 ML IV SCH ×4 (05:54→21:09)
[2016-06-24] MEDS: MULTIVITAMINS,THERAPEUTIC 5 ML UDC GT SCH (09:41)
[2016-06-24] MEDS: LACTOBACILLUS RHAMNOSUS GG 1 CAP CAPSULE NG SCH ×2 (09:41→21:06)
[2016-06-24] MEDS: PANTOPRAZOLE SODIUM 40 MG TAB GT SCH (09:41)
[2016-06-24] MEDS: OCTREOTIDE ACETATE 50 MCG/ML AMP SUBCUT SCH (09:41)
[2016-06-24] MEDS: MESALAMINE 400 MG CAPSULE.DR GT SCH ×4 (09:41→21:05)
[2016-06-24] MEDS: DILTIAZEM HCL 60 MG TABLET PO SCH ×2 (09:44→21:07)
[2016-06-24] MEDS: CARVEDILOL 6.25 MG TABLET (COREG) PO SCH ×2 (09:46→21:07)
[2016-06-24 09:48] LABS: BASOPHILS # (AUTO) 0.1 K/uL (0.0-0.2); BASOPHILS % (AUTO) 1.2 % (0.0-2.0); EOSINOPHILS # (AUTO) 0.5 K/uL (0.0-0.4); EOSINOPHILS % (AUTO) 4.5 % (0.0-4.0); HEMATOCRIT 32.7 % (36-54); HEMOGLOBIN 10.3 g/dL (14.0-18.0); LYMPHOCYTES # (AUTO) 1.7 K/uL (1.0-5.5); LYMPHOCYTES % (AUTO) 17.1 % (20.5-51.5); MEAN CORPUSCULAR HEMOGLOBIN 27 pg (27-31); MEAN CORPUSCULAR HGB CONC 32 % (32-36); MEAN CORPUSCULAR VOLUME 84 fL (79.0-98.0); MONOCYTES # (AUTO) 0.7 K/uL (0.0-1.0); MONOCYTES % (AUTO) 7.2 % (1.7-9.3); NEUTROPHILS # (AUTO) 7.1 K/uL (1.8-7.7); RED BLOOD CELL COUNT(AUTO) 3.88 MIL/uL (4.2-6.2); RED CELL DISTRIBUTION WIDTH 17.1 % (9.0-15.0); WHITE BLOOD COUNT (AUTO) 10.1 K/uL (4.8-10.8)
[2016-06-24 09:57] LABS: PLATELET COUNT (AUTO) 483 K/uL (130-430)
[2016-06-24] MEDS: ZOLPIDEM TARTRATE 5 MG TABLET PO SCH (21:06)
[2016-06-24] MEDS: ENOXAPARIN SODIUM 30 MG/0.3 ML SYRINGE SUBCUT SCH (21:07)
[2016-06-25] VITALS (9 sets, daily range): BP systolic 86–132; BP diastolic 56–78; PULSE 72–107; RESP 16–19; TEMP 97.6–98.6; O2SAT 96–100
[2016-06-25] MEDS: IPRATROPIUM BROM 0.5 MG/2.5 ML VIAL.NEB (ATROVENT) INH SCH ×3 (01:21→19:59)
[2016-06-25] MEDS: PIPERACILLIN/TAZO 2.25G/DEX-IS 50 ML IV SCH ×3 (05:35→21:28)
[2016-06-25] MEDS: MULTIVITAMINS,THERAPEUTIC 5 ML UDC GT SCH (08:33)
[2016-06-25] MEDS: LACTOBACILLUS RHAMNOSUS GG 1 CAP CAPSULE NG SCH ×2 (08:34→20:53)
[2016-06-25] MEDS: CARVEDILOL 6.25 MG TABLET (COREG) PO SCH ×2 (08:34→20:54)
[2016-06-25] MEDS: PANTOPRAZOLE SODIUM 40 MG TAB GT SCH (08:34)
[2016-06-25] MEDS: DILTIAZEM HCL 60 MG TABLET PO SCH ×2 (08:35→20:54)
[2016-06-25] MEDS: MESALAMINE 400 MG CAPSULE.DR GT SCH ×4 (08:36→20:53)
[2016-06-25] MEDS ORDERED: NS 500 ML IV ONE (15:15)
[2016-06-25] MEDS: ZOLPIDEM TARTRATE 5 MG TABLET PO SCH (20:53)
[2016-06-25] MEDS: ENOXAPARIN SODIUM 30 MG/0.3 ML SYRINGE SUBCUT SCH (20:53)
[2016-06-26] VITALS (8 sets, daily range): BP systolic 105–124; BP diastolic 57–83; PULSE 70–107; RESP 16–18; TEMP 96.6–98.7; O2SAT 98–100
[2016-06-26] MEDS: IPRATROPIUM BROM 0.5 MG/2.5 ML VIAL.NEB (ATROVENT) INH SCH ×4 (00:40→21:12)
[2016-06-26 07:56] LABS: BASOPHILS # (AUTO) 0.1 K/uL (0.0-0.2); EOSINOPHILS # (AUTO) 0.4 K/uL (0.0-0.4); EOSINOPHILS % (AUTO) 4.4 % (0.0-4.0); HEMATOCRIT 29.2 % (36-54); HEMOGLOBIN 9.9 g/dL (14.0-18.0); LYMPHOCYTES # (AUTO) 1.8 K/uL (1.0-5.5); LYMPHOCYTES % (AUTO) 19.7 % (20.5-51.5); MEAN CORPUSCULAR HEMOGLOBIN 28 pg (27-31); MEAN CORPUSCULAR HGB CONC 34 % (32-36); MEAN CORPUSCULAR VOLUME 84 fL (79.0-98.0); MONOCYTES # (AUTO) 0.7 K/uL (0.0-1.0); MONOCYTES % (AUTO) 7.6 % (1.7-9.3); NEUTROPHILS # (AUTO) 6.3 K/uL (1.8-7.7); NEUTROPHILS % (AUTO) 67.3 % (40.0-70.0); PLATELET COUNT (AUTO) 347 K/uL (130-430); RED BLOOD CELL COUNT(AUTO) 3.47 MIL/uL (4.2-6.2); RED CELL DISTRIBUTION WIDTH 16.3 % (9.0-15.0); WHITE BLOOD COUNT (AUTO) 9.3 K/uL (4.8-10.8)
[2016-06-26 08:23] LABS: ALBUMIN 2.1 g/dL (3.4-4.8); CALCIUM 8.8 mg/dL (8.4-11.0); CREATININE 1.1 mg/dL (0.55-1.30); POTASSIUM 3.3 mmol/L (3.5-5.1); TOTAL BILIRUBIN 0.2 mg/dL (0.0-1.0); TOTAL PROTEIN, SERUM 7.4 g/dL (6.4-8.3)
[2016-06-26] MEDS: COMMUNICATION ORDER XX SCH (09:00)
[2016-06-26] MEDS: PIPERACILLIN/TAZO 2.25G/DEX-IS 50 ML IV SCH (09:28)
[2016-06-26] MEDS: MESALAMINE 400 MG CAPSULE.DR GT SCH ×4 (09:29→22:03)
[2016-06-26] MEDS: DILTIAZEM HCL 60 MG TABLET PO SCH ×2 (09:30→22:03)
[2016-06-26] MEDS: PANTOPRAZOLE SODIUM 40 MG TAB GT SCH (09:30)
[2016-06-26] MEDS: CARVEDILOL 6.25 MG TABLET (COREG) PO SCH ×2 (09:30→22:03)
[2016-06-26] MEDS: MULTIVITAMINS,THERAPEUTIC 5 ML UDC GT SCH (09:30)
[2016-06-26] MEDS: FISH OIL GT SCH (09:30)
[2016-06-26] MEDS: LACTOBACILLUS RHAMNOSUS GG 1 CAP CAPSULE NG SCH ×2 (09:30→22:03)
[2016-06-26] MEDS ORDERED: POTASSIUM CHLORIDE 20 MEQ TAB.PRT.SR PO ONE (11:15)
[2016-06-26] MEDS: MORPHINE 2 MG/ML INJ. SYRINGE IVP PRN ×2 (11:15→17:13)
[2016-06-26] MEDS ORDERED: DIATR MEGLU/DIATRIZ SOD 30 ML SOLUTION PO ONE (18:37)
[2016-06-26] MEDS ORDERED: metroNIDAZOLE 500 mg/NS 200 ML IV ONE (21:59)
[2016-06-26] MEDS: methylPREDNISolone SOD SUCC 40 MG/ML VIAL IVP SCH (22:02)
[2016-06-26] MEDS: ZOLPIDEM TARTRATE 5 MG TABLET PO SCH (22:03)
[2016-06-26] MEDS: ENOXAPARIN SODIUM 30 MG/0.3 ML SYRINGE SUBCUT SCH (22:04)
[2016-06-26] MEDS: metroNIDAZOLE 500 mg/NS 100 ML IV SCH (22:04)
[2016-06-27] MEDS: MORPHINE 2 MG/ML INJ. SYRINGE IVP PRN ×2 (01:04→23:32)
[2016-06-27] MEDS: IPRATROPIUM BROM 0.5 MG/2.5 ML VIAL.NEB (ATROVENT) INH SCH ×5 (01:38→20:05)
[2016-06-27 04:50] VITALS: BP 106/61; PULSE 94; RESP 17; TEMP 98; O2SAT 98
[2016-06-27] MEDS: metroNIDAZOLE 500 mg/NS 100 ML IV SCH ×3 (05:16→22:32)
[2016-06-27 08:10] VITALS: BP 120/81; PULSE 89; RESP 18; TEMP 98.3; O2SAT 99
[2016-06-27] MEDS: LACTOBACILLUS RHAMNOSUS GG 1 CAP CAPSULE NG SCH ×2 (09:48→21:11)
[2016-06-27] MEDS: MESALAMINE 400 MG CAPSULE.DR GT SCH ×4 (09:48→21:09)
[2016-06-27] MEDS: PANTOPRAZOLE SODIUM 40 MG TAB GT SCH (09:48)
[2016-06-27] MEDS: DILTIAZEM HCL 60 MG TABLET PO SCH ×2 (09:49→21:10)
[2016-06-27] MEDS: methylPREDNISolone SOD SUCC 40 MG/ML VIAL IVP SCH ×2 (09:50→21:09)
[2016-06-27] MEDS: CARVEDILOL 6.25 MG TABLET (COREG) PO SCH ×2 (09:50→21:10)
[2016-06-27] MEDS: MULTIVITAMINS,THERAPEUTIC 5 ML UDC GT SCH (09:50)
[2016-06-27] MEDS: FISH OIL GT SCH (09:50)
[2016-06-27 12:26] VITALS: BP 110/74; PULSE 87; RESP 18; TEMP 97.2; O2SAT 97
[2016-06-27 16:01] VITALS: BP 111/76; PULSE 85; RESP 18; TEMP 96.6; O2SAT 99
[2016-06-27 20:47] VITALS: BP 115/66; PULSE 83; RESP 18; TEMP 97.1; O2SAT 99
[2016-06-27] MEDS: ZOLPIDEM TARTRATE 5 MG TABLET PO SCH (21:11)
[2016-06-27] MEDS: ENOXAPARIN SODIUM 30 MG/0.3 ML SYRINGE SUBCUT SCH (21:11)
[2016-06-27] MEDS: 0.45% NACL 1,000 ML IV SCH (22:48)
[2016-06-28 00:03] VITALS: BP 117/68; PULSE 91; RESP 18; TEMP 96.8; O2SAT 98
[2016-06-28] MEDS: IPRATROPIUM BROM 0.5 MG/2.5 ML VIAL.NEB (ATROVENT) INH SCH ×4 (01:21→20:04)
[2016-06-28 04:03] VITALS: BP 118/69; PULSE 82; RESP 18; TEMP 98.4; O2SAT 97
[2016-06-28] MEDS: metroNIDAZOLE 500 mg/NS 100 ML IV SCH ×3 (05:26→21:26)
[2016-06-28 07:57] VITALS: BP 133/83; PULSE 95; RESP 18; TEMP 98.7; O2SAT 98
[2016-06-28 08:08] LABS: ALBUMIN 2.5 g/dL (3.4-4.8); CALCIUM 8.8 mg/dL (8.4-11.0); CREATININE 0.9 mg/dL (0.55-1.30); POTASSIUM 3.4 mmol/L (3.5-5.1); TOTAL BILIRUBIN 0.2 mg/dL (0.0-1.0); TOTAL PROTEIN, SERUM 7.1 g/dL (6.4-8.3)
[2016-06-28] MEDS: COMMUNICATION ORDER XX SCH (09:00)
[2016-06-28] MEDS: MULTIVITAMINS,THERAPEUTIC 5 ML UDC GT SCH (09:08)
[2016-06-28] MEDS: DILTIAZEM HCL 60 MG TABLET PO SCH ×2 (09:09→21:26)
[2016-06-28] MEDS: MESALAMINE 400 MG CAPSULE.DR GT SCH ×4 (09:10→21:24)
[2016-06-28] MEDS: LACTOBACILLUS RHAMNOSUS GG 1 CAP CAPSULE NG SCH ×2 (09:10→21:25)
[2016-06-28] MEDS: PANTOPRAZOLE SODIUM 40 MG TAB GT SCH (09:11)
[2016-06-28] MEDS: CARVEDILOL 6.25 MG TABLET (COREG) PO SCH ×2 (09:11→21:25)
[2016-06-28] MEDS: methylPREDNISolone SOD SUCC 40 MG/ML VIAL IVP SCH ×2 (09:11→21:21)
[2016-06-28] MEDS: FISH OIL GT SCH (09:14)
[2016-06-28 12:05] VITALS: BP 132/78; PULSE 90; RESP 19; TEMP 97; O2SAT 97
[2016-06-28] MEDS: 0.45% NACL 1,000 ML IV SCH (16:36)
[2016-06-28 16:38] VITALS: BP 121/81; PULSE 82; RESP 18; TEMP 97.9; O2SAT 99
[2016-06-28 21:00] VITALS: BP 138/90; PULSE 88; RESP 18; TEMP 97.8; O2SAT 100
[2016-06-28] MEDS: ENOXAPARIN SODIUM 30 MG/0.3 ML SYRINGE SUBCUT SCH (21:21)
[2016-06-28] MEDS ORDERED: POTASSIUM CHLORIDE 20 MEQ TAB.PRT.SR GT ONE (22:45)
[2016-06-28] MEDS: ZOLPIDEM TARTRATE 5 MG TABLET PO PRN (22:58)
[2016-06-29] VITALS (7 sets, daily range): BP systolic 110–140; BP diastolic 70–80; PULSE 70–89; RESP 16–18; TEMP 97.2–98.6; O2SAT 96–100
[2016-06-29] MEDS: IPRATROPIUM BROM 0.5 MG/2.5 ML VIAL.NEB (ATROVENT) INH SCH ×4 (01:29→20:06)
[2016-06-29] MEDS: metroNIDAZOLE 500 mg/NS 100 ML IV SCH ×3 (05:59→21:50)
[2016-06-29] MEDS: 0.45% NACL 1,000 ML IV SCH ×2 (05:59→22:14)
[2016-06-29] MEDS: COMMUNICATION ORDER XX SCH (09:00)
[2016-06-29] MEDS: methylPREDNISolone SOD SUCC 40 MG/ML VIAL IVP SCH ×2 (10:35→21:43)
[2016-06-29] MEDS: MULTIVITAMINS,THERAPEUTIC 5 ML UDC GT SCH (10:36)
[2016-06-29] MEDS: CARVEDILOL 6.25 MG TABLET (COREG) PO SCH ×2 (10:36→21:47)
[2016-06-29] MEDS: MESALAMINE 400 MG CAPSULE.DR GT SCH ×4 (10:36→21:48)
[2016-06-29] MEDS: PANTOPRAZOLE SODIUM 40 MG TAB GT SCH (10:37)
[2016-06-29] MEDS: DILTIAZEM HCL 60 MG TABLET PO SCH ×2 (10:37→21:46)
[2016-06-29] MEDS: LACTOBACILLUS RHAMNOSUS GG 1 CAP CAPSULE NG SCH ×2 (10:43→21:44)
[2016-06-29] MEDS: FISH OIL GT SCH (10:43)
[2016-06-29 15:35] LABS: BASOPHILS % (AUTO) 0.1 % (0.0-2.0); HEMATOCRIT 31.7 % (36-54); HEMOGLOBIN 10.3 g/dL (14.0-18.0); LYMPHOCYTES % (AUTO) 9.5 % (20.5-51.5); MEAN CORPUSCULAR HEMOGLOBIN 27 pg (27-31); MEAN CORPUSCULAR HGB CONC 33 % (32-36); MEAN CORPUSCULAR VOLUME 84 fL (79.0-98.0); MONOCYTES # (AUTO) 0.2 K/uL (0.0-1.0); MONOCYTES % (AUTO) 2.1 % (1.7-9.3); NEUTROPHILS # (AUTO) 9.4 K/uL (1.8-7.7); NEUTROPHILS % (AUTO) 88.3 % (40.0-70.0); PLATELET COUNT (AUTO) 347 K/uL (130-430); RED BLOOD CELL COUNT(AUTO) 3.76 MIL/uL (4.2-6.2); RED CELL DISTRIBUTION WIDTH 15.7 % (9.0-15.0); WHITE BLOOD COUNT (AUTO) 10.6 K/uL (4.8-10.8)
[2016-06-29] MEDS: MORPHINE 2 MG/ML INJ. SYRINGE IVP PRN (18:37)
[2016-06-29 19:46] LABS: BILIRUBIN,URINE NEGATIVE (NEGATIVE); BLOOD, URINE NEGATIVE (NEGATIVE); COLOR,URINE YELLOW (YELLOW); GLUCOSE,URINE NEGATIVE (NEGATIVE); KETONES,URINE NEGATIVE (NEGATIVE); NITRITE, URINE POSITIVE (NEGATIVE); PH,URINE 6.5 (5.0-8.0); PROTEIN URINE NEGATIVE (NEGATIVE); UROBILINOGEN,URINE 0.2 (0.2-1.0)
[2016-06-29 20:02] LABS: CLARITY/URINE HAZY (CLEAR); LEUKOCYTE ESTERASE ,URINE TRACE (NEGATIVE)
[2016-06-29 20:03] LABS: RBC,URINE 0-3 /HPF (0-3)
[2016-06-29 20:04] LABS: BACTERIA,URINE MANY /HPF (None Seen); MUCUS,URINE None Seen /LPF (None Seen)
[2016-06-29] MEDS: ENOXAPARIN SODIUM 30 MG/0.3 ML SYRINGE SUBCUT SCH (21:48)
[2016-06-29] MEDS: ZOLPIDEM TARTRATE 5 MG TABLET PO PRN (21:49)
[2016-06-30] VITALS: BP 124/78; PULSE 78; RESP 17; TEMP 98.2; O2SAT 100
[2016-06-30] MEDS: MORPHINE 2 MG/ML INJ. SYRINGE IVP PRN ×2 (00:23→18:05)
[2016-06-30] MEDS: IPRATROPIUM BROM 0.5 MG/2.5 ML VIAL.NEB (ATROVENT) INH SCH ×4 (01:00→19:47)
[2016-06-30 04:15] VITALS: BP 128/76; PULSE 76; RESP 17; TEMP 98.6; O2SAT 98
[2016-06-30] MEDS: metroNIDAZOLE 500 mg/NS 100 ML IV SCH ×3 (05:51→21:38)
[2016-06-30 07:30] VITALS: BP 119/80; PULSE 76; RESP 17; TEMP 97.9; O2SAT 100
[2016-06-30] MEDS: COMMUNICATION ORDER XX SCH (09:00)
[2016-06-30] MEDS: methylPREDNISolone SOD SUCC 40 MG/ML VIAL IVP SCH ×2 (09:36→21:25)
[2016-06-30] MEDS: MESALAMINE 400 MG CAPSULE.DR GT SCH ×4 (09:36→21:24)
[2016-06-30] MEDS: PANTOPRAZOLE SODIUM 40 MG TAB GT SCH (09:36)
[2016-06-30] MEDS: CARVEDILOL 6.25 MG TABLET (COREG) PO SCH ×2 (09:37→21:31)
[2016-06-30] MEDS: LACTOBACILLUS RHAMNOSUS GG 1 CAP CAPSULE NG SCH ×2 (09:37→21:31)
[2016-06-30] MEDS: DILTIAZEM HCL 60 MG TABLET PO SCH ×2 (09:37→21:32)
[2016-06-30] MEDS: MULTIVITAMINS,THERAPEUTIC 5 ML UDC GT SCH (10:17)
[2016-06-30] MEDS: FISH OIL GT SCH (10:19)
[2016-06-30 12:44] VITALS: BP 112/71; PULSE 65; RESP 16; TEMP 97.6; O2SAT 100
[2016-06-30 16:19] VITALS: BP 142/72; PULSE 81; RESP 17; TEMP 97.3; O2SAT 100
[2016-06-30] MEDS: 0.45% NACL 1,000 ML IV SCH (16:34)
[2016-06-30] MEDS: ACETAMINOPHEN 650 MG/20.3 ML UDC GT PRN (21:24)
[2016-06-30] MEDS: ZOLPIDEM TARTRATE 5 MG TABLET PO PRN (21:25)
[2016-06-30] MEDS: ENOXAPARIN SODIUM 30 MG/0.3 ML SYRINGE SUBCUT SCH (21:25)
[2016-07-01 00:13] VITALS: BP 132/94; PULSE 79; RESP 18; TEMP 98.6; O2SAT 95
[2016-07-01] MEDS: MORPHINE 2 MG/ML INJ. SYRINGE IVP PRN (01:05)
[2016-07-01] MEDS: IPRATROPIUM BROM 0.5 MG/2.5 ML VIAL.NEB (ATROVENT) INH SCH ×4 (01:10→19:58)
[2016-07-01 05:25] VITALS: BP 128/65; PULSE 85; RESP 18; TEMP 98.4; O2SAT 95
[2016-07-01] MEDS: metroNIDAZOLE 500 mg/NS 100 ML IV SCH ×3 (05:37→21:38)
[2016-07-01 07:39] VITALS: BP 119/86; PULSE 71; RESP 18; TEMP 97; O2SAT 100
[2016-07-01] MEDS: MULTIVITAMINS,THERAPEUTIC 5 ML UDC GT SCH (08:49)
[2016-07-01] MEDS: DILTIAZEM HCL 60 MG TABLET PO SCH ×2 (08:49→20:57)
[2016-07-01] MEDS: MESALAMINE 400 MG CAPSULE.DR GT SCH ×4 (08:50→18:47)
[2016-07-01] MEDS: LACTOBACILLUS RHAMNOSUS GG 1 CAP CAPSULE NG SCH ×2 (08:50→20:58)
[2016-07-01] MEDS: PANTOPRAZOLE SODIUM 40 MG TAB GT SCH (08:50)
[2016-07-01] MEDS: CARVEDILOL 6.25 MG TABLET (COREG) PO SCH ×2 (08:50→20:57)
[2016-07-01] MEDS: methylPREDNISolone SOD SUCC 40 MG/ML VIAL IVP SCH ×2 (08:52→20:56)
[2016-07-01] MEDS: FISH OIL GT SCH (08:52)
[2016-07-01] MEDS: 0.45% NACL 1,000 ML IV SCH ×2 (08:59→20:58)
[2016-07-01] MEDS: ACETAMINOPHEN 650 MG/20.3 ML UDC GT PRN ×2 (11:59→22:37)
[2016-07-01 12:31] VITALS: BP 126/72; PULSE 65; RESP 16; TEMP 97.3; O2SAT 100
[2016-07-01 16:17] VITALS: BP 123/81; PULSE 63; RESP 17; TEMP 98.7; O2SAT 99
[2016-07-01 20:49] VITALS: BP 124/81; PULSE 84; RESP 18; TEMP 97; O2SAT 98
[2016-07-01] MEDS: ENOXAPARIN SODIUM 30 MG/0.3 ML SYRINGE SUBCUT SCH (20:56)
[2016-07-01] MEDS: ZOLPIDEM TARTRATE 5 MG TABLET PO PRN (20:57)
[2016-07-02] VITALS (7 sets, daily range): BP systolic 119–161; BP diastolic 58–101; PULSE 83–106; RESP 16–20; TEMP 96.2–98.6; O2SAT 96–100
[2016-07-02] MEDS: MORPHINE 2 MG/ML INJ. SYRINGE IVP PRN ×3 (00:07→13:29)
[2016-07-02] MEDS: IPRATROPIUM BROM 0.5 MG/2.5 ML VIAL.NEB (ATROVENT) INH SCH ×4 (02:13→20:08)
[2016-07-02] MEDS: LORazepam 2 MG/ML VIAL IVP PRN (02:40)
[2016-07-02] MEDS: metroNIDAZOLE 500 mg/NS 100 ML IV SCH ×3 (06:07→21:13)
[2016-07-02 07:40] LABS: RED CELL DISTRIBUTION WIDTH 16.3 % (9.0-15.0)
[2016-07-02 07:44] LABS: MEAN CORPUSCULAR HEMOGLOBIN 27 pg (27-31); MEAN CORPUSCULAR HGB CONC 33 % (32-36); MEAN CORPUSCULAR VOLUME 83 fL (79.0-98.0)
[2016-07-02 07:47] LABS: HEMATOCRIT 33.5 % (36-54); HEMOGLOBIN 11.1 g/dL (14.0-18.0); PLATELET COUNT (AUTO) 352 K/uL (130-430); RED BLOOD CELL COUNT(AUTO) 4.06 MIL/uL (4.2-6.2); WHITE BLOOD COUNT (AUTO) 16.7 K/uL (4.8-10.8)
[2016-07-02 07:51] LABS: CALCIUM 8.5 mg/dL (8.4-11.0); CREATININE 0.69 mg/dL (0.55-1.30); POTASSIUM 3.8 mmol/L (3.5-5.1)
[2016-07-02 08:05] LABS: BAND % (MANUAL) 2 % (0-6); LYMPHOCYTES % (MANUAL) 14 % (20-46)
[2016-07-02 08:06] LABS: BASOPHILS % (MANUAL) 0 % (0-2); EOSINOPHILS % (MANUAL) 0 % (0-7); METAMYELOCYTES % 1 % (0-0); MONOCYTES % (MANUAL) 20 % (0-11)
[2016-07-02] MEDS: methylPREDNISolone SOD SUCC 40 MG/ML VIAL IVP SCH ×2 (08:47→21:16)
[2016-07-02] MEDS: MULTIVITAMINS,THERAPEUTIC 5 ML UDC GT SCH (08:47)
[2016-07-02] MEDS: LACTOBACILLUS RHAMNOSUS GG 1 CAP CAPSULE NG SCH ×2 (08:47→21:15)
[2016-07-02] MEDS: DILTIAZEM HCL 60 MG TABLET PO SCH ×2 (08:48→21:20)
[2016-07-02] MEDS: PANTOPRAZOLE SODIUM 40 MG TAB GT SCH (08:48)
[2016-07-02] MEDS: MESALAMINE 400 MG CAPSULE.DR GT SCH ×4 (08:49→21:12)
[2016-07-02] MEDS: FISH OIL GT SCH (08:50)
[2016-07-02] MEDS: COMMUNICATION ORDER XX SCH (09:00)
[2016-07-02] MEDS: CARVEDILOL 6.25 MG TABLET (COREG) PO SCH ×2 (09:50→21:21)
[2016-07-02] MEDS: ACETAMINOPHEN 650 MG/20.3 ML UDC GT PRN (12:01)
[2016-07-02] MEDS ORDERED: COMMUNICATION ORDER XX ONE (16:30)
[2016-07-02] MEDS ORDERED: DIATR MEGLU/DIATRIZ SOD 30 ML SOLUTION PO ONE (17:02)
[2016-07-02] MEDS: QUEtiapine FUMARATE 25 MG TABLET PO SCH (21:00)
[2016-07-02] MEDS: LACTASE 3000 UNIT TABLET GT SCH (21:16)
[2016-07-02] MEDS: ENOXAPARIN SODIUM 30 MG/0.3 ML SYRINGE SUBCUT SCH (21:21)
[2016-07-02] MEDS: ZOLPIDEM TARTRATE 5 MG TABLET PO PRN (21:27)
[2016-07-02] MEDS: 0.45% NACL 1,000 ML IV SCH (21:29)
[2016-07-03] VITALS (7 sets, daily range): BP systolic 107–145; BP diastolic 69–93; PULSE 69–93; RESP 16–20; TEMP 97.6–98.6; O2SAT 85–98
[2016-07-03] MEDS: MORPHINE 2 MG/ML INJ. SYRINGE IVP PRN (00:42)
[2016-07-03] MEDS: IPRATROPIUM BROM 0.5 MG/2.5 ML VIAL.NEB (ATROVENT) INH SCH ×4 (01:19→19:39)
[2016-07-03] MEDS: metroNIDAZOLE 500 mg/NS 100 ML IV SCH (05:29)
[2016-07-03] MEDS: LACTASE 3000 UNIT TABLET GT SCH ×3 (08:17→21:49)
[2016-07-03] MEDS: MESALAMINE 400 MG CAPSULE.DR GT SCH ×4 (08:17→21:42)
[2016-07-03] MEDS: LACTOBACILLUS RHAMNOSUS GG 1 CAP CAPSULE NG SCH ×2 (08:18→21:42)
[2016-07-03] MEDS: MULTIVITAMINS,THERAPEUTIC 5 ML UDC GT SCH (08:18)
[2016-07-03] MEDS: PANTOPRAZOLE SODIUM 40 MG TAB GT SCH (08:18)
[2016-07-03] MEDS: FISH OIL GT SCH (08:18)
[2016-07-03] MEDS: CARVEDILOL 6.25 MG TABLET (COREG) PO SCH ×2 (08:19→21:43)
[2016-07-03] MEDS: DILTIAZEM HCL 60 MG TABLET PO SCH ×2 (08:19→21:44)
[2016-07-03] MEDS: QUEtiapine FUMARATE 25 MG TABLET PO SCH ×2 (08:20→21:00)
[2016-07-03] MEDS: COMMUNICATION ORDER XX SCH (09:00)
[2016-07-03] MEDS: methylPREDNISolone SOD SUCC 40 MG/ML VIAL IVP SCH (09:24)
[2016-07-03] MEDS: FAMOTIDINE 20 MG TABLET GT SCH (21:42)
[2016-07-03] MEDS: ENOXAPARIN SODIUM 30 MG/0.3 ML SYRINGE SUBCUT SCH (21:44)
[2016-07-03] MEDS: methylPREDNISolone SOD SUCC/PF 62.5 MG/ML VIAL IVP SCH (21:45)
[2016-07-04] MEDS: IPRATROPIUM BROM 0.5 MG/2.5 ML VIAL.NEB (ATROVENT) INH SCH ×4 (01:51→21:13)
[2016-07-04 02:01] VITALS: BP 136/66; PULSE 77; RESP 19; TEMP 97.2; O2SAT 91
[2016-07-04 02:02] VITALS: BP 126/85; PULSE 82; RESP 20; TEMP 97.7; O2SAT 97
[2016-07-04] MEDS: 0.45% NACL 1,000 ML IV SCH (06:06)
[2016-07-04 06:07] VITALS: BP 131/88; PULSE 87; RESP 19; TEMP 96.4; O2SAT 96
[2016-07-04] MEDS: methylPREDNISolone SOD SUCC/PF 62.5 MG/ML VIAL IVP SCH ×3 (06:07→21:15)
[2016-07-04 07:58] LABS: BASOPHILS % (AUTO) 0.2 % (0.0-2.0); HEMATOCRIT 32.9 % (36-54); HEMOGLOBIN 10.8 g/dL (14.0-18.0); LYMPHOCYTES % (AUTO) 9.6 % (20.5-51.5); MEAN CORPUSCULAR HEMOGLOBIN 27 pg (27-31); MEAN CORPUSCULAR HGB CONC 33 % (32-36); MEAN CORPUSCULAR VOLUME 83 fL (79.0-98.0); MONOCYTES # (AUTO) 0.2 K/uL (0.0-1.0); MONOCYTES % (AUTO) 2.1 % (1.7-9.3); NEUTROPHILS # (AUTO) 9.7 K/uL (1.8-7.7); NEUTROPHILS % (AUTO) 88.1 % (40.0-70.0); PLATELET COUNT (AUTO) 343 K/uL (130-430); RED BLOOD CELL COUNT(AUTO) 3.96 MIL/uL (4.2-6.2); RED CELL DISTRIBUTION WIDTH 16.1 % (9.0-15.0); WHITE BLOOD COUNT (AUTO) 10.9 K/uL (4.8-10.8)
[2016-07-04] MEDS: QUEtiapine FUMARATE 25 MG TABLET PO SCH ×2 (08:46→21:00)
[2016-07-04] MEDS: LACTASE 3000 UNIT TABLET GT SCH ×3 (08:48→21:19)
[2016-07-04] MEDS: CARVEDILOL 6.25 MG TABLET (COREG) PO SCH ×2 (08:49→21:00)
[2016-07-04] MEDS: FAMOTIDINE 20 MG TABLET GT SCH ×2 (08:49→21:08)
[2016-07-04] MEDS: LACTOBACILLUS RHAMNOSUS GG 1 CAP CAPSULE NG SCH ×2 (08:49→21:10)
[2016-07-04] MEDS: DILTIAZEM HCL 60 MG TABLET PO SCH ×2 (08:49→21:09)
[2016-07-04] MEDS: MULTIVITAMINS,THERAPEUTIC 5 ML UDC GT SCH (08:49)
[2016-07-04] MEDS: FISH OIL GT SCH (08:50)
[2016-07-04] MEDS: MESALAMINE 400 MG CAPSULE.DR GT SCH ×3 (08:50→21:15)
[2016-07-04] MEDS: COMMUNICATION ORDER XX SCH (09:00)
[2016-07-04 11:40] LABS: CALCIUM 8.9 mg/dL (8.4-11.0); CREATININE 0.69 mg/dL (0.55-1.30); POTASSIUM 4.6 mmol/L (3.5-5.1)
[2016-07-04 12:00] VITALS: BP 111/70; PULSE 71; RESP 18; TEMP 97.7; O2SAT 98
[2016-07-04 16:00] VITALS: BP 112/68; PULSE 68; RESP 18; TEMP 97.1; O2SAT 97
[2016-07-04 20:00] VITALS: BP 102/62; PULSE 66; RESP 18; TEMP 97.1; O2SAT 98
[2016-07-04] MEDS: ZOLPIDEM TARTRATE 5 MG TABLET PO PRN (21:08)
[2016-07-05 01:00] VITALS: BP 129/80; PULSE 84; RESP 18; TEMP 98.1; O2SAT 95
[2016-07-05] MEDS: IPRATROPIUM BROM 0.5 MG/2.5 ML VIAL.NEB (ATROVENT) INH SCH ×4 (01:42→20:48)
[2016-07-05] MEDS: ENOXAPARIN SODIUM 30 MG/0.3 ML SYRINGE SUBCUT SCH ×2 (05:37→20:59)
[2016-07-05] MEDS: methylPREDNISolone SOD SUCC/PF 62.5 MG/ML VIAL IVP SCH ×3 (05:38→20:59)
[2016-07-05] MEDS: 0.45% NACL 1,000 ML IV SCH ×2 (05:38→21:21)
[2016-07-05 06:04] VITALS: BP 112/72; PULSE 66; RESP 18; TEMP 97.5; O2SAT 98
[2016-07-05 08:00] VITALS: BP 114/70; PULSE 69; RESP 19; TEMP 96.9; O2SAT 98
[2016-07-05] MEDS: QUEtiapine FUMARATE 25 MG TABLET PO SCH ×2 (09:00→20:59)
[2016-07-05] MEDS: LACTASE 3000 UNIT TABLET GT SCH ×3 (09:54→21:02)
[2016-07-05] MEDS: LACTOBACILLUS RHAMNOSUS GG 1 CAP CAPSULE NG SCH ×2 (09:54→21:01)
[2016-07-05] MEDS: MULTIVITAMINS,THERAPEUTIC 5 ML UDC GT SCH (09:55)
[2016-07-05] MEDS: FAMOTIDINE 20 MG TABLET GT SCH ×2 (09:55→21:01)
[2016-07-05] MEDS: MESALAMINE 400 MG CAPSULE.DR GT SCH ×3 (09:55→21:03)
[2016-07-05] MEDS: CARVEDILOL 6.25 MG TABLET (COREG) PO SCH ×2 (09:55→21:00)
[2016-07-05] MEDS: DILTIAZEM HCL 60 MG TABLET PO SCH ×2 (09:56→21:02)
[2016-07-05] MEDS: FISH OIL GT SCH (09:56)
[2016-07-05 12:00] VITALS: BP 101/73; PULSE 63; RESP 18; TEMP 97.8; O2SAT 97
[2016-07-05 16:00] VITALS: BP 119/69; PULSE 61; RESP 18; TEMP 97.9; O2SAT 99
[2016-07-05 16:35] VITALS: BP 101/73; PULSE 63
[2016-07-05] MEDS: ZOLPIDEM TARTRATE 5 MG TABLET PO PRN (21:01)
[2016-07-06 01:08] VITALS: BP 109/70; PULSE 75; RESP 18; TEMP 97.8; O2SAT 97
[2016-07-06 04:03] VITALS: BP 111/69; PULSE 56; RESP 18; TEMP 97.8; O2SAT 97
[2016-07-06] MEDS: methylPREDNISolone SOD SUCC/PF 62.5 MG/ML VIAL IVP SCH ×3 (05:45→21:21)
[2016-07-06] MEDS: IPRATROPIUM BROM 0.5 MG/2.5 ML VIAL.NEB (ATROVENT) INH SCH ×3 (07:49→20:59)
[2016-07-06 08:00] VITALS: BP 118/69; PULSE 58; RESP 17; TEMP 97.6; O2SAT 98
[2016-07-06] MEDS: LACTASE 3000 UNIT TABLET GT SCH ×3 (08:47→21:00)
[2016-07-06] MEDS: MULTIVITAMINS,THERAPEUTIC 5 ML UDC GT SCH (08:47)
[2016-07-06] MEDS: FAMOTIDINE 20 MG TABLET GT SCH ×2 (08:47→20:56)
[2016-07-06] MEDS: LACTOBACILLUS RHAMNOSUS GG 1 CAP CAPSULE NG SCH ×2 (08:47→20:57)
[2016-07-06] MEDS: MESALAMINE 400 MG CAPSULE.DR GT SCH ×3 (08:48→20:59)
[2016-07-06] MEDS: FISH OIL GT SCH (08:49)
[2016-07-06] MEDS: CARVEDILOL 6.25 MG TABLET (COREG) PO SCH ×2 (09:00→20:57)
[2016-07-06] MEDS: QUEtiapine FUMARATE 25 MG TABLET PO SCH ×2 (09:00→20:58)
[2016-07-06] MEDS: 0.45% NACL 1,000 ML IV SCH ×2 (11:41→22:45)
[2016-07-06 12:40] VITALS: BP 125/75; PULSE 71; RESP 16; TEMP 97.7; O2SAT 98
[2016-07-06] MEDS: LOPERAMIDE HCL 2 MG CAPSULE GT PRN (14:15)
[2016-07-06 18:00] VITALS: BP 124/81; PULSE 68; RESP 16; TEMP 97.9; O2SAT 99
[2016-07-06 19:00] VITALS: BP 124/76; PULSE 72; RESP 18; TEMP 97.8; O2SAT 98
[2016-07-06] MEDS: ZOLPIDEM TARTRATE 5 MG TABLET PO PRN (20:56)
[2016-07-06] MEDS: ENOXAPARIN SODIUM 30 MG/0.3 ML SYRINGE SUBCUT SCH (20:57)
[2016-07-07 00:34] VITALS: BP 128/79; PULSE 76; RESP 20; TEMP 98; O2SAT 97
[2016-07-07] MEDS: IPRATROPIUM BROM 0.5 MG/2.5 ML VIAL.NEB (ATROVENT) INH SCH ×4 (01:00→20:32)
[2016-07-07] MEDS: methylPREDNISolone SOD SUCC/PF 62.5 MG/ML VIAL IVP SCH ×3 (06:10→21:37)
[2016-07-07 06:34] VITALS: BP 143/58; PULSE 85; RESP 18; TEMP 98.5; O2SAT 99
[2016-07-07 08:00] VITALS: BP 136/83; PULSE 70; RESP 17; TEMP 97.6; O2SAT 98
[2016-07-07] MEDS: QUEtiapine FUMARATE 25 MG TABLET PO SCH ×2 (09:00→20:27)
[2016-07-07] MEDS: MESALAMINE 400 MG CAPSULE.DR GT SCH ×3 (09:29→20:27)
[2016-07-07] MEDS: LACTASE 3000 UNIT TABLET GT SCH ×3 (09:29→20:26)
[2016-07-07] MEDS: MULTIVITAMINS,THERAPEUTIC 5 ML UDC GT SCH (09:29)
[2016-07-07] MEDS: FAMOTIDINE 20 MG TABLET GT SCH ×2 (09:30→20:21)
[2016-07-07] MEDS: LACTOBACILLUS RHAMNOSUS GG 1 CAP CAPSULE NG SCH ×2 (09:30→20:21)
[2016-07-07] MEDS: CARVEDILOL 6.25 MG TABLET (COREG) PO SCH ×2 (09:31→20:22)
[2016-07-07] MEDS: FISH OIL GT SCH (09:32)
[2016-07-07 10:07] LABS: HEMATOCRIT 32.6 % (36-54); HEMOGLOBIN 10.8 g/dL (14.0-18.0); MEAN CORPUSCULAR HEMOGLOBIN 27 pg (27-31); MEAN CORPUSCULAR HGB CONC 33 % (32-36); MEAN CORPUSCULAR VOLUME 82 fL (79.0-98.0); RED BLOOD CELL COUNT(AUTO) 3.97 MIL/uL (4.2-6.2); RED CELL DISTRIBUTION WIDTH 16.3 % (9.0-15.0); WHITE BLOOD COUNT (AUTO) 21.7 K/uL (4.8-10.8)
[2016-07-07 10:30] LABS: PLATELET COUNT (AUTO) 339 K/uL (130-430)
[2016-07-07 10:33] LABS: BAND % (MANUAL) 4 % (0-6); BASOPHILS % (MANUAL) 0 % (0-2); CALCIUM 8.4 mg/dL (8.4-11.0); CREATININE 0.73 mg/dL (0.55-1.30); EOSINOPHILS % (MANUAL) 0 % (0-7); LYMPHOCYTES % (MANUAL) 3 % (20-46); MONOCYTES % (MANUAL) 2 % (0-11); POTASSIUM 3.7 mmol/L (3.5-5.1)
[2016-07-07 10:38] LABS: ALBUMIN 2.4 g/dL (3.4-4.8); TOTAL BILIRUBIN 0.2 mg/dL (0.0-1.0); TOTAL PROTEIN, SERUM 6.3 g/dL (6.4-8.3)
[2016-07-07] MEDS: 0.45% NACL 1,000 ML IV SCH ×2 (12:05→18:01)
[2016-07-07 12:43] VITALS: BP 121/73; PULSE 78; RESP 18; TEMP 97.5; O2SAT 97
[2016-07-07 16:43] VITALS: BP 124/80; PULSE 65; RESP 17; TEMP 97.4; O2SAT 98
[2016-07-07] MEDS: LOPERAMIDE HCL 2 MG CAPSULE GT PRN (18:55)
[2016-07-07] MEDS: SIMETHICONE 80 MG TAB.CHEW PO PRN (20:21)
[2016-07-07] MEDS: ENOXAPARIN SODIUM 30 MG/0.3 ML SYRINGE SUBCUT SCH (20:21)
[2016-07-07] MEDS: HYDROmorphone 1 MG INJ. 1 MG/ML AMPUL IVP PRN (20:24)
[2016-07-07] MEDS: metroNIDAZOLE 500 mg/NS 100 ML IV SCH (21:38)
[2016-07-07] MEDS: ZOLPIDEM TARTRATE 5 MG TABLET PO PRN (23:08)
[2016-07-07 23:44] VITALS: BP 118/76; PULSE 73; RESP 18; TEMP 97.4; O2SAT 98
[2016-07-08] VITALS (7 sets, daily range): BP systolic 78–142; BP diastolic 72–81; PULSE 64–107; RESP 18–20; TEMP 97.5–98.7; O2SAT 92–97
[2016-07-08] MEDS: 0.45% NACL 1,000 ML IV SCH ×2 (00:32→20:13)
[2016-07-08] MEDS: IPRATROPIUM BROM 0.5 MG/2.5 ML VIAL.NEB (ATROVENT) INH SCH ×4 (01:00→19:52)
[2016-07-08] MEDS: LORazepam 2 MG/ML VIAL IVP PRN ×2 (03:23→18:22)
[2016-07-08] MEDS: methylPREDNISolone SOD SUCC/PF 62.5 MG/ML VIAL IVP SCH ×3 (06:18→21:53)
[2016-07-08] MEDS: metroNIDAZOLE 500 mg/NS 100 ML IV SCH ×3 (06:18→21:53)
[2016-07-08] MEDS: QUEtiapine FUMARATE 25 MG TABLET PO SCH ×2 (09:00→20:30)
[2016-07-08] MEDS: FAMOTIDINE 20 MG TABLET GT SCH ×2 (10:01→20:30)
[2016-07-08] MEDS: MULTIVITAMINS,THERAPEUTIC 5 ML UDC GT SCH (10:01)
[2016-07-08] MEDS: LACTOBACILLUS RHAMNOSUS GG 1 CAP CAPSULE NG SCH ×2 (10:01→20:29)
[2016-07-08] MEDS: LACTASE 3000 UNIT TABLET GT SCH ×3 (10:02→20:30)
[2016-07-08] MEDS: MESALAMINE 400 MG CAPSULE.DR GT SCH ×3 (10:02→20:30)
[2016-07-08] MEDS: FISH OIL GT SCH (10:04)
[2016-07-08] MEDS: CARVEDILOL 6.25 MG TABLET (COREG) PO SCH ×2 (10:09→20:29)
[2016-07-08] MEDS: SIMETHICONE 80 MG TAB.CHEW PO PRN (16:15)
[2016-07-08] MEDS: LOPERAMIDE HCL 2 MG CAPSULE GT PRN (16:15)
[2016-07-08] MEDS: ENOXAPARIN SODIUM 30 MG/0.3 ML SYRINGE SUBCUT SCH (20:30)
[2016-07-08] MEDS ORDERED: ZOLPIDEM TARTRATE 5 MG TABLET PO PRN (21:45)
[2016-07-09] VITALS (7 sets, daily range): BP systolic 12–130; BP diastolic 63–77; PULSE 61–130; RESP 16–19; TEMP 97.4–98.8; O2SAT 95–98
[2016-07-09] MEDS ORDERED: ZOLPIDEM TARTRATE 5 MG TABLET GT PRN (01:00)
[2016-07-09] MEDS ORDERED: ZOLPIDEM TARTRATE 5 MG TABLET PO ONE (01:00)
[2016-07-09] MEDS: SIMETHICONE 80 MG TAB.CHEW PO PRN (01:11)
[2016-07-09] MEDS: IPRATROPIUM BROM 0.5 MG/2.5 ML VIAL.NEB (ATROVENT) INH SCH ×2 (01:40→20:03)
[2016-07-09] MEDS: HYDROmorphone 1 MG INJ. 1 MG/ML AMPUL IVP PRN ×2 (03:30→14:28)
[2016-07-09] MEDS: 0.45% NACL 1,000 ML IV SCH ×2 (04:05→13:37)
[2016-07-09] MEDS: methylPREDNISolone SOD SUCC/PF 62.5 MG/ML VIAL IVP SCH ×3 (05:56→22:04)
[2016-07-09] MEDS: metroNIDAZOLE 500 mg/NS 100 ML IV SCH ×3 (05:57→22:04)
[2016-07-09] MEDS: LACTOBACILLUS RHAMNOSUS GG 1 CAP CAPSULE NG SCH ×2 (08:53→21:36)
[2016-07-09] MEDS: FAMOTIDINE 20 MG TABLET GT SCH ×2 (08:53→21:36)
[2016-07-09] MEDS: MESALAMINE 400 MG CAPSULE.DR GT SCH ×3 (08:53→21:37)
[2016-07-09] MEDS: MULTIVITAMINS,THERAPEUTIC 5 ML UDC GT SCH (08:53)
[2016-07-09] MEDS: LACTASE 3000 UNIT TABLET GT SCH ×3 (08:54→21:37)
[2016-07-09] MEDS: CARVEDILOL 6.25 MG TABLET (COREG) PO SCH ×2 (08:54→21:36)
[2016-07-09] MEDS: FISH OIL GT SCH (08:55)
[2016-07-09] MEDS: QUEtiapine FUMARATE 25 MG TABLET PO SCH ×2 (09:00→21:37)
[2016-07-09] MEDS: LOPERAMIDE HCL 2 MG CAPSULE GT PRN ×2 (14:22→22:03)
[2016-07-09] MEDS ORDERED: CARVEDILOL 12.5 MG TABLET (COREG) PO SCH (21:00)
[2016-07-09] MEDS: ENOXAPARIN SODIUM 30 MG/0.3 ML SYRINGE SUBCUT SCH (21:38)
[2016-07-10] VITALS: BP 108/69; PULSE 71; RESP 18; TEMP 98.2; O2SAT 98
[2016-07-10] MEDS: IPRATROPIUM BROM 0.5 MG/2.5 ML VIAL.NEB (ATROVENT) INH SCH ×4 (01:00→19:58)
[2016-07-10] MEDS ORDERED: INSULIN REGULAR, HUMAN 100 UNITS/ML, 10 ML VIAL SUBCUT ONE ×2 (04:00→08:45)
[2016-07-10 04:26] VITALS: BP 98/59; PULSE 66; RESP 18; TEMP 96.5; O2SAT 99
[2016-07-10] MEDS: metroNIDAZOLE 500 mg/NS 100 ML IV SCH ×3 (06:25→21:09)
[2016-07-10] MEDS: methylPREDNISolone SOD SUCC/PF 62.5 MG/ML VIAL IVP SCH (06:26)
[2016-07-10] MEDS: 0.45% NACL 1,000 ML IV SCH ×2 (06:32→21:33)
[2016-07-10 06:58] LABS: BASOPHILS % (AUTO) 0.2 % (0.0-2.0); HEMOGLOBIN 10.3 g/dL (14.0-18.0); LYMPHOCYTES # (AUTO) 0.8 K/uL (1.0-5.5); LYMPHOCYTES % (AUTO) 8.3 % (20.5-51.5); MEAN CORPUSCULAR HEMOGLOBIN 27 pg (27-31); MEAN CORPUSCULAR HGB CONC 33 % (32-36); MEAN CORPUSCULAR VOLUME 82 fL (79.0-98.0); MONOCYTES # (AUTO) 0.7 K/uL (0.0-1.0); MONOCYTES % (AUTO) 7.5 % (1.7-9.3); PLATELET COUNT (AUTO) 250 K/uL (130-430); RED BLOOD CELL COUNT(AUTO) 3.78 MIL/uL (4.2-6.2); RED CELL DISTRIBUTION WIDTH 16.1 % (9.0-15.0); WHITE BLOOD COUNT (AUTO) 9.5 K/uL (4.8-10.8)
[2016-07-10 07:11] LABS: ALBUMIN 1.9 g/dL (3.4-4.8); CALCIUM 8.2 mg/dL (8.4-11.0); CREATININE 0.66 mg/dL (0.55-1.30); POTASSIUM 3.8 mmol/L (3.5-5.1); TOTAL BILIRUBIN 0.2 mg/dL (0.0-1.0); TOTAL PROTEIN, SERUM 5.6 g/dL (6.4-8.3)
[2016-07-10 08:16] VITALS: BP 98/62; PULSE 77; RESP 18; TEMP 97; O2SAT 98
[2016-07-10] MEDS: QUEtiapine FUMARATE 25 MG TABLET PO SCH ×2 (09:00→21:00)
[2016-07-10] MEDS: CARVEDILOL 6.25 MG TABLET (COREG) PO SCH ×3 (09:00→21:11)
[2016-07-10] MEDS: FAMOTIDINE 20 MG TABLET GT SCH ×2 (09:55→21:11)
[2016-07-10] MEDS: FISH OIL GT SCH (09:56)
[2016-07-10] MEDS: MESALAMINE 400 MG CAPSULE.DR GT SCH ×4 (09:56→21:13)
[2016-07-10] MEDS: MULTIVITAMINS,THERAPEUTIC 5 ML UDC GT SCH (09:56)
[2016-07-10] MEDS: LACTOBACILLUS RHAMNOSUS GG 1 CAP CAPSULE NG SCH ×2 (09:56→21:10)
[2016-07-10] MEDS: LACTASE 3000 UNIT TABLET GT SCH ×4 (09:56→21:14)
[2016-07-10] MEDS: LOPERAMIDE HCL 2 MG CAPSULE GT PRN (11:51)
[2016-07-10 12:04] VITALS: BP 110/76; PULSE 68; RESP 16; TEMP 97.5; O2SAT 99
[2016-07-10] MEDS ORDERED: BARIUM SULFATE 135 ML SUSP.RECON (E-Z-HD) PO ONE (13:19)
[2016-07-10 16:09] VITALS: BP 118/70; PULSE 62; RESP 16; TEMP 97.4; O2SAT 98
[2016-07-10 20:06] VITALS: BP 119/97; PULSE 94; RESP 16; TEMP 98.8; O2SAT 97
[2016-07-10] MEDS: ZOLPIDEM TARTRATE 5 MG TABLET PO PRN (21:10)
[2016-07-10] MEDS: ENOXAPARIN SODIUM 30 MG/0.3 ML SYRINGE SUBCUT SCH (21:12)
[2016-07-11] VITALS (7 sets, daily range): BP systolic 96–117; BP diastolic 62–79; PULSE 80–104; RESP 18–20; TEMP 97.3–98.6; O2SAT 79–98
[2016-07-11] MEDS: IPRATROPIUM BROM 0.5 MG/2.5 ML VIAL.NEB (ATROVENT) INH SCH ×4 (00:24→20:29)
[2016-07-11] MEDS: LORazepam 2 MG/ML VIAL IVP PRN ×2 (00:48→04:58)
[2016-07-11] MEDS: metroNIDAZOLE 500 mg/NS 100 ML IV SCH ×3 (06:24→21:25)
[2016-07-11 08:39] LABS: BASOPHILS % (AUTO) 0.2 % (0.0-2.0); EOSINOPHILS # (AUTO) 0.2 K/uL (0.0-0.4); EOSINOPHILS % (AUTO) 1.5 % (0.0-4.0); HEMOGLOBIN 10.8 g/dL (14.0-18.0); LYMPHOCYTES # (AUTO) 1.8 K/uL (1.0-5.5); LYMPHOCYTES % (AUTO) 15.2 % (20.5-51.5); MEAN CORPUSCULAR HEMOGLOBIN 27 pg (27-31); MEAN CORPUSCULAR HGB CONC 33 % (32-36); MEAN CORPUSCULAR VOLUME 83 fL (79.0-98.0); MONOCYTES # (AUTO) 0.9 K/uL (0.0-1.0); MONOCYTES % (AUTO) 7.3 % (1.7-9.3); NEUTROPHILS # (AUTO) 9.1 K/uL (1.8-7.7); NEUTROPHILS % (AUTO) 75.8 % (40.0-70.0); PLATELET COUNT (AUTO) 280 K/uL (130-430); RED BLOOD CELL COUNT(AUTO) 3.98 MIL/uL (4.2-6.2); RED CELL DISTRIBUTION WIDTH 16.1 % (9.0-15.0)
[2016-07-11 08:48] LABS: C-REACTIVE PROTEIN QUANT 1.2 mg/dL (0-0.5); CALCIUM 7.8 mg/dL (8.4-11.0); CREATININE 0.61 mg/dL (0.55-1.30); POTASSIUM 3.4 mmol/L (3.5-5.1)
[2016-07-11] MEDS: QUEtiapine FUMARATE 25 MG TABLET PO SCH ×2 (09:00→20:14)
[2016-07-11] MEDS: LACTOBACILLUS RHAMNOSUS GG 1 CAP CAPSULE NG SCH ×2 (09:01→20:14)
[2016-07-11] MEDS: MULTIVITAMINS,THERAPEUTIC 5 ML UDC GT SCH (09:01)
[2016-07-11] MEDS: FAMOTIDINE 20 MG TABLET GT SCH ×2 (09:01→20:14)
[2016-07-11] MEDS: PREDNISONE 20 MG TABLET PO SCH (09:02)
[2016-07-11] MEDS: CARVEDILOL 6.25 MG TABLET (COREG) PO SCH ×2 (09:03→20:17)
[2016-07-11] MEDS: MESALAMINE 400 MG CAPSULE.DR GT SCH ×3 (09:04→20:17)
[2016-07-11] MEDS: LACTASE 3000 UNIT TABLET GT SCH ×3 (09:05→20:18)
[2016-07-11] MEDS: FISH OIL GT SCH (09:05)
[2016-07-11 09:15] LABS: ERYTHROCYTE SEDIMENTATION RATE 20 MM/HR (0-15)
[2016-07-11] MEDS: 0.45% NACL 1,000 ML IV SCH ×2 (16:00→21:25)
[2016-07-11] MEDS: ENOXAPARIN SODIUM 30 MG/0.3 ML SYRINGE SUBCUT SCH (20:14)
[2016-07-11] MEDS ORDERED: QUEtiapine FUMARATE 25 MG TABLET GT PRN (20:15)
[2016-07-11] MEDS: ZOLPIDEM TARTRATE 5 MG TABLET PO PRN (22:20)
[2016-07-12] MEDS: IPRATROPIUM BROM 0.5 MG/2.5 ML VIAL.NEB (ATROVENT) INH SCH ×4 (01:00→20:44)
[2016-07-12 01:10] VITALS: BP 96/70; PULSE 91; RESP 17; TEMP 97.8; O2SAT 98
[2016-07-12 03:30] VITALS: BP 113/72; PULSE 104; RESP 20; TEMP 97.9; O2SAT 94
[2016-07-12] MEDS: LORazepam 2 MG/ML VIAL IVP PRN (03:50)
[2016-07-12] MEDS: metroNIDAZOLE 500 mg/NS 100 ML IV SCH (05:28)
[2016-07-12 07:51] VITALS: BP 106/69; PULSE 101; RESP 18; TEMP 98.1; O2SAT 98
[2016-07-12] MEDS: PREDNISONE 20 MG TABLET PO SCH (08:23)
[2016-07-12] MEDS: CARVEDILOL 6.25 MG TABLET (COREG) PO SCH ×2 (08:24→21:02)
[2016-07-12] MEDS: MESALAMINE 400 MG CAPSULE.DR GT SCH ×3 (08:24→21:03)
[2016-07-12] MEDS: LACTOBACILLUS RHAMNOSUS GG 1 CAP CAPSULE NG SCH ×2 (08:24→21:02)
[2016-07-12] MEDS: FAMOTIDINE 20 MG TABLET GT SCH ×2 (08:24→21:01)
[2016-07-12] MEDS: LACTASE 3000 UNIT TABLET GT SCH ×3 (08:25→21:03)
[2016-07-12] MEDS: MULTIVITAMINS,THERAPEUTIC 5 ML UDC GT SCH (08:25)
[2016-07-12] MEDS: FISH OIL GT SCH (08:25)
[2016-07-12] MEDS: QUEtiapine FUMARATE 25 MG TABLET PO SCH ×2 (08:26→21:02)
[2016-07-12 12:49] VITALS: BP 116/64; PULSE 100; RESP 17; TEMP 98.3; O2SAT 98
[2016-07-12] MEDS: NACL 0.9% 1,000 ML IV SCH (14:42)
[2016-07-12] MEDS ORDERED: MENTHOL/ZINC OXIDE 113 GM OINT. TP PRN (15:45)
[2016-07-12] MEDS: LOPERAMIDE HCL 2 MG CAPSULE GT PRN (16:02)
[2016-07-12 18:18] VITALS: BP 114/74; PULSE 89; RESP 17; TEMP 97.8; O2SAT 98
[2016-07-12 20:00] VITALS: BP 130/88; PULSE 108; RESP 24; TEMP 97.7; O2SAT 99
[2016-07-12] MEDS: ENOXAPARIN SODIUM 30 MG/0.3 ML SYRINGE SUBCUT SCH (21:01)
[2016-07-12] MEDS: LOPERAMIDE HCL 2 MG CAPSULE GT SCH (21:02)
[2016-07-12] MEDS: ZOLPIDEM TARTRATE 5 MG TABLET PO PRN (23:22)
[2016-07-13 00:33] VITALS: BP 119/72; PULSE 71; RESP 18; TEMP 97; O2SAT 96
[2016-07-13] MEDS: IPRATROPIUM BROM 0.5 MG/2.5 ML VIAL.NEB (ATROVENT) INH SCH ×4 (01:00→20:35)
[2016-07-13 04:00] VITALS: BP 116/69; PULSE 66; RESP 17; TEMP 97.2; O2SAT 95
[2016-07-13] MEDS: NACL 0.9% 1,000 ML IV SCH ×2 (05:00→22:30)
[2016-07-13] MEDS: FISH OIL GT SCH (09:38)
[2016-07-13] MEDS: MESALAMINE 400 MG CAPSULE.DR GT SCH ×3 (09:39→20:47)
[2016-07-13] MEDS: QUEtiapine FUMARATE 25 MG TABLET PO SCH ×2 (09:40→20:38)
[2016-07-13] MEDS: MULTIVITAMINS,THERAPEUTIC 5 ML UDC GT SCH (09:40)
[2016-07-13] MEDS: FAMOTIDINE 20 MG TABLET GT SCH ×2 (09:40→20:39)
[2016-07-13] MEDS: LOPERAMIDE HCL 2 MG CAPSULE GT SCH ×3 (09:40→20:39)
[2016-07-13] MEDS: CARVEDILOL 6.25 MG TABLET (COREG) PO SCH ×2 (09:41→20:40)
[2016-07-13] MEDS: LACTASE 3000 UNIT TABLET GT SCH ×3 (09:41→20:42)
[2016-07-13] MEDS: PREDNISONE 20 MG TABLET PO SCH (09:41)
[2016-07-13] MEDS: COMMUNICATION ORDER XX SCH (09:42)
[2016-07-13 12:04] VITALS: BP 92/57; PULSE 87; RESP 20; TEMP 99.2; O2SAT 96
[2016-07-13 16:05] VITALS: BP 111/73; PULSE 98; RESP 18; TEMP 97.6; O2SAT 98
[2016-07-13 20:11] VITALS: BP 121/64; PULSE 94; RESP 20; TEMP 97.4; O2SAT 96
[2016-07-13] MEDS: ENOXAPARIN SODIUM 30 MG/0.3 ML SYRINGE SUBCUT SCH (20:46)
[2016-07-14] VITALS (8 sets, daily range): BP systolic 97–117; BP diastolic 57–71; PULSE 80–102; RESP 14–20; TEMP 97.1–97.9; O2SAT 97–99
[2016-07-14] MEDS: ZOLPIDEM TARTRATE 5 MG TABLET PO PRN (00:57)
[2016-07-14] MEDS: IPRATROPIUM BROM 0.5 MG/2.5 ML VIAL.NEB (ATROVENT) INH SCH ×4 (01:00→21:13)
[2016-07-14] MEDS: FISH OIL GT SCH (08:48)
[2016-07-14] MEDS: MESALAMINE 400 MG CAPSULE.DR GT SCH ×3 (08:49→20:37)
[2016-07-14] MEDS: MULTIVITAMINS,THERAPEUTIC 5 ML UDC GT SCH (08:49)
[2016-07-14] MEDS: PREDNISONE 20 MG TABLET PO SCH (08:50)
[2016-07-14] MEDS: LOPERAMIDE HCL 2 MG CAPSULE GT SCH ×3 (08:50→20:36)
[2016-07-14] MEDS: CITALOPRAM HYDROBROMIDE 20 MG TABLET PO SCH (08:50)
[2016-07-14] MEDS: FAMOTIDINE 20 MG TABLET GT SCH ×2 (08:50→20:36)
[2016-07-14] MEDS: LACTASE 3000 UNIT TABLET GT SCH ×3 (08:51→20:37)
[2016-07-14] MEDS ORDERED: ESCITALOPRAM OXALATE 10 MG TABLET PO SCH (09:00)
[2016-07-14] MEDS: CARVEDILOL 6.25 MG TABLET (COREG) PO SCH ×2 (09:00→20:37)
[2016-07-14] MEDS: NACL 0.9% 1,000 ML IV SCH (15:45)
[2016-07-14] MEDS: QUEtiapine FUMARATE 25 MG TABLET PO SCH (20:37)
[2016-07-14] MEDS: ENOXAPARIN SODIUM 30 MG/0.3 ML SYRINGE SUBCUT SCH (20:38)
[2016-07-15] VITALS (7 sets, daily range): BP systolic 102–135; BP diastolic 64–76; PULSE 82–107; RESP 16–21; TEMP 97.2–98.3; O2SAT 87–98
[2016-07-15] MEDS: IPRATROPIUM BROM 0.5 MG/2.5 ML VIAL.NEB (ATROVENT) INH SCH ×4 (01:00→19:39)
[2016-07-15] MEDS: ZOLPIDEM TARTRATE 5 MG TABLET PO PRN ×2 (01:05→22:08)
[2016-07-15] MEDS: PREDNISONE 20 MG TABLET PO SCH (09:00)
[2016-07-15] MEDS: CARVEDILOL 6.25 MG TABLET (COREG) PO SCH ×2 (09:00→20:15)
[2016-07-15] MEDS: FAMOTIDINE 20 MG TABLET GT SCH ×2 (10:13→20:15)
[2016-07-15] MEDS: CITALOPRAM HYDROBROMIDE 20 MG TABLET PO SCH (10:13)
[2016-07-15] MEDS: CHOLESTYRAMINE/SUCROSE 4 GM/PACKET PO SCH ×3 (10:14→20:16)
[2016-07-15] MEDS: FISH OIL GT SCH (10:14)
[2016-07-15] MEDS: LACTASE 3000 UNIT TABLET GT SCH ×3 (10:15→20:16)
[2016-07-15] MEDS: MULTIVITAMINS,THERAPEUTIC 5 ML UDC GT SCH (10:16)
[2016-07-15] MEDS: MESALAMINE 400 MG CAPSULE.DR GT SCH ×3 (10:17→20:16)
[2016-07-15] MEDS: NACL 0.9% 1,000 ML IV SCH (12:43)
[2016-07-15] MEDS: QUEtiapine FUMARATE 25 MG TABLET PO SCH (20:15)
[2016-07-15] MEDS: ENOXAPARIN SODIUM 30 MG/0.3 ML SYRINGE SUBCUT SCH (20:16)
[2016-07-16 00:55] VITALS: BP 100/57; PULSE 95; RESP 18; TEMP 98.7; O2SAT 94
[2016-07-16] MEDS: NACL 0.9% 1,000 ML IV SCH (06:30)
[2016-07-16] MEDS: IPRATROPIUM BROM 0.5 MG/2.5 ML VIAL.NEB (ATROVENT) INH SCH ×3 (07:00→19:52)
[2016-07-16 07:32] LABS: BASOPHILS % (AUTO) 0.1 % (0.0-2.0); EOSINOPHILS # (AUTO) 0.2 K/uL (0.0-0.4); EOSINOPHILS % (AUTO) 2.8 % (0.0-4.0); HEMATOCRIT 26.2 % (36-54); HEMOGLOBIN 8.7 g/dL (14.0-18.0); LYMPHOCYTES # (AUTO) 2.2 K/uL (1.0-5.5); LYMPHOCYTES % (AUTO) 26.4 % (20.5-51.5); MEAN CORPUSCULAR HEMOGLOBIN 27 pg (27-31); MEAN CORPUSCULAR HGB CONC 33 % (32-36); MEAN CORPUSCULAR VOLUME 83 fL (79.0-98.0); MONOCYTES # (AUTO) 0.9 K/uL (0.0-1.0); MONOCYTES % (AUTO) 10.8 % (1.7-9.3); NEUTROPHILS # (AUTO) 5.2 K/uL (1.8-7.7); NEUTROPHILS % (AUTO) 59.9 % (40.0-70.0); PLATELET COUNT (AUTO) 278 K/uL (130-430); RED BLOOD CELL COUNT(AUTO) 3.16 MIL/uL (4.2-6.2); RED CELL DISTRIBUTION WIDTH 16.5 % (9.0-15.0); WHITE BLOOD COUNT (AUTO) 8.5 K/uL (4.8-10.8)
[2016-07-16 07:42] LABS: INR 0.9 (0.80-1.20)
[2016-07-16 07:44] LABS: ALBUMIN 1.8 g/dL (3.4-4.8); CREATININE 0.41 mg/dL (0.55-1.30); POTASSIUM 3.5 mmol/L (3.5-5.1); TOTAL BILIRUBIN 0.2 mg/dL (0.0-1.0); TOTAL PROTEIN, SERUM 5.3 g/dL (6.4-8.3)
[2016-07-16 08:19] VITALS: BP 148/83; PULSE 91; RESP 18; TEMP 97.6; O2SAT 98
[2016-07-16] MEDS: CHOLESTYRAMINE/SUCROSE 4 GM/PACKET PO SCH ×3 (08:48→21:05)
[2016-07-16] MEDS: LACTASE 3000 UNIT TABLET GT SCH ×3 (08:49→21:05)
[2016-07-16] MEDS: CARVEDILOL 6.25 MG TABLET (COREG) PO SCH ×2 (08:49→21:04)
[2016-07-16] MEDS: FAMOTIDINE 20 MG TABLET GT SCH ×2 (08:49→21:04)
[2016-07-16] MEDS: MESALAMINE 400 MG CAPSULE.DR GT SCH ×3 (08:50→21:05)
[2016-07-16] MEDS: FISH OIL GT SCH (08:50)
[2016-07-16] MEDS: CITALOPRAM HYDROBROMIDE 20 MG TABLET PO SCH (08:51)
[2016-07-16] MEDS: PREDNISONE 20 MG TABLET PO SCH (08:51)
[2016-07-16] MEDS: MULTIVITAMINS,THERAPEUTIC 5 ML UDC GT SCH (08:51)
[2016-07-16 12:04] VITALS: BP 128/68; PULSE 89; RESP 18; TEMP 98.2; O2SAT 97
[2016-07-16 16:10] VITALS: BP 145/86; PULSE 89; RESP 18; TEMP 97.2; O2SAT 97
[2016-07-16 20:00] VITALS: BP 140/74; PULSE 85; RESP 19; TEMP 97.6; O2SAT 98
[2016-07-16] MEDS: ENOXAPARIN SODIUM 30 MG/0.3 ML SYRINGE SUBCUT SCH (21:04)
[2016-07-16] MEDS: QUEtiapine FUMARATE 25 MG TABLET PO SCH (21:09)
[2016-07-16] MEDS: ZOLPIDEM TARTRATE 5 MG TABLET PO PRN (22:54)
[2016-07-17] VITALS: BP 106/66; PULSE 93; RESP 18; TEMP 98.2; O2SAT 97
[2016-07-17] MEDS: NACL 0.9% 1,000 ML IV SCH ×2 (00:50→21:56)
[2016-07-17] MEDS: IPRATROPIUM BROM 0.5 MG/2.5 ML VIAL.NEB (ATROVENT) INH SCH ×4 (01:00→19:23)
[2016-07-17 04:27] VITALS: BP 110/70; PULSE 95; RESP 18; TEMP 98.6; O2SAT 98
[2016-07-17 08:00] VITALS: BP 117/71; PULSE 87; RESP 17; TEMP 98.1; O2SAT 97
[2016-07-17] MEDS: FAMOTIDINE 20 MG TABLET GT SCH ×2 (09:00→21:29)
[2016-07-17] MEDS: MULTIVITAMINS,THERAPEUTIC 5 ML UDC GT SCH (09:00)
[2016-07-17] MEDS: MESALAMINE 400 MG CAPSULE.DR GT SCH ×3 (09:00→21:31)
[2016-07-17] MEDS: CHOLESTYRAMINE/SUCROSE 4 GM/PACKET PO SCH ×3 (09:00→21:30)
[2016-07-17] MEDS: FISH OIL GT SCH (09:00)
[2016-07-17] MEDS: CITALOPRAM HYDROBROMIDE 20 MG TABLET PO SCH (09:00)
[2016-07-17] MEDS: CARVEDILOL 6.25 MG TABLET (COREG) PO SCH ×2 (09:00→21:29)
[2016-07-17] MEDS: LACTASE 3000 UNIT TABLET GT SCH ×3 (09:00→21:30)
[2016-07-17] MEDS: PREDNISONE 20 MG TABLET PO SCH (09:00)
[2016-07-17 12:40] VITALS: BP 121/71; PULSE 99; RESP 18; TEMP 98.2; O2SAT 98
[2016-07-17] MEDS: LORazepam 2 MG/ML VIAL IVP PRN (13:28)
[2016-07-17 16:00] VITALS: BP 102/50; PULSE 103; RESP 16; TEMP 99.1; O2SAT 96
[2016-07-17 20:00] VITALS: BP 109/71; PULSE 110; RESP 18; TEMP 98.4; O2SAT 97
[2016-07-17] MEDS: QUEtiapine FUMARATE 25 MG TABLET PO SCH (21:28)
[2016-07-17] MEDS: ENOXAPARIN SODIUM 30 MG/0.3 ML SYRINGE SUBCUT SCH (21:30)
[2016-07-17] MEDS: ZOLPIDEM TARTRATE 5 MG TABLET PO PRN (22:40)
[2016-07-18 01:18] VITALS: BP 114/71; PULSE 99; RESP 18; TEMP 99; O2SAT 95
[2016-07-18 04:00] VITALS: BP 116/66; PULSE 104; RESP 17; TEMP 98.7; O2SAT 96
[2016-07-18] MEDS: IPRATROPIUM BROM 0.5 MG/2.5 ML VIAL.NEB (ATROVENT) INH SCH ×3 (08:25→20:02)
[2016-07-18 08:30] VITALS: BP 100/63; PULSE 92; RESP 18; TEMP 97.2; O2SAT 99
[2016-07-18] MEDS: CHOLESTYRAMINE/SUCROSE 4 GM/PACKET PO SCH ×3 (09:00→20:40)
[2016-07-18] MEDS: LACTASE 3000 UNIT TABLET GT SCH ×3 (09:00→20:41)
[2016-07-18] MEDS: FISH OIL GT SCH (09:00)
[2016-07-18] MEDS: CARVEDILOL 6.25 MG TABLET (COREG) PO SCH ×2 (09:00→20:40)
[2016-07-18] MEDS: CITALOPRAM HYDROBROMIDE 20 MG TABLET PO SCH (09:00)
[2016-07-18] MEDS: MULTIVITAMINS,THERAPEUTIC 5 ML UDC GT SCH (09:00)
[2016-07-18] MEDS: MESALAMINE 400 MG CAPSULE.DR GT SCH ×3 (09:00→20:41)
[2016-07-18] MEDS: PREDNISONE 20 MG TABLET PO SCH (09:00)
[2016-07-18] MEDS: FAMOTIDINE 20 MG TABLET GT SCH ×2 (09:00→20:40)
[2016-07-18 16:00] VITALS: BP 104/62; PULSE 86; RESP 18; TEMP 97.6; O2SAT 98
[2016-07-18] MEDS: NACL 0.9% 1,000 ML IV SCH (16:00)
[2016-07-18 19:00] VITALS: BP 116/72; PULSE 90; RESP 18; TEMP 97.5; O2SAT 98
[2016-07-18] MEDS: ZOLPIDEM TARTRATE 5 MG TABLET PO PRN ×2 (20:40→23:57)
[2016-07-18] MEDS: ENOXAPARIN SODIUM 30 MG/0.3 ML SYRINGE SUBCUT SCH (20:42)
[2016-07-18] MEDS: QUEtiapine FUMARATE 25 MG TABLET PO SCH (20:42)
[2016-07-19] VITALS: BP 102/59; PULSE 82; RESP 18; TEMP 97.8; O2SAT 97
[2016-07-19 01:18] VITALS: BP 160/81; PULSE 82; RESP 18; TEMP 97.8; O2SAT 97
[2016-07-19] MEDS: IPRATROPIUM BROM 0.5 MG/2.5 ML VIAL.NEB (ATROVENT) INH SCH (01:40)
[2016-07-19 08:27] VITALS: BP 108/63; PULSE 87; RESP 18; TEMP 97.6; O2SAT 96
[2016-07-19] MEDS: MULTIVITAMINS,THERAPEUTIC 5 ML UDC GT SCH (09:09)
[2016-07-19] MEDS: CITALOPRAM HYDROBROMIDE 20 MG TABLET PO SCH (09:09)
[2016-07-19] MEDS: CARVEDILOL 6.25 MG TABLET (COREG) PO SCH (09:09)
[2016-07-19] MEDS: FAMOTIDINE 20 MG TABLET GT SCH (09:09)
[2016-07-19] MEDS: MESALAMINE 400 MG CAPSULE.DR GT SCH (09:10)
[2016-07-19] MEDS: PREDNISONE 20 MG TABLET PO SCH (09:10)
[2016-07-19] MEDS: CHOLESTYRAMINE/SUCROSE 4 GM/PACKET PO SCH (09:10)
[2016-07-19] MEDS: FISH OIL GT SCH (09:11)
[2016-07-19] MEDS: LACTASE 3000 UNIT TABLET GT SCH (09:12)
[2016-07-19 10:33] VITALS: BP 108/63; PULSE 66; RESP 18; TEMP 97.6; O2SAT 96
[2016-07-19] MEDS ORDERED: LORazepam 2 MG/ML VIAL IVP ONE (12:15)
== END 2016-07-19 12:35 | disposition short-term general hospital (02) | DRG 4 ==
LOC: SED 05:44 → SIC 07:30 → STU 06-18 15:50
PROVIDERS: ADMIT Internal Medicine Hospice and Palliative Medicine; ATTEND Internal Medicine Hospice and Palliative Medicine
PROC: 0BH17EZ Insertion of Endotracheal Airway into Trachea, Via Natural or Artificial Opening (ICD-10-PCS; principal; 2016-05-13)
PROC: 5A1955Z Respiratory Ventilation, Greater than 96 Consecutive Hours (ICD-10-PCS; 2016-05-13)
PROC: 5A12012 Performance of Cardiac Output, Single, Manual (ICD-10-PCS; 2016-05-13)
PROC: 05H633Z Insertion of Infusion Device into Left Subclavian Vein, Percutaneous Approach (ICD-10-PCS; 2016-05-15)
PROC: B547ZZA Ultrasonography of Left Subclavian Vein, Guidance (ICD-10-PCS; 2016-05-15)
PROC: 5A1D60Z (ICD-10-PCS; 2016-05-15)
PROC: 0B110F4 Bypass Trachea to Cutaneous with Tracheostomy Device, Open Approach (ICD-10-PCS; 2016-05-24)
PROC: 0DH63UZ Insertion of Feeding Device into Stomach, Percutaneous Approach (ICD-10-PCS; 2016-05-25)
PROC: 30243N1 Transfusion of Nonautologous Red Blood Cells into Central Vein, Percutaneous Approach (ICD-10-PCS; 2016-05-31)
PROC: 02H633Z Insertion of Infusion Device into Right Atrium, Percutaneous Approach (ICD-10-PCS; 2016-06-13)
PROC: 0DBK8ZX Excision of Ascending Colon, Via Natural or Artificial Opening Endoscopic, Diagnostic (ICD-10-PCS; 2016-06-21)
PROC: 0DBN8ZX Excision of Sigmoid Colon, Via Natural or Artificial Opening Endoscopic, Diagnostic (ICD-10-PCS; 2016-06-21)
PROC: 0DBH8ZX Excision of Cecum, Via Natural or Artificial Opening Endoscopic, Diagnostic (ICD-10-PCS; 2016-06-21)
DX: A41.9 Sepsis, unspecified organism (principal); J96.00 Acute respiratory failure, unspecified whether with hypoxia or hypercapnia; I46.9 Cardiac arrest, cause unspecified; I49.01 Ventricular fibrillation; N17.0 Acute kidney failure with tubular necrosis; I21.3 ST elevation (STEMI) myocardial infarction of unspecified site; K85.90 Acute pancreatitis without necrosis or infection, unspecified; J18.9 Pneumonia, unspecified organism; G93.1 Anoxic brain damage, not elsewhere classified; I42.1 Obstructive hypertrophic cardiomyopathy; E87.2 Acidosis; K92.2 Gastrointestinal hemorrhage, unspecified; K81.0 Acute cholecystitis; I95.9 Hypotension, unspecified; G25.3 Myoclonus; R73.9 Hyperglycemia, unspecified; R34 Anuria and oliguria; K58.9 Irritable bowel syndrome, unspecified; B96.3 Hemophilus influenzae [H. influenzae] as the cause of diseases classified elsewhere; K57.30 Diverticulosis of large intestine without perforation or abscess without bleeding; E78.00 Pure hypercholesterolemia, unspecified; I10 Essential (primary) hypertension; E78.5 Hyperlipidemia, unspecified; F19.10 Other psychoactive substance abuse, uncomplicated; K75.9 Inflammatory liver disease, unspecified; F32.9 Major depressive disorder, single episode, unspecified; F41.9 Anxiety disorder, unspecified; D64.9 Anemia, unspecified; E73.9 Lactose intolerance, unspecified; J06.9 Acute upper respiratory infection, unspecified; R13.10 Dysphagia, unspecified; I25.10 Atherosclerotic heart disease of native coronary artery without angina pectoris; Z87.891 Personal history of nicotine dependence; Z83.3 Family history of diabetes mellitus; Z82.49 Family history of ischemic heart disease and other diseases of the circulatory system; Z99.2 Dependence on renal dialysis; Z87.11 Personal history of peptic ulcer disease; Z79.899 Other long term (current) drug therapy; Z88.8 Allergy status to other drugs, medicaments and biological substances; Z91.040 Latex allergy status
CPT/HCPCS: 36415; 36600; 70450-TC; 70551; 71010; 72170-TC; 74000-TC; 74230; 76700-TC; 76770; 78226; 80048; 80053; 80061; 80074; 80076; 80164-TC; 81000-TC; 82150-TC; 82248-TC; 82272; 82550-TC; 82553-TC; 82607; 82728; 82803-TC; 82962; 83036; 83540-TC; 83550-TC; 83605; 83690-TC; 83735-TC; 83880; 84100-TC; 84443-TC; 84478-TC; 84484; 85007; 85018-TC; 85025; 85027; 85610-TC; 85651-TC; 85730-TC; 86140; 86886; 86900; 86901; 86920; 87040-TC; 87045-TC; 87046; 87070-TC; 87081; 87086; 87205-TC; 87230-TC; 88305; 90935; 90937; 92506-GN; 92507-GN; 92526-GN; 92610-GN; 92611-GN; 93005; 93306; 94002; 94003; 94640; 94760; 95816; 97110-GP; 97530-GP; 99291; A6209; A9537; C1751; C9113; G0479; J0171; J0330; J0610; J0696; J0885; J1030; J1170; J1265; J1450; J1644; J1650; J1815; J1885; J1953; J1956; J2060; J2185; J2250; J2270; J2354; J2370; J2543; J2704; J2916; J2930; J2997; J3010; J3230; J3475; J3480; J3490; J7030; J7040; J7042; J7050; J7060; J7131; J7512; P9021; Q9964

== ENCOUNTER 2020-04-22 10:47 | Emergency (ER) | payer OTHER, MEDICAID ==
[~2020-04-22] VITALS: Ht 182.9 cm; Wt 90.7 kg
[2020-04-22 10:47] VITALS: BP_SYST 134
[~2020-04-22 10:47] MED LIST changes: -FERR-69 PO; -LISI-600 PO; -LISI10TA5 PO; +LISI40TA4 PO; +ROSU10TA2 PO; -ROSU40TA PO
[2020-04-22] MEDS ORDERED: LIP40 PO (11:16)
[2020-04-22] MEDS ORDERED: FERR325T22 PO (11:16)
[2020-04-22] MEDS ORDERED: ICOS1CAP PO (11:16)
[2020-04-22] MEDS ORDERED: MIRT30TA PO (11:16)
[2020-04-22] MEDS ORDERED: PRO40 PO (11:16)
[2020-04-22] MEDS ORDERED: LACT1CAP72 PO (11:16)
[2020-04-22] MEDS ORDERED: BACL20TA PO (11:16)
[2020-04-22] MEDS ORDERED: MULT-1200 PO (11:16)
[2020-04-22] MEDS ORDERED: TAMS-11 PO (11:16)
[2020-04-22] MEDS ORDERED: [UNRECOGNIZED DRUG - CODE] RC (11:16)
[2020-04-22] MEDS ORDERED: GLUXR500 PO (11:16)
[2020-04-22] MEDS ORDERED: FINA1TAB17 PO (11:16)
[2020-04-22] MEDS ORDERED: LEVE500T9 PO (11:16)
[2020-04-22] MEDS ORDERED: PEN250 PO (11:16)
[2020-04-22] MEDS ORDERED: MESA500C PO (11:16)
[2020-04-22] MEDS ORDERED: LIDOCAINE 1% 10 MG/ML, 20 ML MDV INJ ONE (11:45)
[2020-04-22] MEDS ORDERED: NACL 0.9% 1,000 ML IV ONE (11:45)
[2020-04-22] MEDS ORDERED: DIPH-TET-PERTUS Vaccine 0.5 ML VIAL (ADACEL) I.M. ONE (12:00)
[2020-04-22 12:06] LABS: BASOPHILS % (AUTO) 0.5 % (0.0-2.0); EOSINOPHILS # (AUTO) 0.1 K/uL (0.0-0.4); EOSINOPHILS % (AUTO) 0.9 % (0.0-4.0); HEMATOCRIT 42.2 % (36-54); HEMOGLOBIN 13.8 g/dL (14.0-18.0); LYMPHOCYTES # (AUTO) 1.6 K/uL (1.0-5.5); LYMPHOCYTES % (AUTO) 19.8 % (20.5-51.5); MEAN CORPUSCULAR HEMOGLOBIN 26 pg (27-31); MEAN CORPUSCULAR HGB CONC 33 % (32-36); MEAN CORPUSCULAR VOLUME 81 fL (79.0-98.0); MONOCYTES # (AUTO) 0.4 K/uL (0.0-1.0); MONOCYTES % (AUTO) 5.2 % (1.7-9.3); NEUTROPHILS # (AUTO) 6.1 K/uL (1.8-7.7); NEUTROPHILS % (AUTO) 73.6 % (40.0-70.0); PLATELET COUNT (AUTO) 237 K/uL (130-430); RED BLOOD CELL COUNT(AUTO) 5.22 MIL/uL (4.2-6.2); RED CELL DISTRIBUTION WIDTH 15.7 % (9.0-15.0); WHITE BLOOD COUNT (AUTO) 8.3 K/uL (4.8-10.8)
[2020-04-22 12:35] LABS: ANION GAP 4 (5-15); CALCIUM 8.5 mg/dL (8.4-11.0); CHLORIDE 104 mmol/L (98-107); CREATININE 0.92 mg/dL (0.55-1.30); GLUCOSE 132 mg/dL (70-99); POTASSIUM 4.6 mmol/L (3.5-5.1); SODIUM SERUM 140 mmol/L (136-145); UREA NITROGEN, BLOOD 14 mg/dL (8-21)
[2020-04-22 12:41] LABS: ALANINE AMINOTRANSFERASE 27 U/L (12-78); ALBUMIN 3.5 g/dL (3.4-4.8); ASPARTATE AMINOTRANSFERASE 17 U/L (10-37); TOTAL BILIRUBIN 0.4 mg/dL (0.0-1.0)
[2020-04-22 12:44] LABS: GFR AFRICAN AMERICAN 109 mL/min (>90)
[2020-04-22 14:35] VITALS: BP_SYST 127
== END 2020-04-22 14:35 | disposition home or self-care (01) ==
LOC: SED 10:47
DX: S01.81XA Laceration without foreign body of other part of head, initial encounter (principal); R55 Syncope and collapse; I10 Essential (primary) hypertension; E11.9 Type 2 diabetes mellitus without complications; K21.9 Gastro-esophageal reflux disease without esophagitis; Z88.8 Allergy status to other drugs, medicaments and biological substances; Z88.1 Allergy status to other antibiotic agents; Z79.84 Long term (current) use of oral hypoglycemic drugs; Z79.899 Other long term (current) drug therapy; W18.39XA Other fall on same level, initial encounter; Y93.89 Activity, other specified; Y92.89 Other specified places as the place of occurrence of the external cause; Y99.8 Other external cause status
CPT/HCPCS: 36415; 70450-TC; 70486-TC; 71045; 73560-TC; 76376; 80053; 84484; 85025; 93005; 96360; 99285

== ENCOUNTER 2023-12-01 13:25 | Emergency (ER) | payer OTHER, MEDICAID ==
[~2023-12-01] VITALS: Ht 172.7 cm; Wt 68.0 kg
[~2023-12-01 13:25] MED LIST changes: +BACL20TA PO; +FERR324T22 PO; +FINA1TAB17 PO; +GLUXR500 PO; +ICOS1CAP PO; +LACT1CAP72 PO; +LEVE500T9 PO; -LEVO500T20 PO; +LIP40 PO; -LISI40TA4 PO; +MESA500C PO; -METR500T PO; +MULT-1200 PO; -NOR10 PO; +PEN250 PO; +PRO40 PO; -ROSU10TA2 PO; +TAMS-11 PO; +[UNRECOGNIZED DRUG - CODE] PO; +[UNRECOGNIZED DRUG - CODE] RC
[2023-12-01 13:26] VITALS: BP_SYST 104; PULSE 73; RESP 18; TEMP 98; O2SAT 94
[2023-12-01 15:01] LABS: HEMOGLOBIN 13.6 g/dL (14.0-18.0); MEAN CORPUSCULAR VOLUME 82 fL (79.0-98.0); PLATELET COUNT (AUTO) 261 K/uL (130-430)
[2023-12-01] MEDS: NACL 0.9% 1,000 ML IV ONE (15:09)
[2023-12-01 15:13] LABS: BASOPHILS % (AUTO) 0.3 % (0.0-2.0); EOSINOPHILS # (AUTO) 0.1 K/uL (0.0-0.4); EOSINOPHILS % (AUTO) 1.3 % (0.0-4.0); HEMATOCRIT 41.1 % (36-54); LYMPHOCYTES # (AUTO) 1.6 K/uL (1.0-5.5); LYMPHOCYTES % (AUTO) 15.4 % (20.5-51.5); MEAN CORPUSCULAR HEMOGLOBIN 27 pg (27-31); MEAN CORPUSCULAR HGB CONC 33 % (32-36); MONOCYTES # (AUTO) 0.6 K/uL (0.0-1.0); MONOCYTES % (AUTO) 5.7 % (1.7-9.3); NEUTROPHILS # (AUTO) 8.1 K/uL (1.8-7.7); NEUTROPHILS % (AUTO) 77.3 % (40.0-70.0); RED BLOOD CELL COUNT(AUTO) 5.04 MIL/uL (4.2-6.2); RED CELL DISTRIBUTION WIDTH 14.8 % (9.0-15.0); WHITE BLOOD COUNT (AUTO) 10.5 K/uL (4.8-10.8)
[2023-12-01 15:22] LABS: ALANINE AMINOTRANSFERASE 23 U/L (12-78); ALBUMIN 3.7 g/dL (3.4-4.8); ANION GAP 8 (5-15); ASPARTATE AMINOTRANSFERASE 20 U/L (10-37); CALCIUM 9.3 mg/dL (8.4-11.0); CARBON DIOXIDE 31 mmol/L (23-29); CHLORIDE 106 mmol/L (98-107); GFR AFRICAN AMERICAN 111 mL/min (>90); GFR NON AFRICAN-AMERICAN 91 mL/min (>90); GLUCOSE 101 mg/dL (74-106); POTASSIUM 4.7 mmol/L (3.5-5.1); SODIUM SERUM 145 mmol/L (136-145); TOTAL BILIRUBIN 0.4 mg/dL (0.0-1.0); TOTAL PROTEIN, SERUM 8.1 g/dL (6.4-8.3); UREA NITROGEN, BLOOD 20 mg/dL (8-21)
[2023-12-01 15:24] LABS: BILIRUBIN,DIRECT 0.1 mg/dL (0.0-0.3)
[2023-12-01] MEDS ORDERED: FERR324T22 PO (15:28)
[2023-12-01] MEDS ORDERED: COR25 PO (15:28)
[2023-12-01] MEDS ORDERED: BACL20TA PO (15:28)
[2023-12-01] MEDS ORDERED: [UNRECOGNIZED DRUG - CODE] PO (15:28)
[2023-12-01] MEDS ORDERED: MIRT-145 PO (15:28)
[2023-12-01] MEDS ORDERED: LACT1CAP57 PO (15:28)
[2023-12-01] MEDS ORDERED: DESV50TA4 PO (15:28)
[2023-12-01] MEDS ORDERED: METF-379 PO (15:28)
[2023-12-01 17:30] VITALS: BP_SYST 104; PULSE 73; RESP 18; TEMP 98; O2SAT 94
== END 2023-12-01 17:30 | disposition home or self-care (01) ==
LOC: SED 13:25
DX: S80.212A Abrasion, left knee, initial encounter (principal); S80.211A Abrasion, right knee, initial encounter; R55 Syncope and collapse; W07.XXXA Fall from chair, initial encounter; Y93.89 Activity, other specified; Y92.89 Other specified places as the place of occurrence of the external cause; Y99.8 Other external cause status; K21.9 Gastro-esophageal reflux disease without esophagitis; I10 Essential (primary) hypertension; E11.9 Type 2 diabetes mellitus without complications; Z95.0 Presence of cardiac pacemaker; Z98.890 Other specified postprocedural states; Z88.1 Allergy status to other antibiotic agents; Z91.011 Allergy to milk products; Z79.899 Other long term (current) drug therapy; Z79.2 Long term (current) use of antibiotics
CPT/HCPCS: 99285; 96360; 70450; 71045; 96361; 80076; 80048; 83880; 85025; 84484; 36415; 93005; 73560; 82948; J7030